=== PATIENT | male | born 1935 | race Caucasian/White ===

== ENCOUNTER 2017-06-10 11:00 | Observation (INO) | payer MEDICARE, OTHER ==
--- NOTE | 2017-06-10 11:12 | ER Document Report ---
ED General - General Stated Complaint: SYNCOPE Time Seen by Provider: 06/10/17 11:05 Notes: 82-year-old male with no reported medical problems presents with syncope without prodrome. Last thing he remembers he was sitting at the counter at " [employer]" when he vomited and lost consciousness. Paramedics found him pale diaphoretic with a pressure of 80 oh systolic. Given the small amount of fluid. Blood sugar was normal. His initial ECG was normal however he then went into an irregular rhythm for the paramedics. He currently has no complaints. He specifically denies chest pain abdominal pain shortness of breath dizziness unilateral weakness or numbness. TRAVEL OUTSIDE OF THE [place] IN LAST 30 DAYS: No - Related Data Allergies/Adverse Reactions: guaifenesin [From Entex] Allergy (Verified 06/10/17 11:20) phenylephrine HCl [From Entex] Allergy (Verified 06/10/17 11:20) phenylpropanolamine [From Entex] Allergy (Verified 06/10/17 11:20) pseudoephedrine tannate [From Entex] Allergy (Verified 06/10/17 11:20) Home Medications: Current Home Medications Ergocalciferol (Vitamin D2) [Vitamin D2] 50,000 unit PO ASDIR 06/10/17 [History] Past Medical History - General Information source: Patient - Social History Smoking Status: Current Every Day Smoker Family History: Reviewed & Not Pertinent - Past Medical History Cardiac Medical History: Reports: Hx Hypertension Denies: Hx Pulmonary Embolism Pulmonary Medical History: Reports: Hx Pneumonia Denies: Hx Asthma, Hx Bronchitis, Hx COPD, Hx Respiratory Failure, Hx Sleep Apnea, Hx Tuberculosis Neurological Medical History: Denies: Hx Cerebrovascular Accident, Hx Seizures Endocrine Medical History: Denies: Hx Graves' Disease, Hx Hyperthyroidism, Hx Hypothyroidism Renal/ Medical History: Denies: Hx Benign Prostatic Hyperplasia, Hx End Stage Renal Disease, Hx Kidney Stones, Hx Peritoneal Dialysis Malignancy Medical History: Denies Hx Leukemia, Denies Hx Lung Cancer, Reports Hx Lymphoma, Reports Hx Prostate Cancer GI Medical History: Reports: Hx Gastroesophageal Reflux Disease. Denies: Hx Crohn's Disease, Hx Hiatal Hernia, Hx Irritable Bowel, Hx Liver Failure, Hx Pancreatitis, Hx Ulcer Musculoskeltal Medical History: Denies Hx Arthritis, Denies Hx Fibromyalgia, Denies Hx Muscular Dystrophy Traumatic Medical History: Reports: Hx Fractures - right leg Infectious Medical History: Denies: Hx HIV Past Surgical History: Reports: Hx Tonsillectomy. Denies: Hx Appendectomy, Hx Bowel Surgery, Hx Cholecystectomy, Hx Colostomy, Hx Coronary Artery Bypass Graft , Hx Gastric Bypass Surgery, Hx Herniorrhaphy, Hx Pacemaker - Immunizations Hx Diphtheria, Pertussis, Tetanus Vaccination: Yes Hx Pneumococcal Vaccination: 07/07/00 Review of Systems - Review of Systems Notes: REVIEW OF SYSTEMS GEN: Denies fever, chills, weight loss ENT: Denies sore throat, nasal discharge, ear pain EYES: Denies blurry vision, eye pain, discharge CV: Denies chest pain, palpitations, edema RESP: Denies cough, shortness of breath, wheezing GI: D vomiting MSK: Denies joint pain/swelling, edema, SKIN: Denies rash, skin lesions LYMPH: Denies swollen glands/lymph nodes NEURO: Denies headache, focal weakness or numbness, dizziness PSYCH: Denies depression, suicidal or homicidal ideation PHYSICAL EXAMINATION General: No acute distress, well-nourished Head: Atraumatic, normocephalic ENT: Mouth normal, oropharynx moist, no exudates or tonsillar enlargement Eyes: Conjunctiva normal, pupils equal, lids normal Neck: No JVD, supple, no guarding CVS: Normal rate, regular rhythm, no murmurs Resp: No resp distress, equal and normal breath sounds bilaterally GI: Nondistended, soft, no tenderness to palpation, no rebound or guarding Ext: No deformities, no edema, normal range of motion in upper and lower ext Back: No CVA or midline TTP Skin: No rash, warm Lymphatic: No lymphadeopathy noted Neuro: Awake, alert. Face symmetric. GCS 15. Physical Exam - Vital signs Vitals: Temp Pulse Resp BP Pulse Ox 97.3 F 79 16 143/64 H 98 06/10/17 11:08 06/10/17 11:08 06/10/17 11:08 06/10/17 11:08 06/10/17 11:08 Course - Re-evaluation Re-evalutation: 06/10/17 11:11 Otherwise healthy 82-year-old male presents with worrisome sounding syncope with vomiting, sick be without prodrome in a regular rhythm prior to arrival in the ED. Was hypotensive. Now normotensive. No stigmata of valvular disease or other cause of syncope on exam. Differential includes cardiac arrhythmia electrolyte abnormality less likely stroke bleed or subarachnoid hemorrhage. Workup will include laboratory testing, EKG and cardiac monitoring. Given the abnormal EKG prior to arrival at the patient's age she will need to be admitted for observation. LAbs wnl. Trop negative. Spoke with Ravi, agrees with admitting to obs. 06/10/17 12:58 - Vital Signs Vital signs: Temp Pulse Resp BP Pulse Ox 97.3 F 79 16 143/64 H 98 06/10/17 11:08 06/10/17 11:08 06/10/17 11:15 06/10/17 11:08 06/10/17 11:08 - Laboratory Result Diagrams: 06/10/17 11:32 06/10/17 11:32 Laboratory results interpreted by me: 06/10/17 06/10/17 11:32 11:32 WBC 11.5 H RBC 3.94 L MCV 100 H MCH 34.1 H RDW 14.7 H Seg Neutrophils % 79.8 H Lymphocytes % 11.7 L Absolute Neutrophils 9.2 H BUN 22 H - EKG Interpretation by Me EKG shows normal: Sinus rhythm - left axis dev, [place] When compared to previous EKG there are: Changes noted - no FABIAN/STD Discharge - Discharge Clinical Impression: Syncope Qualifiers: Syncope type: unspecified Qualified Code(s): R55 - Syncope and collapse Condition: Good Disposition: ADMITTED OBSERVATION Admitting Provider: Kelly Referrals: HEMAL BHATIA MD [Primary Care Provider] - Follow up as needed
--- NOTE | 2017-06-10 11:53 | EKG REPORT ---
SEVERITY:- ABNORMAL ECG - SINUS RHYTHM NONSPECIFIC IVCD WITH LAD PROBABLE ANTEROSEPTAL INFARCT, OLD : Confirmed by: Kasie Ruiz 10-Jun-2017 11:52:56
[2017-06-10 12:04] LABS: ABSOLUTE EOSINOPHILS # (AUTO) 0.1 10^3/uL (0.0-0.6); ABSOLUTE LYMPHOCYTES (AUTO) 1.3 10^3/uL (0.5-4.7); ABSOLUTE MONOCYTES (AUTO) 0.9 10^3/uL (0.1-1.4); ABSOLUTE NEUT (AUTO) 9.2 10^3/uL (1.7-8.2); BASOPHILS % (AUTO) 0.4 % (0-2); EOSINOPHILS % (AUTO) 0.6 % (0-6); HEMATOCRIT 39.3 % (37.9-51.0); HEMOGLOBIN 13.5 g/dL (13.5-17.0); HGB HCT DIFFERENCE 1.2; LYMPHOCYTES % (AUTO) 11.7 % (13-45); MEAN CORPUSCULAR HEMOGLOBIN 34.1 pg (27.0-33.4); MEAN CORPUSCULAR HGB CONC 34.2 g/dL (32.0-36.0); MEAN CORPUSCULAR VOLUME 100 fl (80-97); MONOCYTES % (AUTO) 7.5 % (3-13); RED BLOOD COUNT 3.94 10^6/uL (4.35-5.55); RED CELL DISTRIBUTION WIDTH 14.7 % (11.5-14.0); SEGMENTED NEUTROPHILS % (AUTO) 79.8 % (42-78); WHITE BLOOD COUNT 11.5 10^3/uL (4.0-10.5)
[2017-06-10 12:22] LABS: ANION GAP 11 (5-19); BLOOD UREA NITROGEN 22 mg/dL (7-20); CARBON DIOXIDE 28 mmol/L (22-30); CHLORIDE 103 mmol/L (98-107); GLUCOSE 103 mg/dL (75-110); POTASSIUM 4.2 mmol/L (3.6-5.0); SODIUM 141.6 mmol/L (137-145)
[2017-06-10 15:04] LABS: APPEARANCE,URINE CLEAR; BILIRUBIN,URINE NEGATIVE (NEGATIVE); GLUCOSE, URINE NEGATIVE (NEGATIVE); KETONES,URINE NEGATIVE (NEGATIVE); LEUKOCYTE ESTERASE,URINE NEGATIVE (NEGATIVE); NITRITE,URINE NEGATIVE (NEGATIVE); PROTEIN,URINE NEGATIVE (NEGATIVE); UROBILINOGEN,URINE NEGATIVE mg/dL (<2.0)
[2017-06-10 15:13] LABS: BACTERIA,URINE TRACE /HPF
[2017-06-10] MEDS ORDERED: NORMAL SALINE 1000 ML 1,000 ML IV PRN (16:35)
--- NOTE | 2017-06-10 16:49 | PDOC H&P ---
History of Present Illness Admission Date/PCP: 06/10/17 13:43 HEMAL BHATIA, Patient complains of: Near syncope with hypotension vomiting and possible arrhythmia History of Present Illness: JOSIE TRUONG is a 82 year old male Past Medical History Cardiac Medical History: Reports: Hypertension Denies: Pulmonary Embolism Pulmonary Medical History: Reports: Pneumonia Denies: Asthma, Bronchitis, Chronic Obstructive Pulmonary Disease (COPD), Respiratory Failure, Sleep Apnea, Tuberculosis Neurological Medical History: Denies: Seizures Endocrine Medical History: Denies: Hyperthyroidism, Hypothyroidism Renal/ Medical History: Denies: End Stage Renal Disease Malignancy Medical History: Reports: Lymphoma Denies: Leukemia, Lung Cancer GI Medical History: Reports: Gastroesophageal Reflux Disease Denies: Crohn's Disease, Hiatal Hernia Musculoskeltal Medical History: Denies: Arthritis, Fibromyalgia Hematology: Reports: Anemia Denies: Hemophilia, Sickle Cell Disease Infectious Medical History: Denies: HIV Past Surgical History Past Surgical History: Reports: Tonsillectomy Denies: Appendectomy, Cholecystectomy, Colostomy, Coronary Artery Bypass Graft, Gastric Bypass Surgery, Herniorrhaphy, Pacemaker Social History Smoking Status: Current Every Day Smoker Hx Recreational Drug Use: No Hx Prescription Drug Abuse: No Family History Family History: Reviewed & Not Pertinent Parental Family History Reviewed: Yes Children Family History Reviewed: Yes Sibling(s) Family History Reviewed.: Yes Medication/Allergy Home Medications: Aspirin [Ecotrin 81 mg EC Tablet] 81 mg PO DAILY 06/10/17 Calcium Carbonate [Calcium] 600 mg PO DAILY 06/10/17 Ergocalciferol (Vitamin D2) [Vitamin D2] 50,000 units PO [id number] 06/10/17 Multivitamin [Daily Multiple Vitamin] 1 tab PO DAILY 06/10/17 Prednisone [Deltasone 10 mg Tablet] 10 mg PO DAILY 06/10/17 Allergies/Adverse Reactions: guaifenesin [From Entex] Allergy (Verified 06/10/17 11:20) phenylephrine HCl [From Entex] Allergy (Verified 06/10/17 11:20) phenylpropanolamine [From Entex] Allergy (Verified 06/10/17 11:20) pseudoephedrine tannate [From Entex] Allergy (Verified 06/10/17 11:20) Review of Systems All systems: as per PMH Physical Exam Vital Signs: Temp Pulse Resp BP Pulse Ox 97.3 F 79 17 134/64 H 97 06/10/17 11:08 06/10/17 11:08 06/10/17 14:01 06/10/17 14:00 06/10/17 14:01 General appearance: PRESENT: mild distress Head exam: PRESENT: atraumatic Eye exam: PRESENT: conjunctiva pink Mouth exam: PRESENT: dry mucosa Neck exam: ABSENT: carotid bruit, JVD Respiratory exam: PRESENT: clear to auscultation [place]iney Cardiovascular exam: PRESENT: RRR, +S1, +S2 Pulses: PRESENT: +1 pedal pulses bilateral Vascular exam: PRESENT: normal capillary refill GI/Abdominal exam: PRESENT: normal bowel sounds, soft Extremities exam: PRESENT: full ROM Musculoskeletal exam: PRESENT: ambulatory Neurological exam: PRESENT: alert, awake, oriented to time, reflexes normal, CN II-XII grossly intact, normal gait Results Laboratory Results: 06/10/17 14:05 Urine Color YELLOW Urine Appearance CLEAR Urine pH 6.0 Ur Specific [place] 1.010 Urine Protein NEGATIVE Urine Glucose (UA) NEGATIVE Urine Ketones NEGATIVE Urine Blood NEGATIVE Urine Nitrite NEGATIVE Ur Leukocyte Esterase NEGATIVE Assessment & Plan - Diagnosis (1) Hypotension Qualifiers: Hypotension type: unspecified hypotension type Qualified Code(s): I95.9 - Hypotension, unspecified Is this a current diagnosis for this admission?: Yes Plan: Possibly vasovagal. Will start IV fluids (2) Syncope Qualifiers: Syncope type: unspecified Qualified Code(s): R55 - Syncope and collapse Is this a current diagnosis for this admission?: Yes Plan: Vasovagal versus arrhythmia. Will start IV fluids and continue monitoring (3) Dehydration Is this a current diagnosis for this admission?: Yes Plan: Start IV fluids normal saline at 125 (4) Arrhythmia Is this a current diagnosis for this admission?: Yes Plan: Continue continuous monitoring to rule out causes of syncope
[2017-06-10] MEDS ORDERED: ERGOCALCIFEROL (VITAMIN D2) 50000 UNIT (1.25 MG) CAPSULE PO SCH (17:00)
[2017-06-10 17:51] LABS: CREATINE KINASE MB 0.83 ng/mL (<4.55)
[2017-06-10 17:52] LABS: TROPONIN I < 0.012 ng/mL
[2017-06-10] MEDS ORDERED: ENOXAPARIN SODIUM INJ 40 MG/0.4 ML DISP.SYRIN SUBCUT ONE (19:00)
[2017-06-10 23:38] LABS: CREATINE KINASE MB 0.64 ng/mL (<4.55); TROPONIN I 0.015 ng/mL
[2017-06-11 04:37] VITALS: BP 95/69
[2017-06-11 05:32] LABS: ANION GAP 8 (5-19); BLOOD UREA NITROGEN 19 mg/dL (7-20); CALCIUM 8.4 mg/dL (8.4-10.2); CARBON DIOXIDE 25 mmol/L (22-30); CHLORIDE 108 mmol/L (98-107); CREATINE KINASE 22 U/L (55-170); CREATININE RESULT 0.75 mg/dL (0.52-1.25); GLUCOSE 84 mg/dL (75-110); MAGNESIUM 1.6 mg/dL (1.6-2.3); POTASSIUM 4.3 mmol/L (3.6-5.0); SODIUM 141.3 mmol/L (137-145)
[2017-06-11 05:44] LABS: CREATINE KINASE MB 0.63 ng/mL (<4.55)
[2017-06-11 05:52] LABS: TROPONIN I < 0.012 ng/mL
--- NOTE | 2017-06-11 07:14 | EKG REPORT ---
SEVERITY:- ABNORMAL ECG - SINUS RHYTHM BORDERLINE IVCD WITH LAD : Confirmed by: Kasie Ruiz 11-Jun-2017 17:43:18
--- NOTE | 2017-06-11 08:43 | PDOC DISCHARGE SUMMARY ---
General - Admit/Disc Date/PCP Admission Date/Primary Care Provider: 06/10/17 13:43 HEMAL BHATIA, Discharge Date: 06/11/17 - Discharge Diagnosis (1) Hypotension Is this a current diagnosis for this admission?: Yes Summary: Improved with rehydration. (2) Syncope Is this a current diagnosis for this admission?: Yes Summary: Resolved continue current medications (3) Dehydration Is this a current diagnosis for this admission?: Yes Summary: Improved with IV fluids (4) Arrhythmia Is this a current diagnosis for this admission?: Yes Summary: No signs of arrhythmia. The monitor strip noticed by the EMS might have been just an artifact - Additional Information Discharge Diet: As Tolerated Discharge Activity: Activity As Tolerated Home Medications: Aspirin [Ecotrin 81 mg EC Tablet] 81 mg PO DAILY 06/10/17 Calcium Carbonate [Calcium] 600 mg PO DAILY 06/10/17 Ergocalciferol (Vitamin D2) [Vitamin D2] 50,000 units PO [id number] 06/10/17 Multivitamin [Daily Multiple Vitamin] 1 tab PO DAILY 06/10/17 Prednisone [Deltasone 10 mg Tablet] 10 mg PO DAILY 06/10/17 History of Present Illness History of Present Illness: JOSIE TRUONG is a 82 year old male Hospital Course Hospital Course: The patient did well after the admission for an observation. He has received IV fluids. He was monitored for 24 hours without any signs of arrhythmia or syncope Physical Exam Vital Signs: Temp Pulse Resp BP Pulse Ox 98.4 F 74 18 95/69 L 94 06/11/17 04:28 06/11/17 04:28 06/11/17 04:28 06/11/17 04:28 06/11/17 04:28 Intake & Output 06/10/17 06/11/17 06/12/17 06:59 06:59 06:59 Intake Total 1500 Output Total 900 Balance 600 General appearance: PRESENT: no acute distress Head exam: PRESENT: atraumatic Eye exam: PRESENT: conjunctiva pink Mouth exam: PRESENT: moist Neck exam: ABSENT: carotid bruit, JVD Respiratory exam: PRESENT: clear to auscultation destiney Cardiovascular exam: PRESENT: RRR, +S1, +S2 Pulses: PRESENT: +1 pedal pulses bilateral GI/Abdominal exam: PRESENT: normal bowel sounds, soft Extremities exam: PRESENT: full ROM Musculoskeletal exam: PRESENT: ambulatory Neurological exam: PRESENT: alert Results Laboratory Results: 06/11/17 05:06 06/10/17 06/11/17 14:05 05:06 Sodium 141.3 Potassium 4.3 Chloride 108 H Carbon Dioxide 25 Anion Gap 8 BUN 19 Creatinine 0.75 Est GFR ( Amer) > 60 Est GFR (Non-Af Amer) > 60 Glucose 84 Calcium 8.4 Magnesium 1.6 Urine Color YELLOW Urine Appearance CLEAR Urine pH 6.0 Ur Specific [place] 1.010 Urine Protein NEGATIVE Urine Glucose (UA) NEGATIVE Urine Ketones NEGATIVE Urine Blood NEGATIVE Urine Nitrite NEGATIVE Ur Leukocyte Esterase NEGATIVE 06/10/17 06/10/17 06/10/17 17:08 17:08 23:00 Creatine Kinase 24 L 23 L CK-MB (CK-2) 0.83 Troponin I < 0.012 06/10/17 06/11/17 06/11/17 23:00 05:06 05:06 Creatine Kinase 22 L CK-MB (CK-2) 0.64 0.63 Troponin I 0.015 < 0.012
[2017-06-11] MEDS ORDERED: (PENDING PHARMACY ID) (Calcium Carbonate [Calcium] 600 MG) PO SCH (10:00)
[2017-06-11] MEDS ORDERED: ENOXAPARIN SODIUM INJ 40 MG/0.4 ML DISP.SYRIN SUBCUT SCH (10:00)
[2017-06-11] MEDS ORDERED: MULTIVITAMIN TABLET PO SCH (10:00)
[2017-06-11] MEDS ORDERED: PREDNISONE 10 MG TABLET PO SCH (10:00)
[2017-06-11] MEDS ORDERED: ASPIRIN 81 MG TABLET, ENT COATED PO SCH (10:00)
[2017-06-11] MEDS ORDERED: CALCIUM CARBONATE 500 MG TABLET PO SCH (10:00)
== END 2017-06-11 10:27 | disposition home or self-care (01) ==
LOC: ER 11:00 → EH 13:43
PROVIDERS: ADMIT Internal Medicine; ATTEND Internal Medicine
DX: I95.9 Hypotension, unspecified (principal); R55 Syncope and collapse; E86.0 Dehydration; I49.9 Cardiac arrhythmia, unspecified; R11.10 Vomiting, unspecified; F17.200 Nicotine dependence, unspecified, uncomplicated; Z79.899 Other long term (current) drug therapy; Z79.82 Long term (current) use of aspirin; Z87.19 Personal history of other diseases of the digestive system
CPT/HCPCS: 93005 ×2; 99285; 36415 ×2; 82553 ×2; 82550 ×2; 83735; 85025; 80048 ×2; 81001; 84484 ×2; 93010 ×2; A9270 ×4; J1650; J7030; G0378; J7512

== ENCOUNTER 2017-11-01 21:55 | Inpatient (IN) | payer MEDICARE, OTHER ==
[2017-11-01 22:30] LABS: HEMATOCRIT 41.5 % (37.9-51.0); HEMOGLOBIN 14.1 g/dL (13.5-17.0); MEAN CORPUSCULAR HGB CONC 34.1 g/dL (32.0-36.0); MEAN CORPUSCULAR VOLUME 100 fl (80-97); RED BLOOD COUNT 4.16 10^6/uL (4.35-5.55); RED CELL DISTRIBUTION WIDTH 14.1 % (11.5-14.0)
[2017-11-01 22:34] LABS: INTERNATIONAL RATION (INR) 1.01; PROTHROMBIN TIME 13.8 SEC (11.4-15.4)
[2017-11-01 22:43] LABS: ALANINE AMINOTRANSFERASE 32 U/L (21-72); ALBUMIN 3.8 g/dL (3.5-5.0); ALKALINE PHOSPHATASE 100 U/L (38-126); ANION GAP 11 (5-19); ASPARTATE AMINO TRANSFERASE 24 U/L (17-59); BILIRUBIN,DIRECT 0.2 mg/dL (0.0-0.4); BILIRUBIN,TOTAL 1.7 mg/dL (0.2-1.3); BLOOD UREA NITROGEN 19 mg/dL (7-20); CALCIUM 9.4 mg/dL (8.4-10.2); CARBON DIOXIDE 27 mmol/L (22-30); CHLORIDE 101 mmol/L (98-107); GLUCOSE 108 mg/dL (75-110); POTASSIUM 4.2 mmol/L (3.6-5.0); TOTAL PROTEIN 6.2 g/dL (6.3-8.2)
[2017-11-01 22:47] LABS: ABSOLUTE LYMPHOCYTES# (MANUAL) 1.7 10^3/uL (0.5-4.7); ABSOLUTE NEUTROPHILS# (MANUAL) 21.4 10^3/uL (1.7-8.2); BAND NEUTROPHILS % (MANUAL) 2 % (3-5); BASOPHILS % (MANUAL) 0 % (0-2); EOSINOPHILS % (MANUAL) 0 % (0-6); LYMPHOCYTES % (MANUAL) 7 % (13-45); METAMYELOCYTES % (MANUAL) 1 % (0); MONOCYTES % (MANUAL) 4 % (3-13); SEGMENTED NEUTROPHILS % (MAN) 86 % (42-78); TOTAL CELLS COUNTED 100
[2017-11-01 22:49] LABS: ANISOCYTOSIS SLIGHT; PLATELET COMMENT ADEQUATE; PLATELET LARGE PRESENT; TOXIC VACUOLATION PRESENT
[2017-11-01 22:57] LABS: PLATELET COUNT 178 10^3/uL (150-450)
[2017-11-01 23:05] LABS: VENOUS BLOOD BASE EXCESS 1.9 mmol/L; VENOUS BLOOD HCO3 27.5 mmol/L (20-32); VENOUS BLOOD PCO2 46.3 mmHg (35-63); VENOUS BLOOD PH 7.39 (7.30-7.42)
--- NOTE | 2017-11-01 23:31 | ER Document Report ---
ED Fall - General Mode of Arrival: Ambulatory Information source: Patient TRAVEL OUTSIDE OF THE [place] IN LAST 30 DAYS: No <KRISTOPHER REDDING - Last Filed: 11/02/17 01:50> <IRIS CASTANEDA - Last Filed: 11/02/17 03:58> - General Chief Complaint: Fall Stated Complaint: FALLS Time Seen by Provider: 11/01/17 22:05 Notes: Patient is an 82 year old male that presents to the emergency department today with complaints of frequent falls at home. states the patient fell twice prior to arrival. states the patient states he felt dizzy prior to the fall. states that the patient complained of a sore throat recently. states the patient has not been drinking fluids much recently. Patient denies any abdominal pain or recent hospital admissions. (KRISTOPHER REDDING) - Related data Allergies/Adverse Reactions: guaifenesin [From Entex] Allergy (Verified 06/10/17 11:20) phenylephrine HCl [From Entex] Allergy (Verified 06/10/17 11:20) phenylpropanolamine [From Entex] Allergy (Verified 06/10/17 11:20) pseudoephedrine tannate [From Entex] Allergy (Verified 06/10/17 11:20) Past Medical History - General Information source: Patient - Social History Smoking Status: Unknown if Ever Smoked Cigarette use (# per day): No Frequency of alcohol use: None Drug Abuse: None Lives with: Family Family History: Reviewed & Not Pertinent Patient has suicidal ideation: No Patient has homicidal ideation: No - Past Medical History Cardiac Medical History: Reports: Hx Hypertension Pulmonary Medical History: Reports: Hx Pneumonia Malignancy Medical History: Reports Hx Lymphoma, Reports Hx Prostate Cancer GI Medical History: Reports: Hx Gastroesophageal Reflux Disease Traumatic Medical History: Reports: Hx Fractures - right leg Past Surgical History: Reports: Hx Tonsillectomy, Hx Urinary Tract Surgery - prostatectomy - Immunizations Hx Diphtheria, Pertussis, Tetanus Vaccination: Yes Hx Pneumococcal Vaccination: 07/07/00 <KRISTOPHER REDDING - Last Filed: 11/02/17 01:50> Review of Systems - Review of Systems Constitutional: No symptoms reported EENT: denies: Throat pain Cardiovascular: No symptoms reported Respiratory: See HPI, Cough Gastrointestinal: denies: Abdominal pain Genitourinary: No symptoms reported Male Genitourinary: No symptoms reported Musculoskeletal: No symptoms reported Skin: No symptoms reported Hematologic/Lymphatic: No symptoms reported Neurological/Psychological: No symptoms reported -: Yes All other systems reviewed and negative <KRISTOPHER REDDING - Last Filed: 11/02/17 01:50> Physical Exam - Vital signs Interpretation: Tachycardic, Hypoxic, Tachypneic - General General appearance: Alert In distress: Mild - HEENT Head: Normocephalic, Atraumatic Eyes: Normal Cornea: Normal Mucous membranes: Moist Pharynx: Normal Neck: Normal - Respiratory Respiratory status: No respiratory distress Breath sounds: Rales - bases b/l - Cardiovascular Rhythm: Regular - Abdominal Inspection: Normal Tenderness: Nontender - Back Back: Nontender - Extremities General upper extremity: Normal inspection, Normal ROM General lower extremity: Normal inspection, Normal ROM - Neurological Neuro grossly intact: Yes Cognition: Normal Orientation: AAOx4 Lotus Coma Scale Eye Opening: Spontaneous [place]us Coma Scale Verbal: Oriented [place] Coma Scale Motor: Obeys Commands [place] Coma Scale Total: 15 Motor strength normal: LUE, RUE, LLE, RLE - Skin Skin Temperature: Warm Skin Moisture: Dry Skin Color: Normal <IRIS CASTANEDA - Last Filed: 11/02/17 03:58> - Vital signs Vitals: Resp Pulse Ox 23 H 95 11/01/17 22:34 11/01/17 22:34 Course - Laboratory Result Diagrams: 11/01/17 21:29 11/01/17 21:29 <VAHIDKRISTOPHER - Last Filed: 11/02/17 01:50> - Laboratory Result Diagrams: 11/01/17 21:29 11/01/17 21:29 - Diagnostic Test Radiology reviewed: Image reviewed, Reports reviewed <IRIS CASTANEDA - Last Filed: 11/02/17 03:58> - Re-evaluation Re-evalutation: 11/02/17 Patient presents with cough, hypoxia, rales at bases bilaterally and chest x- ray concerning for pneumonia. Patient will be started on antibiotics and admitted to the hospitalist service. Patient has no history of asthma, COPD or smoking. Resting comfortably in the room on nasal cannula. Patient is agreeable to admission. Stable to telemetry admission. Of note, patient had fallen multiple times today and head CT was ordered as the patient complained of headache earlier. Patient and wish to decline head CT as they do not feel that he needs it at this time. I have explained why I have ordered that I think he should have it due to his multiple falls today but they stated that they would just like to pass on that for now. (IRIS CASTANEDA) - Vital Signs Vital signs: Temp Pulse Resp BP Pulse Ox 78 16 105/59 L 96 11/02/17 02:45 11/02/17 02:45 11/02/17 02:01 11/02/17 02:45 - Laboratory Laboratory results interpreted by me: 11/01/17 11/01/17 11/01/17 21:29 21:29 21:29 WBC 24.0 H RBC 4.16 L MCV 100 H MCH 34.0 H RDW 14.1 H Seg Neuts % (Manual) 86 H Band Neutrophils % 2 L Lymphocytes % (Manual) 7 L Metamyelocytes % 1 H Abs Neuts (Manual) 21.4 H Total Bilirubin 1.7 H NT-Pro-B Natriuret Pep 454 H Total Protein 6.2 L Discharge <KRISTOPHER REDDING - Last Filed: 11/02/17 01:50> - Discharge Admitting Provider: [facility] Unit Admitted: Telemetry <IRIS CASTANEDA - Last Filed: 11/02/17 03:58> - Discharge Clinical Impression: Hypoxemia Pneumonia Qualifiers: Pneumonia type: due to unspecified organism Laterality: right Lung location: lower lobe of lung Qualified Code(s): J18.1 - Lobar pneumonia, unspecified organism Condition: Stable Disposition: ADMITTED INPATIENT Scribe Attestation: 11/02/17 03:58 I personally performed the services described in the documentation, reviewed and edited the documentation which was dictated to the scribe in my presence, and it accurately records my words and actions. (IRIS CASTANEDA) Scribe Documentation - Scribe Written by New:: [place], 11/02/2017 [id number] acting as scribe for :: Karen <KRISTOPHER REDDING - Last Filed: 11/02/17 01:50>
[2017-11-02] MEDS ORDERED: AZITHROMYCIN INJ 500 MG VIAL IV ONE (00:14)
[2017-11-02] MEDS ORDERED: CEFTRIAXONE 1 GM/D5W RTU 1 GM/50 ML RTUPB IV ONE (00:14)
[2017-11-02] MEDS ORDERED: ACETAMINOPHEN 325 MG TABLET PO PRN (00:17)
[2017-11-02] MEDS ORDERED: IPRATROPIUM/ALBUTEROL 0.5-2.5 MG/3 ML AMPUL NEB PRN (00:17)
[2017-11-02] MEDS ORDERED: CHLORPHENIRAMINE MALEATE 4 MG TABLET PO ONE (00:17)
[2017-11-02 00:25] LABS: APPEARANCE,URINE CLEAR; BILIRUBIN,URINE NEGATIVE (NEGATIVE); COLOR,URINE YELLOW; GLUCOSE, URINE NEGATIVE (NEGATIVE); KETONES,URINE NEGATIVE (NEGATIVE); LEUKOCYTE ESTERASE,URINE NEGATIVE (NEGATIVE); NITRITE,URINE NEGATIVE (NEGATIVE); PROTEIN,URINE NEGATIVE (NEGATIVE); URINE SPECIFIC GRAVITY 1.015; UROBILINOGEN,URINE NEGATIVE mg/dL (<2.0)
[2017-11-02] MEDS ORDERED: LEVOFLOXACIN 750 MG/D5W RTU 750 MG/150 ML RTUPB IV ONE (01:00)
[2017-11-02] MEDS ORDERED: CEFTRIAXONE INJ 1000 MG VIAL ONE (01:32)
--- NOTE | 2017-11-02 01:51 | RADIOLOGY REPORT (SQ) ---
EXAM DESCRIPTION: CHEST SINGLE VIEW CLINICAL HISTORY: 82 years Male, AMS COMPARISON: 6.17.14 FINDINGS: Increased lung volume, clear parenchyma, normal cardiac silhouette, and intact bony thorax. IMPRESSION: No acute cardiopulmonary findings.
[2017-11-02] MEDS ORDERED: IPRATROPIUM/ALBUTEROL 0.5-2.5 MG/3 ML AMPUL NEB SCH (02:00)
[2017-11-02 04:56] LABS: HEMATOCRIT 39.7 % (37.9-51.0); HEMOGLOBIN 13.5 g/dL (13.5-17.0); MEAN CORPUSCULAR HEMOGLOBIN 33.6 pg (27.0-33.4); MEAN CORPUSCULAR VOLUME 99 fl (80-97); PLATELET COUNT 157 10^3/uL (150-450); RED BLOOD COUNT 4.01 10^6/uL (4.35-5.55); RED CELL DISTRIBUTION WIDTH 14.8 % (11.5-14.0); WHITE BLOOD COUNT 20.9 10^3/uL (4.0-10.5)
[2017-11-02 04:58] LABS: ANION GAP 11 (5-19); BLOOD UREA NITROGEN 21 mg/dL (7-20); CALCIUM 8.9 mg/dL (8.4-10.2); CARBON DIOXIDE 25 mmol/L (22-30); CHLORIDE 104 mmol/L (98-107); GLUCOSE 107 mg/dL (75-110); POTASSIUM 4.6 mmol/L (3.6-5.0); SODIUM 139.7 mmol/L (137-145)
[2017-11-02 05:16] LABS: ABSOLUTE LYMPHOCYTES# (MANUAL) 1.9 10^3/uL (0.5-4.7); ABSOLUTE MONOCYTES # (MANUAL) 0.4 10^3/uL (0.1-1.4); ABSOLUTE NEUTROPHILS# (MANUAL) 18.6 10^3/uL (1.7-8.2); BAND NEUTROPHILS % (MANUAL) 3 % (3-5); BASOPHILS % (MANUAL) 0 % (0-2); EOSINOPHILS % (MANUAL) 0 % (0-6); LYMPHOCYTES % (MANUAL) 5 % (13-45); MONOCYTES % (MANUAL) 2 % (3-13); SEGMENTED NEUTROPHILS % (MAN) 86 % (42-78); TOTAL CELLS COUNTED 100
[2017-11-02 05:17] LABS: ANISOCYTOSIS SLIGHT; OVALOCYTES SLIGHT; PLATELET COMMENT ADEQUATE; POIKILOCYTOSIS SLIGHT
[2017-11-02] MEDS: HEPARIN SOD (PORCINE) 5,000 UNIT/ML 1 ML SYRINGE SUBCUT SCH ×3 (05:31→21:19)
--- NOTE | 2017-11-02 06:22 | PDOC H&P ---
History of Present Illness Admission Date/PCP: 11/02/17 00:17 HEMAL BHATIA, Patient complains of: Falls and cough History of Present Illness: JOSIE TRUONG is a 82 year old male with an unclear past medical history who presents with generalized weakness followed by falls to the floor resulting in skin tears prompting evaluation emergency room. He is found to have fever, leukocytosis, respiratory Rales with nonproductive cough. Patient denies recent change in medications, no coughing or choking with eating, no rhinorrhea or GERD but has had several days of sore throat. He started on empiric antibiotics and referred to the hospitalist for admission. Past Medical History Cardiac Medical History: Reports: Hypertension Denies: Pulmonary Embolism Pulmonary Medical History: Reports: Pneumonia Denies: Asthma, Bronchitis, Chronic Obstructive Pulmonary Disease (COPD), Respiratory Failure, Sleep Apnea, Tuberculosis Neurological Medical History: Denies: Seizures Endocrine Medical History: Denies: Hyperthyroidism, Hypothyroidism Renal/ Medical History: Denies: End Stage Renal Disease Malignancy Medical History: Reports: Lymphoma Denies: Leukemia, Lung Cancer GI Medical History: Reports: Gastroesophageal Reflux Disease Denies: Crohn's Disease, Hiatal Hernia Musculoskeltal Medical History: Denies: Arthritis, Fibromyalgia Psychiatric Medical History: Denies: Depression Hematology: Reports: Anemia Denies: Hemophilia, Sickle Cell Disease Infectious Medical History: Denies: HIV Past Surgical History Past Surgical History: Reports: Tonsillectomy Denies: Appendectomy, Cholecystectomy, Colostomy, Coronary Artery Bypass Graft, Gastric Bypass Surgery, Herniorrhaphy, Pacemaker Social History Information Source: Patient, [facility] Records Lives with: Family Smoking Status: Never Smoker Frequency of Alcohol Use: Rare Hx Recreational Drug Use: No Drugs: None Hx Prescription Drug Abuse: No - Advance Directive Resuscitation Status: Full Code Family History Family History: Hypertension Parental Family History Reviewed: Yes Children Family History Reviewed: Yes Sibling(s) Family History Reviewed.: Yes Medication/Allergy Home Medications: Aspirin [Ecotrin 81 mg EC Tablet] 81 mg PO DAILY 06/10/17 Calcium Carbonate [Calcium] 600 mg PO DAILY 06/10/17 Ergocalciferol (Vitamin D2) [Vitamin D2] 50,000 units PO [id number] 06/10/17 Multivitamin [Daily Multiple Vitamin] 1 tab PO DAILY 06/10/17 Prednisone [Deltasone 10 mg Tablet] 10 mg PO DAILY 06/10/17 Allergies/Adverse Reactions: guaifenesin [From Entex] Allergy (Verified 06/10/17 11:20) phenylephrine HCl [From Entex] Allergy (Verified 06/10/17 11:20) phenylpropanolamine [From Entex] Allergy (Verified 06/10/17 11:20) pseudoephedrine tannate [From Entex] Allergy (Verified 06/10/17 11:20) Review of Systems Constitutional: ABSENT: chills, fever(s), headache(s), weight gain, weight loss Eyes: ABSENT: visual disturbances Ears: ABSENT: hearing changes Cardiovascular: ABSENT: chest pain, dyspnea on exertion, edema, orthropnea, palpitations Respiratory: ABSENT: cough, hemoptysis Gastrointestinal: ABSENT: abdominal pain, constipation, diarrhea, hematemesis, hematochezia, nausea, vomiting Genitourinary: ABSENT: dysuria, hematuria Musculoskeletal: ABSENT: joint swelling Integumentary: ABSENT: rash, wounds Neurological: ABSENT: abnormal gait, abnormal speech, confusion, dizziness, focal weakness, syncope Psychiatric: ABSENT: anxiety, depression, homidical ideation, suicidal ideation Endocrine: ABSENT: cold intolerance, heat intolerance, polydipsia, polyuria Hematologic/Lymphatic: ABSENT: easy bleeding, easy bruising Physical Exam Vital Signs: Temp Pulse Resp BP Pulse Ox 100.2 F 101 H 20 131/61 H 92 11/02/17 05:00 11/02/17 05:00 11/02/17 05:00 11/02/17 05:00 11/02/17 05:00 Pulse Oximeter Continuous Start: 11/02/17 00: 17 Freq: RTQ4 Status: Active Document 11/02/17 04:00 CBR (Rec: 11/02/17 04:51 CBR [email or web address]) Pulse Oximetry Assessment Oxygen Saturation (92-100) 96 Oxygen Flow Rate (L/min) 2 Oxygen Delivery Method Nasal Cannula Fraction of Inspired Oxygen (FIO2) 28 Equipment Usage Equipment in Use Continuous SpO2 Machine # ER Monitor Intake & Output 10/31/17 11/01/17 11/02/17 11:59 11:59 11:59 Intake Total 10 Balance 10 Weight 59.3 kg General appearance: PRESENT: cooperative, mild distress, thin, well-developed, well-nourished Head exam: PRESENT: atraumatic, normocephalic Eye exam: PRESENT: conjunctiva pink, EOMI, PERRLA. ABSENT: scleral icterus Ear exam: PRESENT: normal external ear exam Mouth exam: PRESENT: moist, tongue midline Neck exam: ABSENT: carotid bruit, JVD, lymphadenopathy, thyromegaly Respiratory exam: PRESENT: accessory muscle use, clear to auscultation destiney, prolonged expiratory phas, rales, retraction, rhonchi, symmetrical, tachypnea. ABSENT: wheezes Cardiovascular exam: PRESENT: RRR. ABSENT: diastolic murmur, rubs, systolic murmur Pulses: PRESENT: normal dorsalis pedis pul Vascular exam: PRESENT: normal capillary refill GI/Abdominal exam: PRESENT: normal bowel sounds, soft. ABSENT: distended, guarding, mass, organolmegaly, rebound, tenderness Rectal exam: PRESENT: deferred Extremities exam: PRESENT: full ROM. ABSENT: calf tenderness, clubbing, pedal edema Musculoskeletal exam: PRESENT: other - Generalized atrophy Neurological exam: PRESENT: alert, awake, oriented to person, oriented to place , oriented to time, oriented to situation, CN II-XII grossly intact. ABSENT: motor sensory deficit Psychiatric exam: PRESENT: appropriate affect, normal mood. ABSENT: homicidal ideation, suicidal ideation Skin exam: PRESENT: dry, intact, skin tears - Right lower leg, warm. ABSENT: cyanosis, rash Results Laboratory Results: 11/02/17 04:31 11/02/17 04:31 11/02/17 11/02/17 04:31 04:31 WBC 20.9 H RBC 4.01 L Hgb 13.5 Hct 39.7 MCV 99 H MCH 33.6 H MCHC 34.0 RDW 14.8 H Plt Count 157 Seg Neutrophils % Not Reportable Lymphocytes % Not Reportable Monocytes % Not Reportable Eosinophils % Not Reportable Basophils % Not Reportable Absolute Neutrophils Not Reportable Absolute Lymphocytes Not Reportable Absolute Monocytes Not Reportable Absolute Eosinophils Not Reportable Absolute Basophils Not Reportable Sodium 139.7 Potassium 4.6 Chloride 104 Carbon Dioxide 25 Anion Gap 11 BUN 21 H Creatinine 0.84 Est GFR ( Amer) > 60 Est GFR (Non-Af Amer) > 60 Glucose 107 Calcium 8.9 Impressions: Chest X-Ray 11/01/17 22:15 IMPRESSION: No acute cardiopulmonary findings. Assessment & Plan - Diagnosis (1) Pneumonia Qualifiers: Pneumonia type: due to unspecified organism Laterality: right Lung location: lower lobe of lung Qualified Code(s): J18.1 - Lobar pneumonia, unspecified organism Is this a current diagnosis for this admission?: Yes Plan: Pneumonia care set, empiric antibiotics follow-up blood and sputum culture (2) Falls Is this a current diagnosis for this admission?: Yes Plan: Likely secondary to orthostatic hypotension, evaluate orthostatic blood pressures, (3) Orthostatic hypotension Is this a current diagnosis for this admission?: Yes Plan: IV fluid challenge, NIKA stockings and education (4) Hypoxemia Is this a current diagnosis for this admission?: Yes Plan: Secondary to #1, supplemental oxygen. - Time Time Spent: 50 to 70 Minutes - Inpatient Certification Medical Necessity: Need Close Monitoring Due to Risk of Patient Decompensation
[2017-11-02] MEDS: NORMAL SALINE 1000 ML 1,000 ML IV PRN ×2 (06:37→10:13)
--- NOTE | 2017-11-02 08:13 | EKG REPORT ---
SEVERITY:- ABNORMAL ECG - SINUS RHYTHM LEFT ANTERIOR FASCICULAR BLOCK PROBABLE ANTEROSEPTAL INFARCT, OLD : Confirmed by: Shaggy Sewell MD 02-Nov-2017 08:12:48
[2017-11-02] MEDS ORDERED: ERGOCALCIFEROL (VITAMIN D2) 50000 UNIT (1.25 MG) CAPSULE PO SCH (09:00)
[2017-11-02] MEDS ORDERED: DIPHENHYDRAMINE HCL 25 MG CAPSULE PO PRN (09:01)
[2017-11-02] MEDS: ASPIRIN 81 MG TABLET, ENT COATED PO SCH (10:10)
[2017-11-02] MEDS: CALCIUM CARBONATE 500 MG TABLET PO SCH (10:10)
[2017-11-02] MEDS: MULTIVITAMIN TABLET PO SCH (10:10)
[2017-11-02] MEDS: PREDNISONE 10 MG TABLET PO SCH (10:10)
[2017-11-02] MEDS: SODIUM CHLORIDE NASAL SPRAY 44 ML NASL SCH ×3 (10:59→21:19)
[2017-11-02] MEDS: FLUTICASONE NASAL SPRAY 50 MCG/SPRY 120 SPRAY/16 GM NASL SCH ×2 (10:59→21:21)
--- NOTE | 2017-11-02 12:53 | PDOC PROGRESS REPORT ---
Subjective Progress Note for:: 11/02/17 Subjective:: patient is feeling a little better than he was last night. Coughing up some yellow phlegm. No fever today as far as he knows. Appetite poor, no chest pain or shortness of breath. No wheezing. Reason For Visit: FALLS,PNEUMONIA Weak, falling recently Physical Exam Vital Signs: Temp Pulse Resp BP Pulse Ox 98.5 F 84 16 117/52 L 97 11/02/17 11:39 11/02/17 11:39 11/02/17 11:39 11/02/17 11:39 11/02/17 11:39 Pulse Oximeter Continuous Start: 11/02/17 00: 17 Freq: RTQ4 Status: Active Document 11/02/17 08:00 J (Rec: 11/02/17 09:20 JDR [email or web address]) Pulse Oximetry Assessment Equipment Usage Equipment Standby Continuous SpO2 Machine # 0 Additional RT Notes Other no pulse ox monitors avaible. pt on nursing monitor Intake & Output 11/01/17 11/02/17 11/03/17 06:59 06:59 06:59 Intake Total 10 0 Output Total 200 Balance 10 -200 Weight 59.3 kg General appearance: PRESENT: no acute distress, cooperative, thin Eye exam: ABSENT: scleral icterus Ear exam: PRESENT: normal external ear exam Mouth exam: PRESENT: tongue midline Respiratory exam: PRESENT: decreased breath sounds, rhonchi, unlabored. ABSENT : rales, wheezes GI/Abdominal exam: PRESENT: normal bowel sounds, soft. ABSENT: distended, tenderness Rectal exam: PRESENT: deferred Extremities exam: ABSENT: calf tenderness, pedal edema Neurological exam: PRESENT: alert, awake, oriented to person, oriented to place , oriented to situation, CN II-XII grossly intact Psychiatric exam: PRESENT: appropriate affect. ABSENT: anxious Skin exam: PRESENT: dry, warm Results Laboratory Results: 11/02/17 04:31 11/02/17 04:31 11/02/17 11/02/17 04:31 04:31 WBC 20.9 H RBC 4.01 L Hgb 13.5 Hct 39.7 MCV 99 H MCH 33.6 H MCHC 34.0 RDW 14.8 H Plt Count 157 Seg Neutrophils % Not Reportable Lymphocytes % Not Reportable Monocytes % Not Reportable Eosinophils % Not Reportable Basophils % Not Reportable Absolute Neutrophils Not Reportable Absolute Lymphocytes Not Reportable Absolute Monocytes Not Reportable Absolute Eosinophils Not Reportable Absolute Basophils Not Reportable Sodium 139.7 Potassium 4.6 Chloride 104 Carbon Dioxide 25 Anion Gap 11 BUN 21 H Creatinine 0.84 Est GFR ( Amer) > 60 Est GFR (Non-Af Amer) > 60 Glucose 107 Calcium 8.9 Impressions: Chest X-Ray 11/01/17 22:15 IMPRESSION: No acute cardiopulmonary findings. Assessment & Plan - Diagnosis (1) Pneumonia Qualifiers: Pneumonia type: due to unspecified organism Laterality: right Lung location: lower lobe of lung Qualified Code(s): J18.1 - Lobar pneumonia, unspecified organism Is this a current diagnosis for this admission?: Yes Plan: Sputum culture and blood cultures pending. Patient feels better after a round of antibiotics. We will continue Levaquin 750 mg IV daily. Patient is not wheezing. Does not have chest tightness. I have discontinued his duo nebs. Patient has some sinus congestion, continue Flonase and nasal saline added. (2) Falls Is this a current diagnosis for this admission?: Yes Plan: Possibly second secondary to acute illness with hypoxemia and hypotension. Patient is on fall precautions. Physical therapy is ordered. (3) Hypoxemia Is this a current diagnosis for this admission?: Yes Plan: Improving with treatment for pneumonia and with nasal cannula oxygen. Continue current care and monitor oxygen status. (4) Orthostatic hypotension Is this a current diagnosis for this admission?: Yes Plan: Likely due to acute infection and dehydration. Blood pressure has improved with fluid hydration. Patient is not dizzy. We will continue to monitor blood pressure. - Time Time Spent with patient: 25-34 minutes Medications reviewed and adjusted accordingly: Yes - Inpatient Certification Based on my medical assessment, after consideration of the patient's comorbidities, presenting symptoms, or acuity I expect that the services needed warrant INPATIENT care.: Yes I certify that my determination is in accordance with my understanding of Medicare's requirements for reasonable and necessary INPATIENT services [42 CFR 412.3e].: Yes Medical Necessity: Significant Comorbidiites Make Outpatient Treatment Too Risky , Need Close Monitoring Due to Risk of Patient Decompensation, Need for IV Antibiotics, Risk of Complication if Not Cared For in Hospital
[2017-11-03 05:46] LABS: ABSOLUTE EOSINOPHILS # (AUTO) 0.1 10^3/uL (0.0-0.6); ABSOLUTE LYMPHOCYTES (AUTO) 0.6 10^3/uL (0.5-4.7); ABSOLUTE MONOCYTES (AUTO) 0.8 10^3/uL (0.1-1.4); ABSOLUTE NEUT (AUTO) 9.8 10^3/uL (1.7-8.2); BASOPHILS % (AUTO) 0.3 % (0-2); EOSINOPHILS % (AUTO) 0.7 % (0-6); HEMOGLOBIN 13.1 g/dL (13.5-17.0); LYMPHOCYTES % (AUTO) 5.5 % (13-45); MEAN CORPUSCULAR HEMOGLOBIN 35.1 pg (27.0-33.4); MEAN CORPUSCULAR HGB CONC 34.6 g/dL (32.0-36.0); MEAN CORPUSCULAR VOLUME 102 fl (80-97); MONOCYTES % (AUTO) 7.4 % (3-13); PLATELET COUNT 117 10^3/uL (150-450); RED BLOOD COUNT 3.74 10^6/uL (4.35-5.55); RED CELL DISTRIBUTION WIDTH 14.4 % (11.5-14.0); SEGMENTED NEUTROPHILS % (AUTO) 86.1 % (42-78); TOTAL CELLS COUNTED % (AUTO) 100 %; WHITE BLOOD COUNT 11.4 10^3/uL (4.0-10.5)
[2017-11-03 06:00] LABS: ANION GAP 9 (5-19); BLOOD UREA NITROGEN 18 mg/dL (7-20); CARBON DIOXIDE 26 mmol/L (22-30); CHLORIDE 109 mmol/L (98-107); GLUCOSE 79 mg/dL (75-110); POTASSIUM 4.1 mmol/L (3.6-5.0)
[2017-11-03] MEDS: HEPARIN SOD (PORCINE) 5,000 UNIT/ML 1 ML SYRINGE SUBCUT SCH ×3 (06:00→21:09)
[2017-11-03] MEDS: SODIUM CHLORIDE NASAL SPRAY 44 ML NASL SCH ×4 (08:01→21:07)
[2017-11-03] MEDS: LEVOFLOXACIN 750 MG/D5W RTU 750 MG/150 ML RTUPB IV SCH (08:01)
[2017-11-03] MEDS: PREDNISONE 10 MG TABLET PO SCH (10:02)
[2017-11-03] MEDS: CALCIUM CARBONATE 500 MG TABLET PO SCH (10:02)
[2017-11-03] MEDS: MULTIVITAMIN TABLET PO SCH (10:02)
[2017-11-03] MEDS: ASPIRIN 81 MG TABLET, ENT COATED PO SCH (10:02)
[2017-11-03] MEDS: FLUTICASONE NASAL SPRAY 50 MCG/SPRY 120 SPRAY/16 GM NASL SCH ×2 (10:07→21:09)
--- NOTE | 2017-11-03 15:07 | PDOC PROGRESS REPORT ---
Subjective Progress Note for:: 11/03/17 Subjective:: He is breathing better today. Coughing up some yellowish phlegm. No fevers or chills. He feeling weak and would like to try to work with physical therapy. Appetite is fair. No nausea vomiting constipation diarrhea or abdominal pain. No dysuria. Reason For Visit: FALLS,PNEUMONIA Physical Exam Vital Signs: Temp Pulse Resp BP Pulse Ox 98.9 F 88 16 129/62 H 92 11/03/17 11:55 11/03/17 11:55 11/03/17 11:55 11/03/17 11:55 11/03/17 11:55 Pulse Oximeter Continuous Start: 11/02/17 00: 17 Freq: RTQ4 Status: Hold Document 11/02/17 08:00 [facility] (Rec: 11/02/17 09:20 J [email or web address]) Pulse Oximetry Assessment Equipment Usage Equipment Standby Continuous SpO2 Machine # 0 Additional RT Notes Other no pulse ox monitors avaible. pt on nursing monitor Intake & Output 11/02/17 11/03/17 11/04/17 06:59 06:59 06:59 Intake Total 10 1923 Output Total 1225 Balance 10 698 Weight 59.3 kg 62.1 kg General appearance: PRESENT: no acute distress, cooperative, thin Head exam: PRESENT: atraumatic, normocephalic Eye exam: PRESENT: EOMI Mouth exam: PRESENT: neck supple, tongue midline Respiratory exam: PRESENT: rhonchi - Right mid lung, unlabored. ABSENT: wheezes Cardiovascular exam: PRESENT: RRR. ABSENT: systolic murmur GI/Abdominal exam: PRESENT: normal bowel sounds, soft. ABSENT: distended, firm , tenderness Extremities exam: ABSENT: calf tenderness, pedal edema Musculoskeletal exam: PRESENT: normal inspection Neurological exam: PRESENT: alert, awake, oriented to person, oriented to place , oriented to situation, CN II-XII grossly intact Psychiatric exam: PRESENT: appropriate affect. ABSENT: anxious Skin exam: PRESENT: dry, warm Results Laboratory Results: 11/03/17 04:59 11/03/17 04:59 11/03/17 11/03/17 04:59 04:59 WBC 11.4 H RBC 3.74 L Hgb 13.1 L Hct 38.0 MCV 102 H MCH 35.1 H MCHC 34.6 RDW 14.4 H Plt Count 117 L Seg Neutrophils % 86.1 H Lymphocytes % 5.5 L Monocytes % 7.4 Eosinophils % 0.7 Basophils % 0.3 Absolute Neutrophils 9.8 H Absolute Lymphocytes 0.6 Absolute Monocytes 0.8 Absolute Eosinophils 0.1 Absolute Basophils 0.0 Sodium 144.0 Potassium 4.1 Chloride 109 H Carbon Dioxide 26 Anion Gap 9 BUN 18 Creatinine 0.86 Est GFR ( Amer) > 60 Est GFR (Non-Af Amer) > 60 Glucose 79 Calcium 9.0 Impressions: Chest X-Ray 11/01/17 22:15 IMPRESSION: No acute cardiopulmonary findings. Assessment & Plan - Diagnosis (1) Pneumonia Qualifiers: Pneumonia type: due to unspecified organism Laterality: right Lung location: lower lobe of lung Qualified Code(s): J18.1 - Lobar pneumonia, unspecified organism Is this a current diagnosis for this admission?: Yes Plan: Leukocytosis improving on Levaquin. Patient is also improving. We will continue Levaquin and await blood culture and sputum culture results. (2) Falls Is this a current diagnosis for this admission?: Yes Plan: Recently could have been due to acute illness however he has been falling in the home prior to this. He has not been losing consciousness. Will order physical therapy to assess strength and capacity and to see if he needs an acute rehab stay. Fall precautions in place. (3) Hypoxemia Is this a current diagnosis for this admission?: Yes Plan: Improving with treatment for pneumonia. Will hope to titrate oxygen off prior to discharge. (4) Orthostatic hypotension Is this a current diagnosis for this admission?: Yes Plan: Blood pressure stabilizing with treatment for pneumonia. We will continue to monitor. - Time Time Spent with patient: 15-24 minutes Medications reviewed and adjusted accordingly: Yes - Inpatient Certification Based on my medical assessment, after consideration of the patient's comorbidities, presenting symptoms, or acuity I expect that the services needed warrant INPATIENT care.: Yes I certify that my determination is in accordance with my understanding of Medicare's requirements for reasonable and necessary INPATIENT services [42 CFR 412.3e].: Yes Medical Necessity: Significant Comorbidiites Make Outpatient Treatment Too Risky , Need for IV Antibiotics
[2017-11-04 05:12] LABS: HEMOGLOBIN 12.8 g/dL (13.5-17.0); MEAN CORPUSCULAR HEMOGLOBIN 34.5 pg (27.0-33.4); MEAN CORPUSCULAR HGB CONC 34.6 g/dL (32.0-36.0); MEAN CORPUSCULAR VOLUME 100 fl (80-97); PLATELET COUNT 149 10^3/uL (150-450); RED BLOOD COUNT 3.71 10^6/uL (4.35-5.55); RED CELL DISTRIBUTION WIDTH 14.3 % (11.5-14.0); WHITE BLOOD COUNT 10.4 10^3/uL (4.0-10.5)
[2017-11-04] MEDS: HEPARIN SOD (PORCINE) 5,000 UNIT/ML 1 ML SYRINGE SUBCUT SCH ×3 (05:15→21:33)
[2017-11-04] MEDS: LEVOFLOXACIN 750 MG/D5W RTU 750 MG/150 ML RTUPB IV SCH (07:19)
[2017-11-04] MEDS: SODIUM CHLORIDE NASAL SPRAY 44 ML NASL SCH ×4 (07:19→21:32)
[2017-11-04] MEDS: ASPIRIN 81 MG TABLET, ENT COATED PO SCH (10:39)
[2017-11-04] MEDS: PREDNISONE 10 MG TABLET PO SCH (10:39)
[2017-11-04] MEDS: CALCIUM CARBONATE 500 MG TABLET PO SCH (10:39)
[2017-11-04] MEDS: MULTIVITAMIN TABLET PO SCH (10:39)
[2017-11-04] MEDS: FLUTICASONE NASAL SPRAY 50 MCG/SPRY 120 SPRAY/16 GM NASL SCH ×2 (10:39→21:31)
--- NOTE | 2017-11-04 12:42 | PDOC PROGRESS REPORT ---
Subjective Progress Note for:: 11/04/17 Subjective:: Feels he is improving, but still feeling very weak. No recurrent falls while at the hospital. No fever or chills, no chest pain or palpitations. States she is getting out yellow phlegm. No headaches or dizziness or syncope. Reason For Visit: FALLS,PNEUMONIA Physical Exam Vital Signs: Temp Pulse Resp BP Pulse Ox 97.7 F 77 16 140/66 H 95 11/04/17 10:48 11/04/17 10:48 11/04/17 10:48 11/04/17 10:48 11/04/17 10:48 Pulse Oximeter Continuous Start: 11/02/17 00: 17 Freq: RTQ4 Status: Hold Document 11/02/17 08:00 GABRIEL (Rec: 11/02/17 09:20 J [email or web address]) Pulse Oximetry Assessment Equipment Usage Equipment Standby Continuous SpO2 Machine # 0 Additional RT Notes Other no pulse ox monitors avaible. pt on nursing monitor Intake & Output 11/03/17 11/04/17 11/05/17 06:59 06:59 06:59 Intake Total 1923 1316 Output Total 1225 1000 Balance 698 316 Weight 62.1 kg 61.8 kg GEN: NAD, well-developed, well-nourished CV: RRR, NL S1S2 LUNGS: Few rhonchi bilaterally ABDOMEN Soft, NT, +BS EXTERMITIES: No e/c/c NEURO: Alert, oriented Results Laboratory Results: 11/04/17 04:50 11/03/17 04:59 11/04/17 04:50 WBC 10.4 RBC 3.71 L Hgb 12.8 L Hct 37.0 L MCV 100 H MCH 34.5 H MCHC 34.6 RDW 14.3 H Plt Count 149 L Impressions: Chest X-Ray 11/01/17 22:15 IMPRESSION: No acute cardiopulmonary findings. Assessment & Plan - Plan Summary Plan Summary: (1) suspected community-acquired pneumonia Qualifiers: Pneumonia type: due to unspecified organism Laterality: right Lung location: lower lobe of lung Qualified Code(s): J18.1 - Lobar pneumonia, unspecified organism Is this a current diagnosis for this admission?: Yes Plan: Leukocytosis improving on Levaquin. Patient is also improving. We will continue Levaquin and await blood culture and sputum culture results. We will follow-up chest x-ray PA and lateral, as initial chest x-ray was apparently unrevealing. (2) Falls Is this a current diagnosis for this admission?: Yes Plan: Recently could have been due to acute illness; However he has been falling in the home prior to this. He has not been losing consciousness. physical therapy to assess strength and capacity and to see if he needs an acute rehab stay. Fall precautions in place. (3) Hypoxemia Is this a current diagnosis for this admission?: Yes Plan: Improving with treatment for pneumonia. Will hope to titrate oxygen off prior to discharge. (4) Orthostatic hypotension Is this a current diagnosis for this admission?: Yes Plan: Blood pressure stabilizing with treatment for pneumonia. We will continue to monitor. - Time Time Spent with patient: 15-24 minutes Medications reviewed and adjusted accordingly: Yes
[2017-11-05 05:28] LABS: ABSOLUTE EOSINOPHILS # (AUTO) 0.1 10^3/uL (0.0-0.6); ABSOLUTE MONOCYTES (AUTO) 1.3 10^3/uL (0.1-1.4); ABSOLUTE NEUT (AUTO) 7.8 10^3/uL (1.7-8.2); BASOPHILS % (AUTO) 0.4 % (0-2); EOSINOPHILS % (AUTO) 1.4 % (0-6); HEMATOCRIT 38.4 % (37.9-51.0); HEMOGLOBIN 13.3 g/dL (13.5-17.0); MEAN CORPUSCULAR HEMOGLOBIN 33.9 pg (27.0-33.4); MEAN CORPUSCULAR HGB CONC 34.5 g/dL (32.0-36.0); MEAN CORPUSCULAR VOLUME 98 fl (80-97); MONOCYTES % (AUTO) 12.2 % (3-13); PLATELET COUNT 161 10^3/uL (150-450); RED BLOOD COUNT 3.91 10^6/uL (4.35-5.55); RED CELL DISTRIBUTION WIDTH 14.5 % (11.5-14.0); TOTAL CELLS COUNTED % (AUTO) 100 %; WHITE BLOOD COUNT 10.2 10^3/uL (4.0-10.5)
[2017-11-05 05:43] LABS: ANION GAP 7 (5-19); BLOOD UREA NITROGEN 22 mg/dL (7-20); CALCIUM 9.2 mg/dL (8.4-10.2); CARBON DIOXIDE 29 mmol/L (22-30); CHLORIDE 106 mmol/L (98-107); GLUCOSE 89 mg/dL (75-110); POTASSIUM 4.1 mmol/L (3.6-5.0); SODIUM 142.4 mmol/L (137-145)
[2017-11-05] MEDS: HEPARIN SOD (PORCINE) 5,000 UNIT/ML 1 ML SYRINGE SUBCUT SCH ×3 (06:22→21:09)
--- NOTE | 2017-11-05 08:29 | PDOC PROGRESS REPORT ---
Subjective Progress Note for:: 11/05/17 Subjective:: The patient states to feel slightly better. He is resting comfortably in bed. I have help patient sit up and he started coughing with productive sputum. Cultures were sent. Reason For Visit: FALLS,PNEUMONIA Physical Exam Vital Signs: Temp Pulse Resp BP Pulse Ox 97.8 F 65 20 132/56 H 95 11/05/17 03:07 11/05/17 03:07 11/05/17 03:07 11/05/17 03:07 11/05/17 03:07 Pulse Oximeter Continuous Start: 11/02/17 00: 17 Freq: RTQ4 Status: Hold Document 11/02/17 08:00 JDR (Rec: 11/02/17 09:20 JDR [email or web address]) Pulse Oximetry Assessment Equipment Usage Equipment Standby Continuous SpO2 Machine # 0 Additional RT Notes Other no pulse ox monitors avaible. pt on nursing monitor Intake & Output 11/04/17 11/05/17 11/06/17 06:59 06:59 06:59 Intake Total 1316 475 Output Total 1000 730 Balance 316 -255 Weight 61.8 kg 62.6 kg General appearance: PRESENT: mild distress Head exam: PRESENT: atraumatic Eye exam: PRESENT: conjunctival injection Neck exam: PRESENT: carotid bruit Respiratory exam: PRESENT: rhonchi, wheezes Cardiovascular exam: PRESENT: RRR, +S1, +S2 Pulses: PRESENT: +1 pedal pulses bilateral GI/Abdominal exam: PRESENT: normal bowel sounds, soft Extremities exam: PRESENT: full ROM Musculoskeletal exam: PRESENT: other Neurological exam: PRESENT: alert, awake Results Laboratory Results: 11/05/17 05:19 11/05/17 05:19 11/05/17 11/05/17 05:19 05:19 WBC 10.2 RBC 3.91 L Hgb 13.3 L Hct 38.4 MCV 98 H MCH 33.9 H MCHC 34.5 RDW 14.5 H Plt Count 161 Seg Neutrophils % 76.0 Lymphocytes % 10.0 L Monocytes % 12.2 Eosinophils % 1.4 Basophils % 0.4 Absolute Neutrophils 7.8 Absolute Lymphocytes 1.0 Absolute Monocytes 1.3 Absolute Eosinophils 0.1 Absolute Basophils 0.0 Sodium 142.4 Potassium 4.1 Chloride 106 Carbon Dioxide 29 Anion Gap 7 BUN 22 H Creatinine 0.87 Est GFR ( Amer) > 60 Est GFR (Non-Af Amer) > 60 Glucose 89 Calcium 9.2 Impressions: Chest X-Ray 11/01/17 22:15 IMPRESSION: No acute cardiopulmonary findings. 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 Will start with nebulization treatments. (3) Dehydration Is this a current diagnosis for this admission?: Yes Plan: We will continue IV fluids and add and increase p.o. intake (4) Polyneuropathy Is this a current diagnosis for this admission?: Yes Plan: Continue with prednisone (5) Non Hodgkin's lymphoma Qualifiers: Non-Hodgkin lymphoma type: unspecified type Is this a current diagnosis for this admission?: Yes Plan: Continue current treatment
[2017-11-05] MEDS ORDERED: METHYLPREDNISOLONE INJ 40 MG/1 ML SDV IV SCH (08:30)
--- NOTE | 2017-11-05 08:53 | RADIOLOGY REPORT (SQ) ---
EXAM DESCRIPTION: CHEST 2 VIEWS COMPLETED DATE/TIME: 11/05/2017 8:31 am REASON FOR STUDY: Possible pneumonia COMPARISON: CT chest 03/22/2016 AP chest 11/01/2017, 12/21/2013 EXAM PARAMETERS: NUMBER OF VIEWS: two views TECHNIQUE: Digital Frontal and Lateral radiographic views of the chest acquired. RADIATION DOSE: NA LIMITATIONS: none FINDINGS: LUNGS AND PLEURA: Trace bilateral pleural effusions are present. Lungs are hyperinflated from obstructive disease with perihilar bronchiectasis. No focal consolidati on. No pneumothorax. MEDIASTINUM AND HILAR STRUCTURES: No masses or contour abnormalities. HEART AND VASCULAR STRUCTURES: Heart normal size. No evidence for failure. BONES: Osteoporotic HARDWARE: None in the chest. OTHER: No other significant finding. IMPRESSION: Obstructive lung disease with bronchiectasis in the perihilar regions. Trace bilateral pleural effusions TECHNICAL DOCUMENTATION: JOB ID: [id number] [employer]- All Rights Reserved Reading location - IP/workstation name: [email or web address]
[2017-11-05] MEDS: CEFTRIAXONE SODIUM 1,000 MG in DEXTROSE 5%-WATER 50 ML IV SCH (09:16)
[2017-11-05] MEDS: LEVOFLOXACIN 750 MG TABLET PO SCH (09:17)
[2017-11-05] MEDS: METHYLPREDNISOLONE INJ 125 MG/2 ML SDV IV SCH ×3 (09:17→21:09)
[2017-11-05] MEDS: ASPIRIN 81 MG TABLET, ENT COATED PO SCH (09:17)
[2017-11-05] MEDS: CALCIUM CARBONATE 500 MG TABLET PO SCH (09:18)
[2017-11-05] MEDS: MULTIVITAMIN TABLET PO SCH (09:18)
[2017-11-05] MEDS: SODIUM CHLORIDE NASAL SPRAY 44 ML NASL SCH ×4 (09:21→21:11)
[2017-11-05] MEDS: FLUTICASONE NASAL SPRAY 50 MCG/SPRY 120 SPRAY/16 GM NASL SCH ×2 (09:22→21:12)
[2017-11-05] MEDS ORDERED: CEFTRIAXONE 1 GM/D5W RTU 50 ML IV SCH (10:00)
[2017-11-05] MEDS: IPRATROPIUM/ALBUTEROL 0.5-2.5 MG/3 ML AMPUL NEB SCH ×3 (12:21→20:12)
[2017-11-06] MEDS: METHYLPREDNISOLONE INJ 125 MG/2 ML SDV IV SCH (03:30)
[2017-11-06] MEDS: HEPARIN SOD (PORCINE) 5,000 UNIT/ML 1 ML SYRINGE SUBCUT SCH ×3 (06:04→21:06)
[2017-11-06 07:20] LABS: HEMATOCRIT 35.7 % (37.9-51.0); HEMOGLOBIN 12.6 g/dL (13.5-17.0); MEAN CORPUSCULAR HEMOGLOBIN 35.5 pg (27.0-33.4); MEAN CORPUSCULAR HGB CONC 35.4 g/dL (32.0-36.0); MEAN CORPUSCULAR VOLUME 100 fl (80-97); PLATELET COUNT 172 10^3/uL (150-450); RED BLOOD COUNT 3.55 10^6/uL (4.35-5.55); RED CELL DISTRIBUTION WIDTH 14.1 % (11.5-14.0); WHITE BLOOD COUNT 10.6 10^3/uL (4.0-10.5)
[2017-11-06 07:44] LABS: ALANINE AMINOTRANSFERASE 36 U/L (21-72); ALBUMIN 3.3 g/dL (3.5-5.0); ALKALINE PHOSPHATASE 81 U/L (38-126); ANION GAP 12 (5-19); ASPARTATE AMINO TRANSFERASE 22 U/L (17-59); BILIRUBIN,DIRECT 0.2 mg/dL (0.0-0.4); BILIRUBIN,TOTAL 0.4 mg/dL (0.2-1.3); BLOOD UREA NITROGEN 27 mg/dL (7-20); CALCIUM 9.4 mg/dL (8.4-10.2); CARBON DIOXIDE 23 mmol/L (22-30); CHLORIDE 105 mmol/L (98-107); GLUCOSE 136 mg/dL (75-110); SODIUM 140.1 mmol/L (137-145); TOTAL PROTEIN 5.8 g/dL (6.3-8.2)
[2017-11-06 07:54] LABS: ABSOLUTE LYMPHOCYTES# (MANUAL) 0.5 10^3/uL (0.5-4.7); ABSOLUTE NEUTROPHILS# (MANUAL) 10.1 10^3/uL (1.7-8.2); BASOPHILS % (MANUAL) 0 % (0-2); EOSINOPHILS % (MANUAL) 0 % (0-6); LYMPHOCYTES % (MANUAL) 5 % (13-45); MONOCYTES % (MANUAL) 0 % (3-13); SEGMENTED NEUTROPHILS % (MAN) 95 % (42-78); TOTAL CELLS COUNTED 100
[2017-11-06 07:56] LABS: HYPOCHROMASIA SLIGHT; POLYCHROMASIA SLIGHT; TOXIC GRANULATION SLIGHT
[2017-11-06 07:57] LABS: PLATELET COMMENT ADEQUATE
--- NOTE | 2017-11-06 08:33 | PDOC PROGRESS REPORT ---
Subjective Progress Note for:: 11/06/17 Subjective:: The patient states to feel better. He has started complaining about his diet. He still has some mild cough. Sputum cultures were sent. Because the need to get out of bed to recliner and ambulate with walker Reason For Visit: FALLS,PNEUMONIA Physical Exam Vital Signs: Temp Pulse Resp BP Pulse Ox 97.7 F 76 16 135/71 H 98 11/06/17 07:50 11/06/17 07:50 11/06/17 07:50 11/06/17 07:50 11/06/17 07:50 Pulse Oximeter Continuous Start: 11/02/17 00: 17 Freq: RTQ4 Status: Hold Document 11/02/17 08:00 JDR (Rec: 11/02/17 09:20 JDR [email or web address]) Pulse Oximetry Assessment Equipment Usage Equipment Standby Continuous SpO2 Machine # 0 Additional RT Notes Other no pulse ox monitors avaible. pt on nursing monitor Intake & Output 11/05/17 11/06/17 11/07/17 06:59 06:59 06:59 Intake Total 475 1598 Output Total 730 175 Balance -255 1423 Weight 62.6 kg 63 kg General appearance: PRESENT: mild distress Head exam: PRESENT: atraumatic Eye exam: PRESENT: conjunctiva pink Neck exam: PRESENT: carotid bruit Respiratory exam: PRESENT: rhonchi. ABSENT: wheezes Cardiovascular exam: PRESENT: RRR, +S1, +S2 Pulses: PRESENT: +1 pedal pulses bilateral GI/Abdominal exam: PRESENT: normal bowel sounds, soft Extremities exam: PRESENT: tenderness Musculoskeletal exam: PRESENT: tenderness Neurological exam: PRESENT: alert, awake Results Laboratory Results: 11/06/17 06:08 11/06/17 06:08 11/06/17 11/06/17 06:08 06:08 WBC 10.6 H RBC 3.55 L Hgb 12.6 L Hct 35.7 L MCV 100 H MCH 35.5 H MCHC 35.4 RDW 14.1 H Plt Count 172 Seg Neutrophils % Not Reportable Lymphocytes % Not Reportable Monocytes % Not Reportable Eosinophils % Not Reportable Basophils % Not Reportable Absolute Neutrophils Not Reportable Absolute Lymphocytes Not Reportable Absolute Monocytes Not Reportable Absolute Eosinophils Not Reportable Absolute Basophils Not Reportable Sodium 140.1 Potassium 4.0 Chloride 105 Carbon Dioxide 23 Anion Gap 12 BUN 27 H Creatinine 0.90 Est GFR ( Amer) > 60 Est GFR (Non-Af Amer) > 60 Glucose 136 H Calcium 9.4 Total Bilirubin 0.4 AST 22 ALT 36 Alkaline Phosphatase 81 Total Protein 5.8 L Albumin 3.3 L Impressions: Chest X-Ray 11/05/17 00:00 IMPRESSION: Obstructive lung disease with bronchiectasis in the perihilar regions. Trace bilateral pleural effusions Assessment & Plan - Diagnosis (1) Falls Is this a current diagnosis for this admission?: Yes (2) Pneumonia Qualifiers: Pneumonia type: due to unspecified organism Laterality: right Lung location: lower lobe of lung Qualified Code(s): J18.1 - Lobar pneumonia, unspecified organism Is this a current diagnosis for this admission?: Yes Plan: We will continue with IV antibiotics and add Rocephin. Will start with nebulization treatments. (3) Dehydration Is this a current diagnosis for this admission?: Yes (4) Polyneuropathy Is this a current diagnosis for this admission?: Yes Plan: Continue with prednisone (5) Non Hodgkin's lymphoma Qualifiers: Non-Hodgkin lymphoma type: unspecified type Is this a current diagnosis for this admission?: Yes Plan: Continue current treatment
[2017-11-06] MEDS: IPRATROPIUM/ALBUTEROL 0.5-2.5 MG/3 ML AMPUL NEB SCH ×4 (08:35→20:21)
[2017-11-06] MEDS: SODIUM CHLORIDE NASAL SPRAY 44 ML NASL SCH ×4 (10:04→21:06)
[2017-11-06] MEDS: ASPIRIN 81 MG TABLET, ENT COATED PO SCH (10:05)
[2017-11-06] MEDS: MULTIVITAMIN TABLET PO SCH (10:05)
[2017-11-06] MEDS: FLUTICASONE NASAL SPRAY 50 MCG/SPRY 120 SPRAY/16 GM NASL SCH ×2 (10:05→21:06)
[2017-11-06] MEDS: CALCIUM CARBONATE 500 MG TABLET PO SCH (10:05)
[2017-11-06] MEDS: PREDNISONE 20 MG TABLET PO SCH ×2 (10:05→18:11)
[2017-11-06] MEDS: LEVOFLOXACIN 750 MG TABLET PO SCH (10:05)
[2017-11-06] MEDS: CEFTRIAXONE SODIUM 1,000 MG in DEXTROSE 5%-WATER 50 ML IV SCH (10:06)
[2017-11-06 11:13] LABS: APPEARANCE,URINE SLIGHTLY-CLOUDY; BILIRUBIN,URINE NEGATIVE (NEGATIVE); COLOR,URINE YELLOW; GLUCOSE, URINE NEGATIVE (NEGATIVE); KETONES,URINE NEGATIVE (NEGATIVE); LEUKOCYTE ESTERASE,URINE NEGATIVE (NEGATIVE); NITRITE,URINE NEGATIVE (NEGATIVE); PROTEIN,URINE NEGATIVE (NEGATIVE); URINE SPECIFIC GRAVITY 1.021; UROBILINOGEN,URINE NEGATIVE mg/dL (<2.0)
[2017-11-07] MEDS: HEPARIN SOD (PORCINE) 5,000 UNIT/ML 1 ML SYRINGE SUBCUT SCH (06:28)
[2017-11-07] MEDS ORDERED: NA PHOS,M-B/NA PHOS,DI-BA (ADULT) 133 ML ENEMA PR ONE (07:41)
[2017-11-07] MEDS ORDERED: MAGNESIUM CITRATE 296 ML BOTTLE PO ONE (07:42)
[2017-11-07] MEDS ORDERED: PREDNISONE 20 MG TABLET PO SCH (07:42)
--- NOTE | 2017-11-07 07:59 | PDOC DISCHARGE SUMMARY ---
General - Admit/Disc Date/PCP Admission Date/Primary Care Provider: 11/02/17 00:17 HEMAL BHATIA, Discharge Date: 11/07/17 - Discharge Diagnosis (1) Falls Is this a current diagnosis for this admission?: Yes (2) Pneumonia Is this a current diagnosis for this admission?: Yes Summary: We will continue with Levaquin 500 mg daily for another 5 days and will wean off the prednisone slowly (3) Dehydration Is this a current diagnosis for this admission?: Yes (4) Polyneuropathy Is this a current diagnosis for this admission?: Yes Summary: Continue current medications as an outpatient (5) Non Hodgkin's lymphoma Is this a current diagnosis for this admission?: Yes Summary: Continue the same treatment - Additional Information Resuscitation Status: Full Code Discharge Diet: Regular Discharge Activity: Activity As Tolerated Prescriptions: Levofloxacin [Levaquin 750 mg Tablet] 500 mg PO DAILY #5 tablet Prednisone [Deltasone 20 mg Tablet] 10 mg PO BID #60 tablet Home Medications: Aspirin [Ecotrin 81 mg EC Tablet] 81 mg PO DAILY 06/10/17 Prednisone [Deltasone 10 mg Tablet] 10 mg PO DAILY 06/10/17 Calcium Carbonate [Os-Eloy 500 mg Tablet (Oyster-Shell)] 500 mg PO DAILY Multivitamin [Tab-A-Marcelo (Multiple Vitamin) Tablet] 1 tab PO DAILY 11/02/17 Levofloxacin [Levaquin 750 mg Tablet] 500 mg PO DAILY #5 tablet 11/07/17 Prednisone [Deltasone 20 mg Tablet] 10 mg PO BID #60 tablet 11/07/17 History of Present Illness History of Present Illness: JOSIE TRUONG is a 82 year old male Hospital Course Hospital Course: The patient did well after the hospitalization he was started on IV antibiotics. He continued to have cough and shortness of breath. He appeared to be wheezing. Once he was started on prednisone his symptoms have improved. He continued to improve over the next several days and was discharged home on p.o. prednisone and Levaquin Physical Exam Vital Signs: Temp Pulse Resp BP Pulse Ox 97.2 F 76 17 126/65 H 96 11/07/17 07:48 11/07/17 07:48 11/07/17 07:48 11/07/17 07:48 11/07/17 07:48 Pulse Oximeter Continuous Start: 11/02/17 00: 17 Freq: RTQ4 Status: Hold Document 11/02/17 08:00 J (Rec: 11/02/17 09:20 JDR [email or web address]) Pulse Oximetry Assessment Equipment Usage Equipment Standby Continuous SpO2 Machine # 0 Additional RT Notes Other no pulse ox monitors avaible. pt on nursing monitor Intake & Output 11/06/17 11/07/17 11/08/17 06:59 06:59 06:59 Intake Total 1598 850 Output Total 175 650 Balance 1423 200 Weight 63 kg 62.6 kg General appearance: PRESENT: no acute distress Head exam: PRESENT: atraumatic Eye exam: PRESENT: conjunctiva pink Neck exam: ABSENT: carotid bruit Respiratory exam: PRESENT: rhonchi. ABSENT: wheezes Cardiovascular exam: PRESENT: RRR, +S1, +S2 Pulses: PRESENT: +1 pedal pulses bilateral GI/Abdominal exam: PRESENT: normal bowel sounds, soft Extremities exam: PRESENT: full ROM Musculoskeletal exam: PRESENT: ambulatory Neurological exam: PRESENT: alert, awake Psychiatric exam: PRESENT: anxious Results Laboratory Results: 11/06/17 06:08 11/06/17 06:08 11/06/17 10:39 Urine Color YELLOW Urine Appearance SLIGHTLY-CLOUDY Urine pH 5.0 Ur Specific [place] 1.021 Urine Protein NEGATIVE Urine Glucose (UA) NEGATIVE Urine Ketones NEGATIVE Urine Blood NEGATIVE Urine Nitrite NEGATIVE Ur Leukocyte Esterase NEGATIVE Urine WBC (Auto) 1 Urine RBC (Auto) 1 Impressions: Chest X-Ray 11/05/17 00:00 IMPRESSION: Obstructive lung disease with bronchiectasis in the perihilar regions. Trace bilateral pleural effusions Qualifiers - * PATIENT BEING DISCHARGED WITH ANY OF THE FOLLOWING DIAGNOSIS: No
[2017-11-07] MEDS: LEVOFLOXACIN 750 MG TABLET PO SCH (08:33)
[2017-11-07] MEDS: MULTIVITAMIN TABLET PO SCH (08:33)
[2017-11-07] MEDS: ASPIRIN 81 MG TABLET, ENT COATED PO SCH (08:34)
[2017-11-07] MEDS: CALCIUM CARBONATE 500 MG TABLET PO SCH (08:34)
[2017-11-07] MEDS: SODIUM CHLORIDE NASAL SPRAY 44 ML NASL SCH ×2 (08:35→10:24)
[2017-11-07] MEDS: FLUTICASONE NASAL SPRAY 50 MCG/SPRY 120 SPRAY/16 GM NASL SCH (08:35)
[2017-11-07] MEDS: IPRATROPIUM/ALBUTEROL 0.5-2.5 MG/3 ML AMPUL NEB SCH ×2 (08:37→11:54)
[2017-11-07] MEDS: CEFTRIAXONE SODIUM 1,000 MG in DEXTROSE 5%-WATER 50 ML IV SCH (08:41)
[2017-11-07 12:09] VITALS: BP 130/61
== END 2017-11-07 13:58 | disposition home health service (06) | DRG 194 ==
LOC: ER 21:55 → EH 11-02 00:17 → 3S 11-02 04:58
PROVIDERS: ADMIT Internal Medicine; ATTEND Internal Medicine
DX: J18.9 Pneumonia, unspecified organism (principal); C85.90 Non-Hodgkin lymphoma, unspecified, unspecified site; I95.1 Orthostatic hypotension; R09.02 Hypoxemia; E86.0 Dehydration; I10 Essential (primary) hypertension; K21.9 Gastro-esophageal reflux disease without esophagitis; G62.9 Polyneuropathy, unspecified; R42 Dizziness and giddiness; Z79.82 Long term (current) use of aspirin; Z79.52 Long term (current) use of systemic steroids; Z79.899 Other long term (current) drug therapy; Z91.81 History of falling
CPT/HCPCS: 36415; 71045; 71046; 80048; 80053; 81001; 82803; 83605; 83880; 84484; 85025; 85027; 85610; 87040; 87070; 87086; 87205; 93005; 93010; 94640; 94667; 94668; 99285; G8978-GP; G8979-GP; J0456; J0696; J1644; J1956; J2930; J3490; J7030; J7512; J7620

== ENCOUNTER → 2017-12-11 | Outpatient (CLI) | payer MEDICARE, OTHER ==
[2017-12-11 09:13] LABS: HEMATOCRIT 39.8 % (37.9-51.0); HEMOGLOBIN 13.7 g/dL (13.5-17.0); MEAN CORPUSCULAR HEMOGLOBIN 33.8 pg (27.0-33.4); MEAN CORPUSCULAR HGB CONC 34.4 g/dL (32.0-36.0); MEAN CORPUSCULAR VOLUME 98 fl (80-97); PLATELET COUNT 169 10^3/uL (150-450); RED BLOOD COUNT 4.05 10^6/uL (4.35-5.55); RED CELL DISTRIBUTION WIDTH 14.7 % (11.5-14.0); WHITE BLOOD COUNT 9.6 10^3/uL (4.0-10.5)
[2017-12-11 09:37] LABS: ABSOLUTE LYMPHOCYTES# (MANUAL) 2.2 10^3/uL (0.5-4.7); ABSOLUTE MONOCYTES # (MANUAL) 0.7 10^3/uL (0.1-1.4); ABSOLUTE NEUTROPHILS# (MANUAL) 6.7 10^3/uL (1.7-8.2); BASOPHILS % (MANUAL) 0 % (0-2); EOSINOPHILS % (MANUAL) 0 % (0-6); LYMPHOCYTES % (MANUAL) 23 % (13-45); MONOCYTES % (MANUAL) 7 % (3-13); SEGMENTED NEUTROPHILS % (MAN) 70 % (42-78); TOTAL CELLS COUNTED 100
[2017-12-11 09:39] LABS: HYPOCHROMASIA SLIGHT; PLATELET COMMENT ADEQUATE; POLYCHROMASIA SLIGHT; TOXIC GRANULATION SLIGHT
[2017-12-11 09:45] LABS: CHOLESTEROL 148.96 mg/dL (0-200); DIRECT LDL 58 mg/dL (<100); TRIGLYCERIDES 65 mg/dL (<150)
== END ==
LOC: OD 07:28
PROVIDERS: ATTEND Internal Medicine
DX: R35.1 Nocturia (principal); E78.5 Hyperlipidemia, unspecified; R53.83 Other fatigue; K21.9 Gastro-esophageal reflux disease without esophagitis; C85.90 Non-Hodgkin lymphoma, unspecified, unspecified site
CPT/HCPCS: 36415; 80061; 84443; 85025

== ENCOUNTER → 2017-12-23 | Outpatient (CLI) | payer MEDICARE, OTHER ==
[2017-12-23 09:57] LABS: ALANINE AMINOTRANSFERASE 24 U/L (21-72); ALBUMIN 4.1 g/dL (3.5-5.0); ALKALINE PHOSPHATASE 74 U/L (38-126); ANION GAP 12 (5-19); ASPARTATE AMINO TRANSFERASE 21 U/L (17-59); BILIRUBIN,DIRECT 0.3 mg/dL (0.0-0.4); BILIRUBIN,TOTAL 1.4 mg/dL (0.2-1.3); BLOOD UREA NITROGEN 28 mg/dL (7-20); CALCIUM 9.6 mg/dL (8.4-10.2); CARBON DIOXIDE 27 mmol/L (22-30); CHLORIDE 106 mmol/L (98-107); GLUCOSE 78 mg/dL (75-110); POTASSIUM 4.2 mmol/L (3.6-5.0); SODIUM 144.5 mmol/L (137-145); TOTAL PROTEIN 6.4 g/dL (6.3-8.2)
== END ==
LOC: OD 07:54
PROVIDERS: ATTEND Internal Medicine
DX: E78.5 Hyperlipidemia, unspecified (principal); R53.83 Other fatigue; K21.9 Gastro-esophageal reflux disease without esophagitis; R35.1 Nocturia
CPT/HCPCS: 36415; 80053; 84153

== ENCOUNTER 2018-04-24 13:27 | Emergency (ER) | payer MEDICARE, OTHER ==
--- NOTE | 2018-04-24 13:41 | ER Document Report ---
ED Medical Screen (RME) - General Chief Complaint: Fall Injury Stated Complaint: FALL Time Seen by Provider: 04/24/18 13:34 Notes: 83 years old pleasant male slipped and fell hit his head on the back on the floor and sustained a laceration and also sustained a large abrasion over the right below the knee posteriorly. Came with bleeding. TRAVEL OUTSIDE OF THE [place] IN LAST 30 DAYS: No - Related Data Allergies/Adverse Reactions: guaifenesin [From Entex] Allergy (Verified 04/24/18 13:30) phenylephrine HCl [From Entex] Allergy (Verified 04/24/18 13:30) phenylpropanolamine [From Entex] Allergy (Verified 04/24/18 13:30) pseudoephedrine tannate [From Entex] Allergy (Verified 04/24/18 13:30) Past Medical History - Past Medical History Cardiac Medical History: Reports: Hx Hypertension Denies: Hx Pulmonary Embolism Pulmonary Medical History: Reports: Hx Pneumonia Denies: Hx Asthma, Hx Bronchitis, Hx COPD, Hx Respiratory Failure, Hx Sleep Apnea, Hx Tuberculosis Neurological Medical History: Denies: Hx Cerebrovascular Accident, Hx Seizures Endocrine Medical History: Denies: Hx Graves' Disease, Hx Hyperthyroidism, Hx Hypothyroidism Renal/ Medical History: Denies: Hx Benign Prostatic Hyperplasia, Hx End Stage Renal Disease, Hx Kidney Stones, Hx Peritoneal Dialysis Malignancy Medical History: Denies Hx Leukemia, Denies Hx Lung Cancer, Reports Hx Lymphoma, Reports Hx Prostate Cancer GI Medical History: Reports: Hx Gastroesophageal Reflux Disease. Denies: Hx Crohn's Disease, Hx Hiatal Hernia, Hx Irritable Bowel, Hx Liver Failure, Hx Pancreatitis, Hx Ulcer Musculoskeltal Medical History: Denies Hx Arthritis, Denies Hx Fibromyalgia, Denies Hx Muscular Dystrophy Psychiatric Medical History: Denies: Hx Depression Traumatic Medical History: Reports: Hx Fractures - right leg Infectious Medical History: Denies: Hx HIV Past Surgical History: Reports: Hx Tonsillectomy, Hx Urinary Tract Surgery - prostatectomy. Denies: Hx Appendectomy, Hx Bowel Surgery, Hx Cholecystectomy, Hx Colostomy, Hx Coronary Artery Bypass Graft, Hx Gastric Bypass Surgery, Hx Herniorrhaphy, Hx Pacemaker - Immunizations Hx Diphtheria, Pertussis, Tetanus Vaccination: Yes History of Influenza Vaccine for 04/2017 - 09/2017 Season: Unknown Physical Exam - Vital signs Vitals: Temp Pulse Resp BP Pulse Ox 97.9 F 99 16 127/64 H 98 04/24/18 13:32 04/24/18 13:32 04/24/18 13:32 04/24/18 13:32 04/24/18 13:32 Course - Vital Signs Vital signs: Temp Pulse Resp BP Pulse Ox 97.9 F 99 16 127/64 H 98 04/24/18 13:32 04/24/18 13:32 04/24/18 13:32 04/24/18 13:32 04/24/18 13:32 Doctor's Discharge - Discharge Referrals: HEMAL BHATIA MD [Primary Care Provider] - Follow up as needed
--- NOTE | 2018-04-24 14:05 | ER Document Report ---
ED Fall - General Chief Complaint: Fall Injury Stated Complaint: FALL Time Seen by Provider: 04/24/18 13:34 Mode of Arrival: Ambulatory Information source: Patient Notes: 83-year-old male with mild Alzheimer's, hx non hodgekins lymphoma, CIDP ( polyneuropathy) patient of DONTA Tavarez in [place], left the house driving at 9 this morning driving His left the house at 10. He likes to drive around and picker tender things there left on the side of the road. He came home at 1215 his is home and she noticed the bleeding on his head and the back of his right leg. He states he had fallen backwards because he was unsteady when he was in [facility] picking something up because the man was moving. He states he is not or was not dizzy and did not have any chest pain or shortness of breath. He was going to sit down and eat lunch with his because he had gotten [place] food. He does have short term memory problems as he did not know where he was when this occurred, but was trying to find the office and couldn't. He is also distracted when I am talking to him asking for hail clippers, and also states he is not going to tell me all his secrets. No anticoagulants, but 81mg daily ASA. Takes prednisone 10mg daily. Nenita Tavarez found elevated wbc in past 2 months, then it returned to normal. TRAVEL OUTSIDE OF THE [place] IN LAST 30 DAYS: No - Related data Allergies/Adverse Reactions: guaifenesin [From Entex] Allergy (Verified 04/24/18 13:30) phenylephrine HCl [From Entex] Allergy (Verified 04/24/18 13:30) phenylpropanolamine [From Entex] Allergy (Verified 04/24/18 13:30) pseudoephedrine tannate [From Entex] Allergy (Verified 04/24/18 13:30) Past Medical History - General Information source: Patient, Relative - - Social History Smoking Status: Never Smoker Chew tobacco use (# tins/day): No Frequency of alcohol use: None Drug Abuse: None Lives with: Spouse/Significant other Family History: Hypertension Patient has suicidal ideation: No Patient has homicidal ideation: No - Past Medical History Cardiac Medical History: Reports: Hx Hypertension Pulmonary Medical History: Reports: Hx Pneumonia Malignancy Medical History: Reports Hx Lymphoma, Reports Hx Prostate Cancer GI Medical History: Reports: Hx Gastroesophageal Reflux Disease Traumatic Medical History: Reports: Hx Fractures - right leg Past Surgical History: Reports: Hx Tonsillectomy, Hx Urinary Tract Surgery - prostatectomy - Immunizations Hx Diphtheria, Pertussis, Tetanus Vaccination: Yes Hx Pneumococcal Vaccination: 07/07/00 Review of Systems - Review of Systems Constitutional: No symptoms reported EENT: No symptoms reported Cardiovascular: No symptoms reported Respiratory: No symptoms reported Gastrointestinal: No symptoms reported Genitourinary: No symptoms reported Male Genitourinary: No symptoms reported Musculoskeletal: No symptoms reported Skin: See HPI Hematologic/Lymphatic: No symptoms reported Neurological/Psychological: See HPI Physical Exam - Vital signs Vitals: Temp Pulse Resp BP Pulse Ox 97.9 F 99 16 127/64 H 98 04/24/18 13:32 04/24/18 13:32 04/24/18 13:32 04/24/18 13:32 04/24/18 13:32 Interpretation: Normal - General General appearance: Appears well, Alert - HEENT Head: Normocephalic, Ecchymosis, Open wounds - abrasions with the hematomas x 2 posterior occiput. No: Correa's sign, Rac[place]'s eyes Eyes: Normal Conjunctiva: Normal Extraocular movements intact: Yes Pupils: PERRL Tympanic membrane: No: Hemotympanum Neck: Supple - no tender. No: Lymphadenopathy - Respiratory Respiratory status: No respiratory distress Chest status: Nontender Breath sounds: Normal Chest palpation: Normal - Cardiovascular Rhythm: Regular Heart sounds: Normal auscultation Murmur: No - Abdominal Inspection: Normal Distension: No distension Bowel sounds: Normal Tenderness: Nontender Organomegaly: No organomegaly - Back Back: Normal, Nontender. No: Tender - Extremities General upper extremity: Normal inspection, Nontender, Normal color, Normal ROM , Normal temperature General lower extremity: Normal inspection, Nontender, Normal color, Normal ROM , Normal temperature, Normal weight bearing. No: Sayda's sign Calf: Tender - skin tear proximal right lower leg below the knee - Neurological Neuro grossly intact: Yes Cognition: Normal Orientation: AAOx4 [place] Coma Scale Eye Opening: Spontaneous [place] Coma Scale Verbal: Oriented [place] Coma Scale Motor: Obeys Commands [place] Coma Scale Total: 15 Speech: Normal Motor strength normal: LUE, RUE, LLE, RLE Sensory: Normal - Psychological Associated symptoms: Normal affect, Normal mood - Skin Skin Temperature: Warm Skin Moisture: Dry Skin Color: Normal Skin irregularity: other - skin tear 7 x 8 cm posterior proximal right lower leg Notes: see above Course - Re-evaluation Re-evalutation: 04/24/18 15:[address] sierra, call the radiologist and see is needs further testing since he can't exclude a small aneurysm at the origin of the right middle cerebral artery. White count elevated at 21,000 so septic workup and cardiac ( unwitness fall) has been ordered, along with EKG, cxr cpk, cpkmb, troponin, urinalysis, urine culture, states that his mentation is normal for him since the fall. 04/24/18 15:54 dr. raza (radiologist) does think the pt needs further imaging or MR for the above finding. Dr. raza also looked at the MR from 2014. 04/24/18 16:05 Chest x-ray shows some COPD but no infiltrate. Rocephin 1 g IV has been ordered pending the urine and blood cultures. 04/24/18 16:29 Lactic acid is 2.4. I have asked the nurse to The patient so we can get a urine specimen. Cultures are pending. 04/24/18 17:27 excised the paperthin skin from the right lower leg skin tear, surgiscrub cleansed, saline rinse, bacitracin, tegaderm, 4 x 4, coban. Urine is negative. 04/24/18 18:[address] sierra saw the pt. in the room and is aware of all the labwork, imaging. no more antibiotics needed. He says we can send him home with follow up with his primary care provider on friday. - Vital Signs Vital signs: Temp Pulse Resp BP Pulse Ox 97.9 F 99 21 H 133/76 H 95 04/24/18 13:32 04/24/18 13:32 04/24/18 18:01 04/24/18 18:00 04/24/18 18:01 - Laboratory Result Diagrams: 04/24/18 13:11 04/24/18 13:11 Laboratory results interpreted by me: 04/24/18 04/24/18 04/24/18 13:11 13:11 15:44 WBC 21.0 H RBC 3.85 L MCV 102 H MCH 35.3 H RDW 14.7 H Plt Count 147 L Seg Neuts % (Manual) 89 H Lymphocytes % (Manual) 2 L Abs Neuts (Manual) 18.7 H Abs Lymphs (Manual) 0.4 L Abs Monocytes (Manual) 1.9 H Carbon Dioxide 20 L Glucose 125 H Lactic Acid 2.4 H Total Protein 6.2 L - EKG Interpretation by Me EKG shows normal: Sinus rhythm Rate: Normal Rhythm: NSR Additional EKG results interpreted by me: 04/24/18 18:09 QT 432 QTC 486, dr sierra evaluated it also. Discharge - Discharge Clinical Impression: head injury, contusion and abrasion, skin tear right lower leg, left elbow abrasion, alzheimer history Fall Qualifiers: Encounter type: initial encounter Qualified Code(s): W19.XXXA - Unspecified fall, initial encounter Leukocytosis Qualifiers: Leukocytosis type: unspecified Qualified Code(s): D72.829 - Elevated white blood cell count, unspecified Instructions: Abrasions ([facility]), Contusion ([facility]), Head Injury Precautions ([facility]), Skin Tear ([facility]) Additional Instructions: Keep the dressing on until you see your provider on Friday at [facility] in [place] See your provider Friday Return to the emergency room for any worsening of the symptoms No driving this weekend Copy of lab work and imaging given to you and your Tylenol for pain Urine and blood cultures are pending
[2018-04-24 14:24] LABS: HEMOGLOBIN 13.6 g/dL (13.5-17.0); MEAN CORPUSCULAR HEMOGLOBIN 35.3 pg (27.0-33.4); MEAN CORPUSCULAR HGB CONC 34.8 g/dL (32.0-36.0); MEAN CORPUSCULAR VOLUME 102 fl (80-97); PLATELET COUNT 147 10^3/uL (150-450); RED BLOOD COUNT 3.85 10^6/uL (4.35-5.55); RED CELL DISTRIBUTION WIDTH 14.7 % (11.5-14.0)
[2018-04-24] MEDS ORDERED: NORMAL SALINE IV ONE (14:49)
[2018-04-24 14:52] LABS: ALANINE AMINOTRANSFERASE 30 U/L (21-72); ALBUMIN 3.7 g/dL (3.5-5.0); ALKALINE PHOSPHATASE 83 U/L (38-126); ANION GAP 12 (5-19); ASPARTATE AMINO TRANSFERASE 30 U/L (17-59); BILIRUBIN,DIRECT 0.4 mg/dL (0.0-0.4); BILIRUBIN,TOTAL 1.3 mg/dL (0.2-1.3); BLOOD UREA NITROGEN 19 mg/dL (7-20); CALCIUM 9.3 mg/dL (8.4-10.2); CARBON DIOXIDE 20 mmol/L (22-30); CHLORIDE 106 mmol/L (98-107); GLUCOSE 125 mg/dL (75-110); POTASSIUM 4.4 mmol/L (3.6-5.0); SODIUM 137.7 mmol/L (137-145); TOTAL PROTEIN 6.2 g/dL (6.3-8.2)
[2018-04-24 14:54] LABS: ABSOLUTE LYMPHOCYTES# (MANUAL) 0.4 10^3/uL (0.5-4.7); ABSOLUTE MONOCYTES # (MANUAL) 1.9 10^3/uL (0.1-1.4); ABSOLUTE NEUTROPHILS# (MANUAL) 18.7 10^3/uL (1.7-8.2); BASOPHILS % (MANUAL) 0 % (0-2); EOSINOPHILS % (MANUAL) 0 % (0-6); LYMPHOCYTES % (MANUAL) 2 % (13-45); MONOCYTES % (MANUAL) 9 % (3-13); SEGMENTED NEUTROPHILS % (MAN) 89 % (42-78); TOTAL CELLS COUNTED 100
--- NOTE | 2018-04-24 14:55 | RADIOLOGY REPORT (SQ) ---
EXAM DESCRIPTION: CT HEAD WITHOUT COMPLETED DATE/TIME: 04/24/2018 2:06 pm REASON FOR STUDY: Fall head injury neck injury COMPARISON: MR 07/21/2014 TECHNIQUE: Axial images acquired through the brain without intravenous contrast. Images reviewed wi th bone, brain and subdural windows. Additional sagittal and coronal reconstructions were generated. Images stored on PACS. All CT scanners at this facility use dose modulation, iterative reconstruction, and/or weight based d osing when appropriate to reduce radiation dose to as low as reasonably achievable (ALARA). [facility]: Dose Right [facility]: CareDose [facility]: Dose Right [facility]: Teradose 4D [facility]: Smart ShelfFlip RADIATION DOSE: CT Rad equipment meets quality standard of care and radiation dose reduction techniq ues were employed. CTDIvol: 53.2 mGy. DLP: 1044 mGy-cm. mGy. LIMITATIONS: None. FINDINGS: VENTRICLES: Normal size and contour. CEREBRUM: No masses. No hemorrhage. No midline shift. No evidence for acute infarction. Cannot ex clude a small aneurysm at the origin of the right middle cerebral artery. See image 17 series 2. Few areas of low density in the white matter most likely chronic small vessel ischemic changes. CEREBELLUM: No masses. No hemorrhage. No alteration of density. No evidence for acute infarction. EXTRAAXIAL SPACES: No fluid collections. No masses. ORBITS AND GLOBE: No intra- or extraconal masses. Normal contour of globe without masses. CALVARIUM: No fracture. PARANASAL SINUSES: No fluid or mucosal thickening. SOFT TISSUES: No mass or hematoma. OTHER: No other significant finding. IMPRESSION: Chronic microvascular ischemic changes. Cannot exclude a small aneurysm at the origin o f the right middle cerebral artery as described. No acute intracranial imaging findings. EVIDENCE OF ACUTE STROKE: NO. COMMENT: Quality ID # [id number]: Final reports with documentation of one or more dose reduction techniques (e.g., Automated exposure control, adjustment of the mA and/or kV according to patient size, use of iterative reconstruction technique) TECHNICAL DOCUMENTATION: JOB ID: [id number] [employer]- All Rights Reserved Reading location - IP/workstation name: [email or web address]
[2018-04-24 14:56] LABS: ANISOCYTOSIS SLIGHT; OVALOCYTES 1+; PLATELET COMMENT DECREASED; POIKILOCYTOSIS 1+
--- NOTE | 2018-04-24 14:57 | RADIOLOGY REPORT (SQ) ---
EXAM DESCRIPTION: CT CERVICAL SPINE WITHOUT COMPLETED DATE/TIME: 04/24/2018 2:06 pm REASON FOR STUDY: Fall head injury neck injury COMPARISON: None. TECHNIQUE: Axial images acquired through the cervical spine without intravenous contrast. Images re viewed with lung, soft tissue and bone windows. Reconstructed coronal and sagittal MPR images review ed. Images stored on PACS. All CT scanners at this facility use dose modulation, iterative reconstruction, and/or weight based d osing when appropriate to reduce radiation dose to as low as reasonably achievable (ALARA). [facility]: Dose Right [facility]: CareDose [facility]: Dose Right [facility]: Teradose 4D [facility]: Smart Technologies RADIATION DOSE: CT Rad equipment meets quality standard of care and radiation dose reduction techniq ues were employed. CTDIvol: 11.6 mGy. DLP: 307 mGy-cm. mGy. LIMITATIONS: None. FINDINGS: ALIGNMENT: Anatomic. MINERALIZATION: Osteopenia. VERTEBRAL BODIES: No fractures or dislocation. DISCS: Disc spaces are narrowed at C4-5 and C5-6. Small marginal osteophytes are present. FACETS, LATERAL MASSES, POSTERIOR ELEMENTS: Hypertrophic facet changes in the upper to mid cervical s pine on the right more than left. HARDWARE: None in the spine. VISUALIZED RIBS: No fractures. LUNG APICES AND SOFT TISSUES: No significant or acute findings. OTHER: No other significant finding. IMPRESSION: Degenerative disc disease. Facet arthropathy. Mild spondylosis. No acute findings. TECHNICAL DOCUMENTATION: JOB ID: [id number] Quality ID # [id number]: Final reports with documentation of one or more dose reduction techniques (e.g., Au tomated exposure control, adjustment of the mA and/or kV according to patient size, use of iterative reconstruction technique) 2010 [employer]- All Rights Reserved Reading location - IP/workstation name: [email or web address]
--- NOTE | 2018-04-24 15:41 | RADIOLOGY REPORT (SQ) ---
EXAM DESCRIPTION: CHEST SINGLE VIEW COMPLETED DATE/TIME: 04/24/2018 3:12 pm REASON FOR STUDY: fall COMPARISON: 11/05/2017 NUMBER OF VIEWS: One view. TECHNIQUE: Single frontal radiographic view of the chest acquired. LIMITATIONS: None. FINDINGS: LUNGS AND PLEURA: No opacities, masses or pneumothorax. No pleural effusion. Attenuated bl ood vessels and flattened ritu-diaphragms. MEDIASTINUM AND HILAR STRUCTURES: No masses. Contour normal. HEART AND VASCULAR STRUCTURES: Heart normal in size. Normal vasculature. BONES: No acute findings. HARDWARE: None in the chest. OTHER: No other significant finding. IMPRESSION: COPD. NO ACUTE RADIOGRAPHIC FINDING IN THE CHEST. TECHNICAL DOCUMENTATION: JOB ID: [id number] 1920 [employer]- All Rights Reserved Reading location - IP/workstation name: [email or web address]
[2018-04-24] MEDS ORDERED: RINGERS SOLUTION,LACTATED 1,000 ML IV ONE (15:49)
[2018-04-24] MEDS ORDERED: CEFTRIAXONE 1 GM/D5W RTU 50 ML IV ONE (16:01)
[2018-04-24] MEDS ORDERED: CEFTRIAXONE INJ 1000 MG VIAL IV ONE (16:45)
[2018-04-24 16:57] LABS: APPEARANCE,URINE CLEAR; BILIRUBIN,URINE NEGATIVE (NEGATIVE); COLOR,URINE YELLOW; GLUCOSE, URINE NEGATIVE (NEGATIVE); KETONES,URINE NEGATIVE (NEGATIVE); LEUKOCYTE ESTERASE,URINE NEGATIVE (NEGATIVE); NITRITE,URINE NEGATIVE (NEGATIVE); PROTEIN,URINE NEGATIVE (NEGATIVE); URINE SPECIFIC GRAVITY 1.011; UROBILINOGEN,URINE NEGATIVE mg/dL (<2.0)
[2018-04-24] MEDS ORDERED: CEFTRIAXONE 1 GM/D5W RTU 1 GM/50 ML RTUPB IV ONE (17:00)
[2018-04-24 18:14] VITALS: BP 133/76
--- NOTE | 2018-04-24 19:26 | EKG REPORT ---
SEVERITY:- ABNORMAL ECG - SINUS RHYTHM ATRIAL PREMATURE COMPLEX LEFT AXIS DEVIATION ANTERIOR INFARCT, OLD BORDERLINE PROLONGED QT INTERVAL : Confirmed by: Shaggy Sewell MD 24-Apr-2018 19:25:09
== END 2018-04-24 18:50 | disposition home or self-care (01) ==
LOC: ER 13:27
DX: S81.811A Laceration without foreign body, right lower leg, initial encounter (principal); S00.03XA Contusion of scalp, initial encounter; S50.312A Abrasion of left elbow, initial encounter; W19.XXXA Unspecified fall, initial encounter; G30.9 Alzheimer's disease, unspecified; F02.80 Dementia in other diseases classified elsewhere, unspecified severity, without behavioral disturbance, psychotic disturbance, mood disturbance, and anxiety; D72.829 Elevated white blood cell count, unspecified; I10 Essential (primary) hypertension; J44.9 Chronic obstructive pulmonary disease, unspecified; G61.81 Chronic inflammatory demyelinating polyneuritis; Z79.52 Long term (current) use of systemic steroids; Z79.82 Long term (current) use of aspirin; Z85.72 Personal history of non-Hodgkin lymphomas; Z88.8 Allergy status to other drugs, medicaments and biological substances
CPT/HCPCS: 93005; 99284; 96361; 96365; 36415; 87040; 87086; 82553; 82550; 85025; 80053; 81001; 84484; 83605; 71045; 70450; 72125; 93010; J7120; J0696

== ENCOUNTER → 2018-05-13 | Outpatient (CLI) | payer MEDICARE, OTHER ==
--- NOTE | 2018-05-14 08:13 | XCELERA REPORT ---
[address] [address] Lower Extremity Venous Evaluation Procedure: A bilateral duplex scan of the lower extremity veins was performed. The evaluation included responses to compression and other maneuvers with patient in the supine and standing positions to assess venous insufficiency. Right Sided Venous Evaluation Deep venous system evaluatiion shows patent veins with no obstruction or significant reflux identified. Sapheno Femoral junction: no reflux. Femoral vein reflux: no reflux. Greater Saphenous vein, Proximal thigh: reflux: no reflux. Greater Saphenous vein, Distal thigh: reflux: no reflux. Greater Saphenous vein, Proximal below knee: reflux: no reflux. No significant Perforators identified. Left Sided Venous Evaluation Deep venous system evaluatiion shows patent veins with no obstruction, very limited area of significant reflux identified. In the Femoral vein Sapheno Femoral junction: no reflux. Femoral vein reflux: 1.5 second reflux. Greater Saphenous vein, Proximal thigh: reflux: no reflux. Greater Saphenous vein, Distal thigh: reflux: no reflux. Greater Saphenous vein, Proximal below knee: reflux: no reflux. No significant Perforators identified. Interpretation Summary No duplex evidence of DVT or obstruction in the bilateral lower extremities. Very limited area of deep reflux noted in the left Femoral vein. Name: JOSIE TRUONG Age: 83 yrs Gender: Male : 1935 Patient Status: Outpatient Patient Location: Study Date: 05/13/2018 09:58 AM Reason For Study: ULCER Ordering Physician: BERTHA MENDIOLA Performed By: Desmond Eldridge : BERTHA MENDIOLA > Sidney Light
--- NOTE | 2018-05-14 08:16 | XCELERA REPORT ---
[address] [address] Lower Extremity Arterial Evaluation Name: JOSIE TRUONG Age: 83 yrs Gender: Male : 1935 Patient Status: Outpatient Patient Location: Study Date: 05/13/2018 09:32 AM Procedure: A color flow and duplex scan of the lower extremity arteries was performed bilaterally with velocity and waveform anaylsis. Reason For Study: ULCER Ordering Physician: BERTHA MENDIOLA Performed By: Desmond Eldridge Measurements and Calculations Right Left PLASTICS PROCESS HAND PSV 69.0 97.4 cm/sec Prox PFA PSV -74.2 -63.9 cm/sec Prox Pop A PSV 44.6 40.4 cm/sec Dist COMPA PSV -48.1 56.6 cm/sec Dist SCREW MACHINE OPERATOR SWISS TYPE PSV 58.1 209.9 cm/sec Geraldo Pedis PSV 21.4 -16.7 cm/sec Right Side Arterial Evaluation Normal velocity and triphasic waveforms noted from the Common Femoral artery to the infrageniculate vessels. Retrograde flow in the Dorsalis Pedis. 0-19% stenosis at the Dorsalis Pedis. Ankle Brachial index not obtained due to inability to tolerate .. Left Side Arterial Evaluation Normal velocity and triphasic waveforms noted from the Common Femoral artery to the infrageniculate vessels. Biphasic , diminished velocity flow in the Dorsalis Pedis. 20-49 % stenosis at the Dorsalis Pedis. Ankle Brachial index not obtained due to inability to tolerate .. Interpretation Summary Mild hemodynamically significant lesions in the bilateral lower extremities, on duplex imaging, at rest. : BERTHA MENDIOLA > Sidney Light
== END ==
LOC: SP 09:12
PROVIDERS: ATTEND Nurse Practitioner
DX: L97.212 Non-pressure chronic ulcer of right calf with fat layer exposed (principal)
CPT/HCPCS: 93925; 93970

== ENCOUNTER 2018-08-25 17:22 | Emergency (ER) | payer MEDICARE, OTHER ==
--- NOTE | 2018-08-25 18:17 | ER Document Report ---
ED Fall - General Stated Complaint: FALL/BACK PAIN Time Seen by Provider: 08/25/18 18:17 Primary Care Provider: BERTHA MENDIOLA [employer] [ALLIED HEALTH PROFESSIONAL] - Follow up as needed Mode of Arrival: Medic Information source: Patient, Relative Notes: HISTORY OF PRESENT ILLNESS: Patient is an 83-year-old male with a past medical history of dementia, hypertension, lymphoma, and recurrent infections who presents with fall of unknown etiology earlier today. Patient is unable to give information, therefore his at bedside is the primary source. She reports the patient was in the bathroom urinating, she turned around the corner and heard him fall, is unsure why he fell and the patient cannot verbalize a reason. Currently he denies any symptoms, denies pain. Family reports the patient has had several frequent falls over the last 6 months and has been seen by several physicians including neurology and an appointment with oncology tomorrow. They deny recent fevers or chills, no cough congestion or other recent illness. Location: Global Onset: Sudden Provocation: Unknown Quality: Weakness, fall Radiation: None Severity: Mild to moderate Timing: Intermittent and frequent REVIEW OF SYSTEMS: CONSTITUTIONAL : Denies fever or chills, no sweats. Denies recent illness. EENT: Denies eye, ear, throat, or mouth pain or symptoms. Denies nasal or sinus congestion. CARDIOVASCULAR: Denies chest pain. RESPIRATORY: Denies cough, cold, or chest congestion. Denies shortness of breath, difficulty breathing, or wheezing. GASTROINTESTINAL: Denies abdominal pain. Denies nausea, vomiting, or diarrhea. Denies constipation. GENITOURINARY: Denies difficulty urinating, painful urination, burning, frequency, or blood in urine. MUSCULOSKELETAL: Denies neck or back pain or joint pain or swelling. SKIN: Denies rash or skin lesions. HEMATOLOGIC : Denies easy bruising or bleeding. LYMPHATIC: Denies swollen, enlarged glands. NEUROLOGICAL: Denies altered mental status or loss of consciousness. Denies headache. Denies weakness or paralysis or loss of use of either side. Denies problems with gait or speech. Denies sensory or motor loss. PSYCHIATRIC: Denies anxiety or stress or depression. All other systems reviewed and negative. PHYSICAL EXAMINATION: GENERAL: Frail-appearing and in no acute distress. HEAD: Atraumatic, normocephalic. No scalp deformity, depression, or crepitance. EYES: Pupils are 2mm and equal/round/reactive to light, extraocular movements intact, sclera anicteric, conjunctiva are normal. ENT: Nares patent bilaterally, oropharynx clear without exudates or palatal petechia. Moist mucous membranes. No tonsil hypertrophy. NECK: Normal range of motion, supple without lymphadenopathy. LUNGS: Breath sounds present, equal, and clear to auscultation bilaterally. No wheezes, rales, or rhonchi. HEART: Regular rate and rhythm without murmurs, rubs, or gallops. 2+ peripheral pulses. Normal capillary refill. ABDOMEN: Soft, nontender, nondistended. Normoactive bowel sounds. No guarding, no rebound. No masses appreciated. BACK: Normal contour, no midline tenderness. Rectal exam deferred. GENITAL: Deferred. EXTREMITIES: Normal range of motion, no pitting or edema. No cyanosis. NEUROLOGICAL: No focal neurological deficits. Moves all extremities spontaneously and on command. PSYCH: Normal mood, normal affect. No suicidal thoughts/ideations. No homocidal thoughts/ideations. No hallucinations. SKIN: Warm, dry, normal turgor, no rashes or lesions noted. ASSESSMENT AND PLAN: This patient is a 83-year-old male who presents with recurrent fall. Most likely represents UTI versus malnutrition versus muscle wasting versus comp occasions from dementia; much less likely etiology includes cardiac versus stroke versus normal pressure hydrocephalus. 1. Will obtain labs, urine, CT head, and reassess. 2. Will consider admission for likely placement into an assisted living facility if patient meets admission criteria. TRAVEL OUTSIDE OF THE [place] IN LAST 30 DAYS: No - Related data Allergies/Adverse Reactions: guaifenesin [From Entex] Allergy (Verified 04/24/18 13:30) phenylephrine HCl [From Entex] Allergy (Verified 04/24/18 13:30) phenylpropanolamine [From Entex] Allergy (Verified 04/24/18 13:30) pseudoephedrine tannate [From Entex] Allergy (Verified 04/24/18 13:30) Past Medical History - General Information source: Relative Cannot obtain history due to: Dementia - Social History Smoking Status: Former Smoker Chew tobacco use (# tins/day): No Frequency of alcohol use: None Drug Abuse: None Lives with: Family Family History: Reviewed & Not Pertinent, Hypertension Patient has suicidal ideation: No Patient has homicidal ideation: No - Past Medical History Cardiac Medical History: Reports: Hx Hypertension Denies: Hx Pulmonary Embolism Pulmonary Medical History: Reports: Hx Pneumonia Denies: Hx Asthma, Hx Bronchitis, Hx COPD, Hx Respiratory Failure, Hx Sleep Apnea, Hx Tuberculosis EENT Medical History: Reports: None Neurological Medical History: Reports: None. Denies: Hx Cerebrovascular Accident, Hx Seizures Endocrine Medical History: Reports: None. Denies: Hx Graves' Disease, Hx Hyp erthyroidism, Hx Hypothyroidism Renal/ Medical History: Reports: None. Denies: Hx Benign Prostatic Hyperplasia, Hx End Stage Renal Disease, Hx Kidney Stones, Hx Peritoneal Dialysis Malignancy Medical History: Denies Hx Leukemia, Denies Hx Lung Cancer, Reports Hx Lymphoma, Reports Hx Prostate Cancer GI Medical History: Reports: Hx Gastroesophageal Reflux Disease. Denies: Hx Crohn's Disease, Hx Hiatal Hernia, Hx Irritable Bowel, Hx Liver Failure, Hx Pancreatitis, Hx Ulcer Musculoskeletal Medical History: Reports None, Denies Hx Arthritis, Denies Hx Fibromyalgia, Denies Hx Muscular Dystrophy Skin Medical History: Reports None Psychiatric Medical History: Reports: None Denies: Hx Depression Traumatic Medical History: Reports: Hx Fractures - right leg Infectious Medical History: Reports: None. Denies: Hx HIV Past Surgical History: Reports: Hx Tonsillectomy, Hx Urinary Tract Surgery - prostatectomy. Denies: Hx Appendectomy, Hx Bowel Surgery, Hx Cholecystectomy, Hx Colostomy, Hx Coronary Artery Bypass Graft, Hx Gastric Bypass Surgery, Hx Herniorrhaphy, Hx Pacemaker - Immunizations Immunizations up to date: Yes Hx Diphtheria, Pertussis, Tetanus Vaccination: Yes History of Influenza Vaccine for 04/2017 - 09/2017 Season: Unknown Hx Pneumococcal Vaccination: 07/07/00 Physical Exam - Vital signs Vitals: Resp Pulse Ox 16 96 08/25/18 17:34 08/25/18 17:34 Course - Re-evaluation Re-evalutation: 08/25/18 22:34 Labs are normal, including negative cardiac enzymes and urinalysis. CT scan of the head and neck are normal. Unclear etiology of the patient's symptoms, however most likely etiology is chronic malnutrition and muscle wasting. Patient will be discharged home with return precautions and instructions to follow-up with his primary physician to obtain home health with physical therapy . The patient and his both voiced understanding and agreeing with the plan. - Vital Signs Vital signs: Temp Pulse Resp BP Pulse Ox 20 158/100 H 97 08/25/18 20:15 08/25/18 20:15 08/25/18 20:15 - Laboratory Result Diagrams: 08/25/18 19:34 08/25/18 20:15 Laboratory results interpreted by me: 08/25/18 08/25/18 08/25/18 19:34 20:15 20:15 WBC 10.8 H RBC 3.98 L MCV 99 H MCH 34.7 H RDW 14.6 H Plt Count 141 L Seg Neutrophils % 81.5 H Lymphocytes % 10.2 L Absolute Neutrophils 8.8 H Potassium 3.5 L Carbon Dioxide 35 H Anion Gap 4 L Creatine Kinase 22 L NT-Pro-B Natriuret Pep 1690 H Total Protein 5.6 L - Diagnostic Test Radiology reviewed: Image reviewed, Reports reviewed - EKG Interpretation by Me EKG shows normal: Sinus rhythm Rate: Normal Rhythm: NSR [place]/QRS: No: Right axis deviation, Left axis deviation, RBBB, LBBB, IVCD, LAHB/LAFB, LPHB/LPFB, Bifasicular block Voltage: No: Increased voltage, Consistant with LVH, Decreased voltage, Throughout, Limb leads P Waves: No: PRASHANT, LAE, Absent, AV Dissociation, Other Heart block present: No: 1st Degree, Mobitz 1, Mobitz 2, CHB (3rd degree block) When compared to previous EKG there are: No significant change Discharge - Discharge Clinical Impression: Weakness, Muscular deconditioning Condition: Good Disposition: HOME, SELF-CARE Instructions: Weakness ([facility]) Additional Instructions: You have been evaluated in the Emergency Department for frequent falls and weakness. All of your blood work was normal, and CAT scans of your head and neck were also normal. Please follow-up with your primary physician in the next few days to discuss home health with physical therapy as well as dietitian consult. Return to the Emergency Department if you experience chest pain, shortness of breath, confusion/disorientation, or any other concerning symptoms. Referrals: BERTHA MENDIOLA NP [ALLIED HEALTH PROFESSIONAL] - Follow up as needed Print Language: Estonian
--- NOTE | 2018-08-25 18:22 | RADIOLOGY REPORT (SQ) ---
EXAM DESCRIPTION: CT HEAD WITHOUT COMPLETED DATE/TIME: 08/25/2018 6:10 pm REASON FOR STUDY: bed 7 s/p fall per dr sierra COMPARISON: 04/24/2018 TECHNIQUE: Axial images acquired through the brain without intravenous contrast. Images reviewed wi th bone, brain and subdural windows. Additional sagittal and coronal reconstructions were generated. Images stored on PACS. All CT scanners at this facility use dose modulation, iterative reconstruction, and/or weight based d osing when appropriate to reduce radiation dose to as low as reasonably achievable (ALARA). [facility]: Dose Right [facility]: CareDose [facility]: Dose Right [facility]: Teradose 4D [facility]: Smart [employer] RADIATION DOSE: CT Rad equipment meets quality standard of care and radiation dose reduction techniq ues were employed. CTDIvol: 53.2 mGy. DLP: 991 mGy-cm. mGy. LIMITATIONS: None. FINDINGS: VENTRICLES: Prominent. CEREBRUM: No masses. No hemorrhage. No midline shift. Areas of low density in the white matter mos t likely due to chronic micro-vascular ischemic change. No evidence for acute infarction. CEREBELLUM: No masses. No hemorrhage. No alteration of density. No evidence for acute infarction. EXTRAAXIAL SPACES: Mild age-related involutional change. No fluid collections. No masses. ORBITS AND GLOBE: No intra- or extraconal masses. Normal contour of globe without masses. CALVARIUM: No fracture. PARANASAL SINUSES: No fluid or mucosal thickening. SOFT TISSUES: No mass or hematoma. OTHER: No other significant finding. IMPRESSION: MILD CHRONIC CHANGES OF ATROPHY AND MICROVASCULAR ISCHEMIA. NO ACUTE PROCESS. EVIDENCE OF ACUTE STROKE: NO. TECHNICAL DOCUMENTATION: JOB ID: [id number] Quality ID # [id number]: Final reports with documentation of one or more dose reduction techniques (e.g., Au tomated exposure control, adjustment of the mA and/or kV according to patient size, use of iterative reconstruction technique) 2010 [employer]- All Rights Reserved Reading location - IP/workstation name: [email or web address]
--- NOTE | 2018-08-25 18:24 | RADIOLOGY REPORT (SQ) ---
EXAM DESCRIPTION: CT CERVICAL SPINE WITHOUT COMPLETED DATE/TIME: 08/25/2018 6:10 pm REASON FOR STUDY: bed 7 s/p fall per dr sierra COMPARISON: 04/24/2018 TECHNIQUE: Axial images acquired through the cervical spine without intravenous contrast. Images re viewed with lung, soft tissue and bone windows. Reconstructed coronal and sagittal MPR images review ed. Images stored on PACS. All CT scanners at this facility use dose modulation, iterative reconstruction, and/or weight based d osing when appropriate to reduce radiation dose to as low as reasonably achievable (ALARA). [facility]: Dose Right [facility]: CareDose [facility]: Dose Right [facility]: Teradose 4D [facility]: Smart [employer] RADIATION DOSE: CT Rad equipment meets quality standard of care and radiation dose reduction techniq ues were employed. CTDIvol: 11.0 mGy. DLP: 264 mGy-cm. mGy. LIMITATIONS: None. FINDINGS: ALIGNMENT: Anatomic. MINERALIZATION: Choose 2 VERTEBRAL BODIES: No fractures or dislocation. DISCS: Multilevel degenerative disc disease. FACETS, LATERAL MASSES, POSTERIOR ELEMENTS: No fractures. No dislocation. No acute findings. HARDWARE: None in the spine. VISUALIZED RIBS: No fractures. LUNG APICES AND SOFT TISSUES: No significant or acute findings. OTHER: No other significant finding. IMPRESSION: NO ACUTE OR SIGNIFICANT FINDINGS IN THE CERVICAL SPINE. TECHNICAL DOCUMENTATION: JOB ID: [id number] Quality ID # [id number]: Final reports with documentation of one or more dose reduction techniques (e.g., Au tomated exposure control, adjustment of the mA and/or kV according to patient size, use of iterative reconstruction technique) 2010 [employer]- All Rights Reserved Reading location - IP/workstation name: [email or web address]
[2018-08-25 19:46] LABS: ABSOLUTE LYMPHOCYTES (AUTO) 1.1 10^3/uL (0.5-4.7); ABSOLUTE MONOCYTES (AUTO) 0.8 10^3/uL (0.1-1.4); ABSOLUTE NEUT (AUTO) 8.8 10^3/uL (1.7-8.2); BASOPHILS % (AUTO) 0.4 % (0-2); EOSINOPHILS % (AUTO) 0.4 % (0-6); HEMATOCRIT 39.4 % (37.9-51.0); HEMOGLOBIN 13.8 g/dL (13.5-17.0); LYMPHOCYTES % (AUTO) 10.2 % (13-45); MEAN CORPUSCULAR HEMOGLOBIN 34.7 pg (27.0-33.4); MEAN CORPUSCULAR HGB CONC 35.1 g/dL (32.0-36.0); MEAN CORPUSCULAR VOLUME 99 fl (80-97); MONOCYTES % (AUTO) 7.5 % (3-13); PLATELET COUNT 141 10^3/uL (150-450); RED BLOOD COUNT 3.98 10^6/uL (4.35-5.55); RED CELL DISTRIBUTION WIDTH 14.6 % (11.5-14.0); SEGMENTED NEUTROPHILS % (AUTO) 81.5 % (42-78); TOTAL CELLS COUNTED % (AUTO) 100 %; WHITE BLOOD COUNT 10.8 10^3/uL (4.0-10.5)
--- NOTE | 2018-08-25 20:09 | RADIOLOGY REPORT (SQ) ---
EXAM DESCRIPTION: XR CHEST 1 VIEW COMPLETED DATE/TME: 08/25/2018 19:13 CLINICAL HISTORY: 83 years, Male, Weakness Findings: Heart is mildly enlarged. Aorta is within normal limits. No consolidation or pleural effusions. No pulmonary edema or pneumothorax. IMPRESSION: No acute disease.
[2018-08-25 20:59] LABS: APPEARANCE,URINE CLEAR; BILIRUBIN,URINE NEGATIVE (NEGATIVE); COLOR,URINE YELLOW; GLUCOSE, URINE NEGATIVE (NEGATIVE); KETONES,URINE NEGATIVE (NEGATIVE); LEUKOCYTE ESTERASE,URINE NEGATIVE (NEGATIVE); NITRITE,URINE NEGATIVE (NEGATIVE); PROTEIN,URINE NEGATIVE (NEGATIVE); URINE SPECIFIC GRAVITY 1.015; UROBILINOGEN,URINE NEGATIVE mg/dL (<2.0)
[2018-08-25 21:02] LABS: ALANINE AMINOTRANSFERASE 25 U/L (21-72); ALBUMIN 3.6 g/dL (3.5-5.0); ALKALINE PHOSPHATASE 84 U/L (38-126); ASPARTATE AMINO TRANSFERASE 24 U/L (17-59); BILIRUBIN,DIRECT 0.1 mg/dL (0.0-0.4); BILIRUBIN,TOTAL 1.3 mg/dL (0.2-1.3); BLOOD UREA NITROGEN 14 mg/dL (7-20); CALCIUM 8.9 mg/dL (8.4-10.2); CARBON DIOXIDE 35 mmol/L (22-30); CHLORIDE 103 mmol/L (98-107); CREATINE KINASE 22 U/L (55-170); GLUCOSE 93 mg/dL (75-110); POTASSIUM 3.5 mmol/L (3.6-5.0); SODIUM 142.2 mmol/L (137-145); TOTAL PROTEIN 5.6 g/dL (6.3-8.2)
[2018-08-25 21:10] LABS: URINE AMPHETAMINES SCREEN NEGATIVE; URINE BARBITURATES SCREEN NEGATIVE; URINE BENZODIAZEPINES SCREEN NEGATIVE; URINE COCAINE SCREEN NEGATIVE; URINE MARIJUANA (THC) SCREEN NEGATIVE; URINE METHADONE SCREEN NEGATIVE; URINE PHENCYCLIDINE SCREEN NEGATIVE
[2018-08-25 21:29] LABS: CREATINE KINASE MB 0.46 ng/mL (<4.55); TROPONIN I 0.022 ng/mL
[2018-08-25 21:47] LABS: ALCOHOL < 10 mg/dL (NONE DETECTED)
[2018-08-25 21:48] LABS: ANION GAP 4 (5-19)
[2018-08-25 22:55] VITALS: BP 167/89
--- NOTE | 2018-08-26 07:48 | EKG REPORT ---
SEVERITY:- ABNORMAL ECG - SINUS RHYTHM LAD, CONSIDER LEFT ANTERIOR FASCICULAR BLOCK PROBABLE ANTEROSEPTAL INFARCT, AGE INDETERM : Confirmed by: Shaggy Sewell MD 26-Aug-2018 07:47:15
== END 2018-08-25 22:55 | disposition home or self-care (01) ==
LOC: ER 17:22
DX: M54.9 Dorsalgia, unspecified (principal); I10 Essential (primary) hypertension; R53.1 Weakness; Z91.81 History of falling
CPT/HCPCS: 36415; 70450; 71045; 72125; 80053; 80307; 81001; 82550; 82553; 83880; 84484; 85025; 93005; 93010; 99284

== ENCOUNTER 2018-08-30 14:21 | Inpatient (IN) | payer MEDICARE, OTHER ==
--- NOTE | 2018-08-30 14:31 | ER Document Report ---
ED General - General Stated Complaint: FALL Time Seen by Provider: 08/30/18 14:25 Primary Care Provider: HEMAL NAVARRETE MD [Primary Care Provider] - Follow up as needed Notes: 83-year-old male to emergency department chief complaint of fall/syncope and laceration and pain to the right elbow. he reports that he has had several episodes of pain over the last several weeks. Thinks that he may be passing out. Denies any blood in his stool but states that he has had some bloody urine. Has some mild pain in the right elbow with a laceration to the right elbow. Was seen here on Friday after a fall and hit his head. TRAVEL OUTSIDE OF THE [place] IN LAST 30 DAYS: No - HPI Onset: Just prior to arrival Onset/Duration: Sudden Severity: Mild Pain Level: 1 Associated symptoms: None Exacerbated by: Standing, Walking Relieved by: Denies - Related Data Allergies/Adverse Reactions: guaifenesin [From Entex] Allergy (Verified 04/24/18 13:30) phenylephrine HCl [From Entex] Allergy (Verified 04/24/18 13:30) phenylpropanolamine [From Entex] Allergy (Verified 04/24/18 13:30) pseudoephedrine tannate [From Entex] Allergy (Verified 04/24/18 13:30) Past Medical History - General Information source: Patient, Relative - - Social History Smoking Status: Unknown if Ever Smoked Frequency of alcohol use: None Drug Abuse: None Lives with: Spouse/Significant other Family History: Reviewed & Not Pertinent, Hypertension - Past Medical History Cardiac Medical History: Reports: Hx Hypertension Denies: Hx Pulmonary Embolism Pulmonary Medical History: Reports: Hx Pneumonia Denies: Hx Asthma, Hx Bronchitis, Hx COPD, Hx Respiratory Failure, Hx Sleep Apnea, Hx Tuberculosis Neurological Medical History: Denies: Hx Cerebrovascular Accident, Hx Seizures Endocrine Medical History: Denies: Hx Graves' Disease, Hx Hyperthyroidism, Hx Hypothyroidism Renal/ Medical History: Denies: Hx Benign Prostatic Hyperplasia, Hx End Stage Renal Disease, Hx Kidney Stones, Hx Peritoneal Dialysis Malignancy Medical History: Denies Hx Leukemia, Denies Hx Lung Cancer, Reports Hx Lymphoma, Reports Hx Prostate Cancer GI Medical History: Reports: Hx Gastroesophageal Reflux Disease. Denies: Hx Crohn's Disease, Hx Hiatal Hernia, Hx Irritable Bowel, Hx Liver Failure, Hx Pancreatitis, Hx Ulcer Musculoskeletal Medical History: Denies Hx Arthritis, Denies Hx Fibromyalgia, Denies Hx Muscular Dystrophy Psychiatric Medical History: Denies: Hx Depression Traumatic Medical History: Reports: Hx Fractures - right leg Infectious Medical History: Denies: Hx HIV Past Surgical History: Reports: Hx Tonsillectomy, Hx Urinary Tract Surgery - prostatectomy. Denies: Hx Appendectomy, Hx Bowel Surgery, Hx Cholecystectomy, Hx Colostomy, Hx Coronary Artery Bypass Graft, Hx Gastric Bypass Surgery, Hx Herniorrhaphy, Hx Pacemaker - Immunizations Immunizations up to date: Yes Hx Diphtheria, Pertussis, Tetanus Vaccination: Yes Hx Pneumococcal Vaccination: 07/07/00 Review of Systems - Review of Systems Notes: Constitutional: denies: Chills, Diaphoresis, Fever, Malaise, +Weakness EENT: denies: Eye discharge, Blurred vision, Tearing, Double vision, Nose congestion, Nose discharge, Throat swelling, Mouth pain Cardiovascular: denies: Palpitations, Heart racing, Orthopnea, Dyspnea, Chest pain, + syncope Respiratory: denies: Cough, Hurts to breathe, Wheezing, Shortness of breath Gastrointestinal: denies: Abdominal pain, Diarrhea, Nausea, Vomiting, Black stools, bright red blood in stool Genitourinary: denies: Burning, Dysuria, Discharge, Frequency, Flank pain, Hematuria Musculoskeletal: denies: Joint pain, Joint swelling, Muscle pain, Muscle stiffness, back pain. Positive for elbow pain Hematologic/Lymphatic: denies: Anemia, Easy bleeding, Easy bruising, Blood clots Neurological/Psychological: denies: Confusion, +Dementia, Depression, Loss of consciousness Skin: No lesions, no masses, no skin breakdown, no abscesses. Laceration right elbow/skin tear right elbow Physical Exam - Vital signs Vitals: Resp 21 H 08/30/18 14:26 Interpretation: Normal - General General appearance: Appears well, Alert - HEENT Head: Normocephalic, Atraumatic Eyes: Normal Pupils: PERRL - Respiratory Respiratory status: No respiratory distress Chest status: Nontender Breath sounds: Normal Chest palpation: Normal - Cardiovascular Rhythm: Regular Heart sounds: Normal auscultation Murmur: No - Abdominal Inspection: Normal Distension: No distension Bowel sounds: Normal Tenderness: Nontender Organomegaly: No organomegaly - Back Back: Normal, Nontender - Extremities General upper extremity: Normal inspection, Normal color, Normal ROM, Normal temperature, Other - Mild tenderness to palpation to the right elbow. There is a large skin tear noted on the radial aspect of the right elbow area. Contaminated. Skin is still present. General lower extremity: Normal inspection, Nontender, Normal color, Normal ROM, Normal temperature, Other - There are a few contusions on the bilateral knees. Unsteady on feet.. No: Sayda's sign - Neurological Neuro grossly intact: Yes Cognition: Short term memory loss Orientation: AAOx4 [place] Coma Scale Eye Opening: Spontaneous [place] Coma Scale Verbal: Oriented [place] Coma Scale Motor: Obeys Commands [place] Coma Scale Total: 15 Speech: Normal Motor strength normal: LUE, RUE, LLE, RLE Sensory: Normal - Psychological Associated symptoms: Normal affect, Normal mood - Skin Skin Temperature: Warm Skin Moisture: Dry Skin Color: Normal Course - Re-evaluation Re-evalutation: 08/30/18 16:58 Laboratory 08/30/18 08/30/18 08/30/18 14:47 14:47 14:47 WBC 9.0 RBC 3.82 L Hgb 13.0 L Hct 37.3 L MCV 98 H MCH 34.0 H MCHC 34.9 RDW 14.3 H Plt Count 164 Seg Neutrophils % 70.8 Lymphocytes % 15.9 Monocytes % 11.8 Eosinophils % 1.0 Basophils % 0.5 Absolute Neutrophils 6.4 Absolute Lymphocytes 1.4 Absolute Monocytes 1.1 Absolute Eosinophils 0.1 Absolute Basophils 0.0 Sodium 141.5 Potassium 3.3 L Chloride 101 Carbon Dioxide 33 H Anion Gap 8 BUN 14 Creatinine 0.70 Est GFR ( Amer) > 60 Est GFR (Non-Af Amer) > 60 Glucose 93 Calcium 9.2 Total Bilirubin 1.5 H Direct Bilirubin 0.1 Neonat Total Bilirubin Not Reportable Neonat Direct Bilirubin Not Reportable Neonat Indirect Bili Not Reportable AST 26 ALT 26 Alkaline Phosphatase 103 Creatine Kinase 24 L CK-MB (CK-2) 0.46 Troponin I 0.015 Total Protein 5.7 L Albumin 3.6 Urine Color Urine Appearance Urine pH Ur Specific [place] Urine Protein Urine Glucose (UA) Urine Ketones Urine Blood Urine Nitrite Urine Bilirubin Urine Urobilinogen Ur Leukocyte Esterase Urine WBC (Auto) Urine RBC (Auto) U Hyaline Cast (Auto) Urine Bacteria (Auto) Squamous Epi Cells Auto Urine Mucus (Auto) Urine Ascorbic Acid 08/30/18 15:35 WBC RBC Hgb Hct MCV MCH MCHC RDW Plt Count Seg Neutrophils % Lymphocytes % Monocytes % Eosinophils % Basophils % Absolute Neutrophils Absolute Lymphocytes Absolute Monocytes Absolute Eosinophils Absolute Basophils Sodium Potassium Chloride Carbon Dioxide Anion Gap BUN Creatinine Est GFR ( Amer) Est GFR (Non-Af Amer) Glucose Calcium Total Bilirubin Direct Bilirubin Neonat Total Bilirubin Neonat Direct Bilirubin Neonat Indirect Bili AST ALT Alkaline Phosphatase Creatine Kinase CK-MB (CK-2) Troponin I Total Protein Albumin Urine Color YELLOW Urine Appearance SLIGHTLY-CLOUDY Urine pH 6.0 Ur Specific [place] 1.011 Urine Protein 30 H Urine Glucose (UA) NEGATIVE Urine Ketones NEGATIVE Urine Blood LARGE H Urine Nitrite NEGATIVE Urine Bilirubin NEGATIVE Urine Urobilinogen NEGATIVE Ur Leukocyte Esterase NEGATIVE Urine WBC (Auto) 5 Urine RBC (Auto) 153 U Hyaline Cast (Auto) 1 Urine Bacteria (Auto) 1+ Squamous Epi Cells Auto <1 Urine Mucus (Auto) RARE Urine Ascorbic Acid NEGATIVE Chest X-Ray 08/30/18 14:39 IMPRESSION: NO ACUTE FINDINGS. Elbow X-Ray 08/30/18 14:39 IMPRESSION: NO FRACTURE. Head CT 08/30/18 14:39 IMPRESSION: No acute intracranial findings. EVIDENCE OF ACUTE STROKE: NO. Labs unremarkable/Will admit to the [facility] at this time for syncope. - Vital Signs Vital signs: Temp Pulse Resp BP Pulse Ox 98.1 F 16 189/62 H 98 08/30/18 14:32 08/30/18 14:29 08/30/18 14:29 08/30/18 14:29 - Laboratory Result Diagrams: 08/30/18 14:47 08/30/18 14:47 Laboratory results interpreted by me: 08/30/18 08/30/18 08/30/18 14:47 14:47 15:35 RBC 3.82 L Hgb 13.0 L Hct 37.3 L MCV 98 H MCH 34.0 H RDW 14.3 H Potassium 3.3 L Carbon Dioxide 33 H Total Bilirubin 1.5 H Creatine Kinase 24 L Total Protein 5.7 L Urine Protein 30 H Urine Blood LARGE H - EKG Interpretation by Me EKG shows normal: Sinus rhythm, QRS Complexes, ST-T Waves [place]/QRS: RBBB Procedures - Laceration/Wound Repair Right Elbow Time completed: 15:22 Wound length (cm): 5 Wound's Depth, Shape: Superficial, Flap Wound explored: Clean, No foreign body removed Wound Repaired With: Dermabond Discharge - Discharge Clinical Impression: Syncope and collapse Elbow laceration Qualifiers: Encounter type: initial encounter Laterality: right Qualified Code(s): S51.011A - Laceration without foreign body of right elbow, initial encounter Condition: Good Disposition: ADMITTED INPATIENT Admitting Provider: Hospitalist - [facility] Unit Admitted: Telemetry Referrals: HEMAL NAVARRETE MD [Primary Care Provider] - Follow up as needed
[2018-08-30 15:03] LABS: ABSOLUTE EOSINOPHILS # (AUTO) 0.1 10^3/uL (0.0-0.6); ABSOLUTE LYMPHOCYTES (AUTO) 1.4 10^3/uL (0.5-4.7); ABSOLUTE MONOCYTES (AUTO) 1.1 10^3/uL (0.1-1.4); ABSOLUTE NEUT (AUTO) 6.4 10^3/uL (1.7-8.2); BASOPHILS % (AUTO) 0.5 % (0-2); HEMATOCRIT 37.3 % (37.9-51.0); LYMPHOCYTES % (AUTO) 15.9 % (13-45); MEAN CORPUSCULAR HGB CONC 34.9 g/dL (32.0-36.0); MEAN CORPUSCULAR VOLUME 98 fl (80-97); MONOCYTES % (AUTO) 11.8 % (3-13); PLATELET COUNT 164 10^3/uL (150-450); RED BLOOD COUNT 3.82 10^6/uL (4.35-5.55); RED CELL DISTRIBUTION WIDTH 14.3 % (11.5-14.0); SEGMENTED NEUTROPHILS % (AUTO) 70.8 % (42-78); TOTAL CELLS COUNTED % (AUTO) 100 %
[2018-08-30 15:22] LABS: ALANINE AMINOTRANSFERASE 26 U/L (21-72); ALBUMIN 3.6 g/dL (3.5-5.0); ALKALINE PHOSPHATASE 103 U/L (38-126); ANION GAP 8 (5-19); ASPARTATE AMINO TRANSFERASE 26 U/L (17-59); BILIRUBIN,DIRECT 0.1 mg/dL (0.0-0.4); BILIRUBIN,TOTAL 1.5 mg/dL (0.2-1.3); BLOOD UREA NITROGEN 14 mg/dL (7-20); CALCIUM 9.2 mg/dL (8.4-10.2); CARBON DIOXIDE 33 mmol/L (22-30); CHLORIDE 101 mmol/L (98-107); CREATINE KINASE 24 U/L (55-170); GLUCOSE 93 mg/dL (75-110); POTASSIUM 3.3 mmol/L (3.6-5.0); SODIUM 141.5 mmol/L (137-145); TOTAL PROTEIN 5.7 g/dL (6.3-8.2)
[2018-08-30 15:33] LABS: CREATINE KINASE MB 0.46 ng/mL (<4.55); TROPONIN I 0.015 ng/mL
--- NOTE | 2018-08-30 15:37 | RADIOLOGY REPORT (SQ) ---
EXAM DESCRIPTION: CT HEAD WITHOUT COMPLETED DATE/TIME: 08/30/2018 3:24 pm REASON FOR STUDY: fall, syncope, pain COMPARISON: 08/25/2018 TECHNIQUE: Axial images acquired through the brain without intravenous contrast. Images reviewed wi th bone, brain and subdural windows. Images stored on PACS. All CT scanners at this facility use dose modulation, iterative reconstruction, and/or weight based d osing when appropriate to reduce radiation dose to as low as reasonably achievable (ALARA). [facility]: Dose Right [facility]: CareDose [facility]: Dose Right [facility]: Teradose 4D [facility]: Smart Vet [employer] RADIATION DOSE: CT Rad equipment meets quality standard of care and radiation dose reduction techniq ues were employed. CTDIvol: 53.2 mGy. DLP: 1017 mGy-cm. mGy. LIMITATIONS: None. FINDINGS: VENTRICLES: Age-appropriate CEREBRUM: No masses. No hemorrhage. No midline shift. Areas of low density in the white matter mos t likely due to chronic micro-vascular ischemic change. No evidence for acute infarction. CEREBELLUM: No masses. No hemorrhage. No alteration of density. No evidence for acute infarction. EXTRAAXIAL SPACES: Mild age-related involutional change. No fluid collections. No masses. ORBITS AND GLOBE: No intra- or extraconal masses. Normal contour of globe without masses. CALVARIUM: No fracture. PARANASAL SINUSES: No fluid or mucosal thickening. SOFT TISSUES: No mass or hematoma. OTHER: No other significant finding. IMPRESSION: No acute intracranial findings. EVIDENCE OF ACUTE STROKE: NO. TECHNICAL DOCUMENTATION: JOB ID: [id number] [place]-72 Quality ID # [id number]: Final reports with documentation of one or more dose reduction techniques (e.g., Au tomated exposure control, adjustment of the mA and/or kV according to patient size, use of iterative reconstruction technique) 2010 [employer]- All Rights Reserved Reading location - IP/workstation name: [email or web address]
--- NOTE | 2018-08-30 15:39 | RADIOLOGY REPORT (SQ) ---
EXAM DESCRIPTION: ELBOW RIGHT AP/LAT COMPLETED DATE/TIME: 08/30/2018 3:28 pm REASON FOR STUDY: fall, pain COMPARISON: 04/27/2016 EXAM PARAMETERS: NUMBER OF VIEWS: Two view. TECHNIQUE: AP and lateral radiographic images acquired of the right elbow. LIMITATIONS: None. FINDINGS: MINERALIZATION: Normal. BONES: No acute fracture or dislocation. No worrisome bone lesions. JOINTS: No effusion. SOFT TISSUES: No significant soft tissue swelling. No radiopaque foreign body. OTHER: No other significant finding. IMPRESSION: NO FRACTURE. TECHNICAL DOCUMENTATION: JOB ID: [id number] [place]-72 2010 [employer]- All Rights Reserved Reading location - IP/workstation name: [email or web address]
--- NOTE | 2018-08-30 15:46 | RADIOLOGY REPORT (SQ) ---
EXAM DESCRIPTION: CHEST SINGLE VIEW COMPLETED DATE/TIME: 08/30/2018 3:28 pm REASON FOR STUDY: syncope COMPARISON: 08/25/2018 TECHNIQUE: Single frontal radiographic view of the chest acquired. NUMBER OF VIEWS: One view. LIMITATIONS: None. FINDINGS: LUNGS AND PLEURA: No pneumothorax. No consolidation or pleural effusion. MEDIASTINUM AND HILAR STRUCTURES: Stable. HEART AND VASCULAR STRUCTURES: Stable. BONES: No acute findings. HARDWARE: None in the chest. OTHER: No other significant finding. IMPRESSION: NO ACUTE FINDINGS. TECHNICAL DOCUMENTATION: JOB ID: [id number] [place]-72 2010 [employer] All Rights Reserved Reading location - IP/workstation name: [email or web address]
--- NOTE | 2018-08-30 15:54 | EKG REPORT ---
SEVERITY:- ABNORMAL ECG - SINUS RHYTHM INCOMPLETE RBBB AND LAFB ANTERIOR INFARCT, OLD : Confirmed by: Shaggy Sewell MD 30-Aug-2018 15:53:21
[2018-08-30] MEDS ORDERED: NORMAL SALINE 1000 ML 1,000 ML IV ONE (15:57)
[2018-08-30 16:15] LABS: APPEARANCE,URINE SLIGHTLY-CLOUDY; BILIRUBIN,URINE NEGATIVE (NEGATIVE); COLOR,URINE YELLOW; GLUCOSE, URINE NEGATIVE (NEGATIVE); KETONES,URINE NEGATIVE (NEGATIVE); LEUKOCYTE ESTERASE,URINE NEGATIVE (NEGATIVE); NITRITE,URINE NEGATIVE (NEGATIVE); PROTEIN,URINE 30 mg/dL (NEGATIVE); URINE SPECIFIC GRAVITY 1.011; UROBILINOGEN,URINE NEGATIVE mg/dL (<2.0)
[2018-08-30] MEDS ORDERED: ONDANSETRON 4 MG TAB.RAPDIS PO PRN (17:48)
[2018-08-30] MEDS ORDERED: ACETAMINOPHEN 325 MG TABLET PO PRN (17:48)
[2018-08-30] MEDS ORDERED: OXYCODONE-ACETAMINOPHEN 5-325 MG TABLET PO PRN (17:48)
[2018-08-30] MEDS ORDERED: IPRATROPIUM/ALBUTEROL 0.5-2.5 MG/3 ML AMPUL NEB PRN (17:48)
--- NOTE | 2018-08-30 17:48 | PDOC H&P ---
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 Patient's who is accompanying him stating that he does not have any energy, low appetite, denies weakness, his falls are due to feeling weak in his legs. States that before falling he feels like his legs are giving out, denies any palpitation, lightheadedness, chest pain, vertigo seeding falls, he denies loss of consciousness post fall. denies witnessing any convulsions, confusion post fall. And has been on prednisone since 2011 recently was switched to hydrocortisone and fludrocortisone with no apparent changes in his weakness. He denies any fever, chills, chest pain, shortness of breath, nausea, vomiting, diarrhea, constipation or any urinary symptoms. 3 months ago he had MRI of brain which did not show any acute abnormality except for changes consistent with aging. He used to be independent but recently has been dependent on his 's help due to recurrent falls and worsening weakness. 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 CT head negative for any acute abnormalities. Chest x-ray negative for any acute abnormalities. CBC within normal limits, CMP within normal limits except for low potassium, UA positive for hematuria. 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 He presented to ED on 08/25/[address] head without contrast was negative for any acute abnormalities. CT cervical spine negative for any acute changes. Past Medical History Cardiac Medical History: Reports: Hypertension Denies: Pulmonary Embolism Pulmonary Medical History: Reports: Pneumonia Denies: Asthma, Bronchitis, Chronic Obstructive Pulmonary Disease (COPD), Respiratory Failure, Sleep Apnea, Tuberculosis Neurological Medical History: Denies: Seizures Endocrine Medical History: Denies: Hyperthyroidism, Hypothyroidism Renal/ Medical History: Denies: End Stage Renal Disease Malignancy Medical History: Reports: Lymphoma Denies: Leukemia, Lung Cancer GI Medical History: Reports: Gastroesophageal Reflux Disease Denies: Crohn's Disease, Hiatal Hernia Musculoskeltal Medical History: Denies: Arthritis, Fibromyalgia Psychiatric Medical History: Denies: Depression Hematology: Reports: Anemia Denies: Hemophilia, Sickle Cell Disease Infectious Medical History: Denies: HIV Past Surgical History Past Surgical History: Reports: Tonsillectomy Denies: Appendectomy, Cholecystectomy, Colostomy, Coronary Artery Bypass Graft, Gastric Bypass Surgery, Herniorrhaphy, Pacemaker Social History Lives with: Spouse/Significant other Smoking Status: Unknown if Ever Smoked Frequency of Alcohol Use: Rare Hx Recreational Drug Use: No Drugs: None Hx Prescription Drug Abuse: No Family History Family History: Reviewed & Not Pertinent, Hypertension Parental Family History Reviewed: Yes Children Family History Reviewed: Yes Sibling(s) Family History Reviewed.: Yes Medication/Allergy Home Medications: Aspirin [Ecotrin 81 mg EC Tablet] 81 mg PO DAILY 06/10/17 Prednisone [Deltasone 10 mg Tablet] 10 mg PO DAILY 06/10/17 Calcium Carbonate [Os-Eloy 500 mg Tablet (Oyster-Shell)] 500 mg PO DAILY 11/02/17 Multivitamin [Tab-A-Marcelo (Multiple Vitamin) Tablet] 1 tab PO DAILY 11/02/17 Levofloxacin [Levaquin 750 mg Tablet] 500 mg PO DAILY #5 tablet 11/07/17 Prednisone [Deltasone 20 mg Tablet] 10 mg PO BID #60 tablet 11/07/17 Allergies/Adverse Reactions: guaifenesin [From Entex] Allergy (Verified 04/24/18 13:30) phenylephrine HCl [From Entex] Allergy (Verified 04/24/18 13:30) phenylpropanolamine [From Entex] Allergy (Verified 04/24/18 13:30) pseudoephedrine tannate [From Entex] Allergy (Verified 04/24/18 13:30) Review of Systems Review of Systems: Per HPI. Physical Exam Vital Signs: Temp Pulse Resp BP Pulse Ox 98.1 F 16 189/62 H 98 08/30/18 14:32 08/30/18 14:29 08/30/18 14:29 08/30/18 14:29 Intake & Output 08/29/18 08/30/18 08/31/18 06:59 06:59 06:59 Weight 50.5 kg General appearance: PRESENT: no acute distress, cooperative, thin Head exam: PRESENT: atraumatic, normocephalic Eye exam: PRESENT: conjunctiva pink, EOMI, PERRLA. ABSENT: scleral icterus Respiratory exam: PRESENT: clear to auscultation destiney. ABSENT: rales, rhonchi, wheezes Cardiovascular exam: PRESENT: RRR. ABSENT: diastolic murmur, rubs, systolic murmur Pulses: PRESENT: normal dorsalis pedis pul GI/Abdominal exam: PRESENT: normal bowel sounds, soft. ABSENT: distended, guarding, mass, organolmegaly, rebound, tenderness Extremities exam: PRESENT: full ROM. ABSENT: calf tenderness, clubbing, pedal edema Neurological exam: PRESENT: alert, awake, oriented to person, oriented to place, oriented to time, oriented to situation, CN II-XII grossly intact. ABSENT: motor sensory deficit Skin exam: PRESENT: other - Multiple ecchymosis throughout lower extremity. Results Laboratory Results: 08/30/18 14:47 08/30/18 14:47 08/30/18 08/30/18 08/30/18 14:47 14:47 15:35 WBC 9.0 RBC 3.82 L Hgb 13.0 L Hct 37.3 L MCV 98 H MCH 34.0 H MCHC 34.9 RDW 14.3 H Plt Count 164 Seg Neutrophils % 70.8 Lymphocytes % 15.9 Monocytes % 11.8 Eosinophils % 1.0 Basophils % 0.5 Absolute Neutrophils 6.4 Absolute Lymphocytes 1.4 Absolute Monocytes 1.1 Absolute Eosinophils 0.1 Absolute Basophils 0.0 Sodium 141.5 Potassium 3.3 L Chloride 101 Carbon Dioxide 33 H Anion Gap 8 BUN 14 Creatinine 0.70 Est GFR ( Amer) > 60 Est GFR (Non-Af Amer) > 60 Glucose 93 Calcium 9.2 Total Bilirubin 1.5 H AST 26 ALT 26 Alkaline Phosphatase 103 Total Protein 5.7 L Albumin 3.6 Urine Color YELLOW Urine Appearance SLIGHTLY-CLOUDY Urine pH 6.0 Ur Specific [place] 1.011 Urine Protein 30 H Urine Glucose (UA) NEGATIVE Urine Ketones NEGATIVE Urine Blood LARGE H Urine Nitrite NEGATIVE Ur Leukocyte Esterase NEGATIVE Urine WBC (Auto) 5 Urine RBC (Auto) 153 08/30/18 08/30/18 14:47 14:47 Creatine Kinase 24 L CK-MB (CK-2) 0.46 Troponin I 0.015 Impressions: Chest X-Ray 08/30/18 14:39 IMPRESSION: NO ACUTE FINDINGS. Elbow X-Ray 08/30/18 14:39 IMPRESSION: NO FRACTURE. Head CT 08/30/18 14:39 IMPRESSION: No acute intracranial findings. EVIDENCE OF ACUTE STROKE: NO. Assessment & Plan - Diagnosis (1) Recurrent falls Is this a current diagnosis for this admission?: Yes Plan: Most likely due to muscular deconditioning and failure to thrive. Has been on chronic steroids for his CIDP. Admit to telemetry, 2D echo, carotid Doppler. PT/OT. Would likely benefit from inpatient rehab. CT head, troponins, ECG negative for any acute abnormalities. (2) Hypokalemia Is this a current diagnosis for this admission?: Yes Plan: Replaced. BMP tomorrow. (3) Malnutrition Qualifiers: Protein-calorie malnutrition severity: moderate Is this a current diagnosis for this admission?: Yes Plan: History of prostate cancer/non-Hodgkin's lymphoma. Consult oncology to workup for any recurrence of underlying malignancies. Meanwhile we will consult site supervising technical operator and will start on appetite stimulants. (4) Anorexia Is this a current diagnosis for this admission?: Yes Plan: Continue Magace, Nuclear Equipment Test Engineer Consult. (5) CIDP (chronic inflammatory demyelinating polyneuropathy) Is this a current diagnosis for this admission?: Yes Plan: Continue hydrocortisone. (8) Non Hodgkin's lymphoma Qualifiers: Non-Hodgkin lymphoma type: unspecified type (9) Hematuria Is this a current diagnosis for this admission?: Yes Plan: Renal ultrasound. UA positive for RBC. Note: Has history of prostate cancer status post prostatectomy.
[2018-08-30] MEDS ORDERED: HYDRALAZINE HCL INJ/PF 20 MG/1 ML SDV IV PRN (17:59)
[2018-08-30] MEDS: DEXTROSE 5%-NORMAL SALINE 1,000 ML IV PRN (18:34)
[2018-08-30 18:41] LABS: PREALBUMIN 13.7 mg/dL (17.6-36.0)
[2018-08-30] MEDS ORDERED: HYDROCORTISONE 10 MG TABLET ONE (21:34)
[2018-08-30] MEDS: CARVEDILOL 6.25 MG TABLET PO SCH (21:59)
[2018-08-30] MEDS: HYDROCORTISONE 10 MG TABLET PO SCH (22:17)
[2018-08-31] MEDS: DEXTROSE 5%-NORMAL SALINE 1,000 ML IV PRN ×2 (05:27→23:44)
[2018-08-31] MEDS: LANSOPRAZOLE 30 MG TAB.RAP.DR PO SCH (05:27)
[2018-08-31 07:20] LABS: ABSOLUTE BASOPHILS # (AUTO) 0.1 10^3/uL (0.0-0.2); ABSOLUTE MONOCYTES (AUTO) 0.9 10^3/uL (0.1-1.4); ABSOLUTE NEUT (AUTO) 10.2 10^3/uL (1.7-8.2); BASOPHILS % (AUTO) 0.5 % (0-2); EOSINOPHILS % (AUTO) 0.1 % (0-6); HEMATOCRIT 32.9 % (37.9-51.0); HEMOGLOBIN 11.7 g/dL (13.5-17.0); LYMPHOCYTES % (AUTO) 8.2 % (13-45); MEAN CORPUSCULAR HEMOGLOBIN 34.6 pg (27.0-33.4); MEAN CORPUSCULAR HGB CONC 35.6 g/dL (32.0-36.0); MEAN CORPUSCULAR VOLUME 97 fl (80-97); MONOCYTES % (AUTO) 7.2 % (3-13); PLATELET COUNT 143 10^3/uL (150-450); RED BLOOD COUNT 3.39 10^6/uL (4.35-5.55); RED CELL DISTRIBUTION WIDTH 14.5 % (11.5-14.0); TOTAL CELLS COUNTED % (AUTO) 100 %; WHITE BLOOD COUNT 12.1 10^3/uL (4.0-10.5)
[2018-08-31 07:52] LABS: ALANINE AMINOTRANSFERASE 15 U/L (21-72); ALKALINE PHOSPHATASE 82 U/L (38-126); ANION GAP 6 (5-19); ASPARTATE AMINO TRANSFERASE 24 U/L (17-59); BILIRUBIN,DIRECT 0.3 mg/dL (0.0-0.4); BILIRUBIN,TOTAL 1.7 mg/dL (0.2-1.3); BLOOD UREA NITROGEN 10 mg/dL (7-20); CALCIUM 8.3 mg/dL (8.4-10.2); CARBON DIOXIDE 28 mmol/L (22-30); CHLORIDE 109 mmol/L (98-107); GLUCOSE 98 mg/dL (75-110); POTASSIUM 3.2 mmol/L (3.6-5.0); SODIUM 142.8 mmol/L (137-145); TOTAL PROTEIN 5.1 g/dL (6.3-8.2)
[2018-08-31 08:01] LABS: FREE T3 3.26 pg/mL (2.77-5.27); FREE T4 (FREE THYROXINE) 1.43 ng/dL (0.78-2.19)
--- NOTE | 2018-08-31 08:32 | RADIOLOGY REPORT (SQ) ---
EXAM DESCRIPTION: U/S ABDOMEN COMPLETE W/O DOP COMPLETED DATE/TIME: 08/31/2018 6:27 am REASON FOR STUDY: Hematuria. COMPARISON: None. TECHNIQUE: Dynamic and static grayscale images acquired of the abdomen and recorded on PACS. Additio nal selected color Doppler and spectral images recorded. Note: Study does not meet criteria for complete doppler/duplex scan LIMITATIONS: Limited examination due to patient positioning. FINDINGS: PANCREAS: Limited evaluation. No masses. Visualized pancreatic duct normal caliber. LIVER: The liver measures 12.6 cm in length, normal size. No masses. Echotexture normal. LIVER VASCULATURE: Normal directional flow of the main portal vein and hepatic veins. GALLBLADDER: No stones. The gallbladder wall measures 2.2 mm, normal wall thickness. No pericholecys tic fluid. ULTRASOUND-DETECTED CHIRINOS'S SIGN: Negative. INTRAHEPATIC DUCTS AND COMMON DUCT: CBD measures 2.2 mm in diameter, normal. The intrahepatic ducts normal caliber. No filling defects. INFERIOR VENA CAVA: Normal flow. AORTA: No aneurysm. RIGHT KIDNEY: The right kidney measures 9.9 cm x 4.4 cm x 5.0 cm, normal size. Normal echogenicity . No solid or suspicious masses. No hydronephrosis. No calcifications. LEFT KIDNEY: The left kidney measures 9.1 cm x 4.2 cm x 3.3 cm, normal size. Normal echogenicity. No solid or suspicious masses. No hydronephrosis. No calcifications. SPLEEN: The spleen measures 7.1 cm in length, normal size. No solid masses. PERITONEAL AND PLEURAL SPACES: Moderate amount of free fluid. Bilateral pleural effusions. OTHER: No other significant finding. IMPRESSION: 1. Bilateral pleural effusions. Moderate amount of ascites. 2. No evidence of hydronephrosis. 3. The examination is limited due to patient positioning. TECHNICAL DOCUMENTATION: JOB ID: [id number] [employer]- All Rights Reserved Reading location - IP/workstation name: [email or web address]
--- NOTE | 2018-08-31 08:49 | PDOC CONSULTATION ---
Consultation Consult Date: 08/31/18 Attending physician:: HALEY HERZOG Consult reason:: Weakness, weight loss, failure to thrive History of Present Illness Admission Date/PCP: 08/30/18 17:14 HEMAL NAVARRETE MD Patient complains of: Weakness, weight loss History of Present Illness: JOSIE TRUONG is a 83 year old male with weakness, weight loss, failure to thrive, he has been getting weaker and weaker and lost considerable weight. He does have other multiple medical conditions. We saw him last in 2017, at that time we noted that he had history of diffuse large B-cell lymphoma that was diagnosed in 1997 and he underwent aggressive chemotherapy and then transplant thereafter. He has been cancer free since 1998. In 1993 he had early stage prostate cancer status post prostatectomy and he has been cancer free from that realm as well. Past Medical History Cardiac Medical History: Reports: Hypertension Denies: Pulmonary Embolism Pulmonary Medical History: Reports: Pneumonia Denies: Asthma, Bronchitis, Chronic Obstructive Pulmonary Disease (COPD), Respiratory Failure, Sleep Apnea, Tuberculosis Neurological Medical History: Denies: Seizures Endocrine Medical History: Denies: Hyperthyroidism, Hypothyroidism Renal/ Medical History: Denies: End Stage Renal Disease Malignancy Medical History: Reports: Lymphoma, Other - Prostate cancer Denies: Leukemia, Lung Cancer GI Medical History: Reports: Gastroesophageal Reflux Disease Denies: Crohn's Disease, Hiatal Hernia Musculoskeltal Medical History: Denies: Arthritis, Fibromyalgia Psychiatric Medical History: Denies: Depression Hematology: Reports: Anemia Denies: Hemophilia, Sickle Cell Disease Infectious Medical History: Denies: HIV Past Surgical History Past Surgical History: Reports: Tonsillectomy, Other - Prostatectomy Denies: Appendectomy, Cholecystectomy, Colostomy, Coronary Artery Bypass Graft, Gastric Bypass Surgery, Herniorrhaphy, Pacemaker Social History Information Source: Patient Lives with: Spouse/Significant other Smoking Status: Unknown if Ever Smoked Frequency of Alcohol Use: Rare Hx Recreational Drug Use: No Drugs: None Hx Prescription Drug Abuse: No Family History Family History: Reviewed & Not Pertinent, Hypertension Parental Family History Reviewed: Yes Children Family History Reviewed: Yes Sibling(s) Family History Reviewed.: Yes Medication/Allergy Allergies/Adverse Reactions: guaifenesin [From Entex] Allergy (Verified 04/24/18 13:30) phenylephrine HCl [From Entex] Allergy (Verified 04/24/18 13:30) phenylpropanolamine [From Entex] Allergy (Verified 04/24/18 13:30) pseudoephedrine tannate [From Entex] Allergy (Verified 04/24/18 13:30) Review of Systems Constitutional: ABSENT: chills, fever(s), headache(s), weight gain, weight loss Eyes: ABSENT: visual disturbances Ears: ABSENT: hearing changes Cardiovascular: ABSENT: chest pain, dyspnea on exertion, edema, orthropnea, palpitations Respiratory: ABSENT: cough, hemoptysis Gastrointestinal: ABSENT: abdominal pain, constipation, diarrhea, hematemesis, hematochezia, nausea, vomiting Genitourinary: ABSENT: dysuria, hematuria Musculoskeletal: ABSENT: joint swelling Integumentary: ABSENT: rash, wounds Neurological: ABSENT: abnormal gait, abnormal speech, confusion, dizziness, focal weakness, syncope Psychiatric: ABSENT: anxiety, depression, homidical ideation, suicidal ideation Endocrine: ABSENT: cold intolerance, heat intolerance, polydipsia, polyuria Hematologic/Lymphatic: ABSENT: easy bleeding, easy bruising Physical Exam Vital Signs: Temp Pulse Resp BP Pulse Ox 98.3 F 77 16 134/61 H 96 08/31/18 07:22 08/31/18 07:22 08/31/18 07:22 08/31/18 07:22 08/31/18 07:22 Intake & Output 08/30/18 08/31/18 09/01/18 06:59 06:59 06:59 Intake Total 2101 Output Total 880 Balance 1221 Weight 53 kg General appearance: PRESENT: no acute distress, well-developed, well-nourished Head exam: PRESENT: atraumatic, normocephalic Eye exam: PRESENT: conjunctiva pink, EOMI, PERRLA. ABSENT: scleral icterus Ear exam: PRESENT: normal external ear exam Mouth exam: PRESENT: moist, tongue midline Neck exam: ABSENT: carotid bruit, JVD, lymphadenopathy, thyromegaly Respiratory exam: PRESENT: clear to auscultation destiney. ABSENT: rales, rhonchi, wheezes Cardiovascular exam: PRESENT: RRR. ABSENT: diastolic murmur, rubs, systolic murmur Pulses: PRESENT: normal dorsalis pedis pul Vascular exam: PRESENT: normal capillary refill GI/Abdominal exam: PRESENT: normal bowel sounds, soft. ABSENT: distended, guarding, mass, organolmegaly, rebound, tenderness Rectal exam: PRESENT: deferred Extremities exam: PRESENT: full ROM. ABSENT: calf tenderness, clubbing, pedal edema Neurological exam: PRESENT: alert, awake, oriented to person, oriented to place, oriented to time, oriented to situation, CN II-XII grossly intact. ABSENT: motor sensory deficit Psychiatric exam: PRESENT: appropriate affect, normal mood. ABSENT: homicidal ideation, suicidal ideation Skin exam: PRESENT: dry, intact, warm. ABSENT: cyanosis, rash Results Laboratory Results: 08/31/18 06:54 08/31/18 06:54 08/30/18 08/30/18 08/30/18 14:47 14:47 14:47 WBC 9.0 RBC 3.82 L Hgb 13.0 L Hct 37.3 L MCV 98 H MCH 34.0 H MCHC 34.9 RDW 14.3 H Plt Count 164 Seg Neutrophils % 70.8 Lymphocytes % 15.9 Monocytes % 11.8 Eosinophils % 1.0 Basophils % 0.5 Absolute Neutrophils 6.4 Absolute Lymphocytes 1.4 Absolute Monocytes 1.1 Absolute Eosinophils 0.1 Absolute Basophils 0.0 Sodium 141.5 Potassium 3.3 L Chloride 101 Carbon Dioxide 33 H Anion Gap 8 BUN 14 Creatinine 0.70 Est GFR ( Amer) > 60 Est GFR (Non-Af Amer) > 60 Glucose 93 Calcium 9.2 Magnesium Total Bilirubin 1.5 H AST 26 ALT 26 Alkaline Phosphatase 103 Total Protein 5.7 L Albumin 3.6 Prealbumin TSH 2.90 Free T4 Free T3 pg/mL Urine Color Urine Appearance Urine pH Ur Specific [place] Urine Protein Urine Glucose (UA) Urine Ketones Urine Blood Urine Nitrite Ur Leukocyte Esterase Urine WBC (Auto) Urine RBC (Auto) 08/30/18 08/30/18 08/31/18 14:47 15:35 06:54 WBC 12.1 H RBC 3.39 L Hgb 11.7 L Hct 32.9 L MCV 97 MCH 34.6 H MCHC 35.6 RDW 14.5 H Plt Count 143 L Seg Neutrophils % 84.0 H Lymphocytes % 8.2 L Monocytes % 7.2 Eosinophils % 0.1 Basophils % 0.5 Absolute Neutrophils 10.2 H Absolute Lymphocytes 1.0 Absolute Monocytes 0.9 Absolute Eosinophils 0.0 Absolute Basophils 0.1 Sodium Potassium Chloride Carbon Dioxide Anion Gap BUN Creatinine Est GFR ( Amer) Est GFR (Non-Af Amer) Glucose Calcium Magnesium 1.8 Total Bilirubin AST ALT Alkaline Phosphatase Total Protein Albumin Prealbumin 13.7 L TSH Free T4 Free T3 pg/mL Urine Color YELLOW Urine Appearance SLIGHTLY-CLOUDY Urine pH 6.0 Ur Specific [place] 1.011 Urine Protein 30 H Urine Glucose (UA) NEGATIVE Urine Ketones NEGATIVE Urine Blood LARGE H Urine Nitrite NEGATIVE Ur Leukocyte Esterase NEGATIVE Urine WBC (Auto) 5 Urine RBC (Auto) 153 08/31/18 08/31/18 06:54 06:54 WBC RBC Hgb Hct MCV MCH MCHC RDW Plt Count Seg Neutrophils % Lymphocytes % Monocytes % Eosinophils % Basophils % Absolute Neutrophils Absolute Lymphocytes Absolute Monocytes Absolute Eosinophils Absolute Basophils Sodium 142.8 Potassium 3.2 L Chloride 109 H Carbon Dioxide 28 Anion Gap 6 BUN 10 Creatinine 0.63 Est GFR ( Amer) > 60 Est GFR (Non-Af Amer) > 60 Glucose 98 Calcium 8.3 L Magnesium 1.8 Total Bilirubin 1.7 H AST 24 ALT 15 L Alkaline Phosphatase 82 Total Protein 5.1 L Albumin 3.0 L Prealbumin TSH Free T4 1.43 Free T3 pg/mL 3.26 Urine Color Urine Appearance Urine pH Ur Specific [place] Urine Protein Urine Glucose (UA) Urine Ketones Urine Blood Urine Nitrite Ur Leukocyte Esterase Urine WBC (Auto) Urine RBC (Auto) 08/30/18 08/30/18 14:47 14:47 Creatine Kinase 24 L CK-MB (CK-2) 0.46 Troponin I 0.015 Impressions: Chest X-Ray 08/30/18 14:39 IMPRESSION: NO ACUTE FINDINGS. Elbow X-Ray 08/30/18 14:39 IMPRESSION: NO FRACTURE. Head CT 08/30/18 14:39 IMPRESSION: No acute intracranial findings. EVIDENCE OF ACUTE STROKE: NO. Abdomen Ultrasound 08/31/18 00:00 IMPRESSION: 1. Bilateral pleural effusions. Moderate amount of ascites. 2. No evidence of hydronephrosis. 3. The examination is limited due to patient positioning. Assessment & Plan - Diagnosis (1) History of prostate cancer Is this a current diagnosis for this admission?: Yes Plan: History of prostate cancer, I do not believe cancer is what is causing his failure to thrive. He seems to have a strong component of dementia and some component of CIDP. That may be the progressive issues that he is having. Agree with rehab placement. Currently there is no active cancer that I could see that is going on. (2) Lymphomas NEC extranodal/NOS Is this a current diagnosis for this admission?: Yes Plan: History of lymphoma, unlikely that this would return at this point. He had diffuse large B-cell lymphoma that should have recurred within the first 5 years. - Time Time Spent: Greater than 70 Minutes
[2018-08-31] MEDS ORDERED: MEGESTROL ACETATE 20 MG TABLET PO SCH (10:00)
[2018-08-31] MEDS: ENOXAPARIN SODIUM INJ 40 MG/0.4 ML DISP.SYRIN SUBCUT SCH (10:44)
[2018-08-31] MEDS: MULTIVITAMIN TABLET PO SCH (10:46)
[2018-08-31] MEDS: DOCUSATE SODIUM 100 MG CAPSULE PO SCH (10:46)
[2018-08-31] MEDS: MEGESTROL ACETATE 20 MG TABLET PO SCH (10:46)
[2018-08-31] MEDS: ASPIRIN 81 MG TABLET, ENT COATED PO SCH (10:46)
[2018-08-31] MEDS: CALCIUM CARBONATE 500 MG TABLET PO SCH (10:46)
[2018-08-31] MEDS: CARVEDILOL 6.25 MG TABLET PO SCH ×2 (10:46→21:18)
[2018-08-31] MEDS: FLUDROCORTISONE ACETATE 0.1 MG TABLET PO SCH (10:47)
[2018-08-31] MEDS: HYDROCORTISONE 10 MG TABLET PO SCH ×2 (10:47→21:18)
--- NOTE | 2018-08-31 11:26 | RADIOLOGY REPORT (SQ) ---
EXAM DESCRIPTION: CAROTID DOPPLER COMPLETED DATE/TIME: 08/31/2018 10:14 am REASON FOR STUDY: recurent falls COMPARISON: None. TECHNIQUE: Grayscale ultrasound, Doppler velocity and spectra, and color Doppler images acquired of the extra-cranial carotid and vertebral arteries. Images stored on PACS. LIMITATIONS: None. FINDINGS: RIGHT CAROTID CCA Velocities: Within normal limits. ICA Velocities Peak systolic 0.46 m/s. End diastolic 0.14 m/s. Proximal ICA/CCA peak systolic ratio 1.0. Mild heterogeneous plaque in the bulb and proximal ICA. LEFT CAROTID CCA Velocities: Within normal limits. ICA Velocities Peak systolic 0.68 m/s. End diastolic 0.19 m/s. Proximal ICA/CCA peak systolic ratio 1.2. Mild heterogeneous plaque in the bulb and proximal ICA. VERTEBRAL ARTERIES: Antegrade flow. Normal waveforms. SUBCLAVIAN ARTERIES: Not imaged. OTHER: No other significant finding. IMPRESSION: NO HEMODYNAMICALLY SIGNIFICANT STENOSIS. COMMENT: Quality ID #[id number]: Velocity criteria are extrapolated from the diameter data as defined by t he Society of Radiologists in Ultrasound Consensus Conference. Radiology 2003: 229; 340-346. TECHNICAL DOCUMENTATION: JOB ID: [id number] [employer]- All Rights Reserved Reading location - IP/workstation name: [email or web address]
--- NOTE | 2018-08-31 14:03 | PDOC PROGRESS REPORT ---
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 Patient's who is accompanying him stating that he does not have any energy, low appetite, denies weakness, his falls are due to feeling weak in his legs. States that before falling he feels like his legs are giving out, denies any palpitation, lightheadedness, chest pain, vertigo seeding falls, he denies loss of consciousness post fall. denies witnessing any convulsions, confusion post fall. And has been on prednisone since 2011 recently was switched to hydrocortisone and fludrocortisone with no apparent changes in his weakness. He denies any fever, chills, chest pain, shortness of breath, nausea, vomiting, diarrhea, constipation or any urinary symptoms. 3 months ago he had MRI of brain which did not show any acute abnormality except for changes consistent with aging. He used to be independent but recently has been dependent on his 's help due to recurrent falls and worsening weakness. 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 CT head negative for any acute abnormalities. Chest x-ray negative for any acute abnormalities. CBC within normal limits, CMP within normal limits except for low potassium, UA positive for hematuria. 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 He presented to ED on 08/25/[address] head without contrast was negative for any acute abnormalities. CT cervical spine negative for any acute changes. 08/31/2018. No acute events overnight. Patient is stating that his appetite has improved mildly since being started on Megace. Physical therapy today and recommendation is inpatient rehab. Oncology was consulted and they think that he has recurrence of his cancer and his failure to thrive could be down to his CIDP and worsening dementia. Recommending rehab. He denies any fever, chills, nausea, vomiting, diarrhea, constipation or any urinary symptoms. Reason For Visit: RECURRENT FALLS Physical Exam Vital Signs: Temp Pulse Resp BP Pulse Ox 98.0 F 84 15 133/69 H 94 02/25/19 11:22 08/31/18 13:03 08/31/18 13:03 08/31/18 11:22 08/31/18 13:03 Intake & Output 08/30/18 08/31/18 09/01/18 06:59 06:59 06:59 Intake Total 2101 Output Total 880 Balance 1221 Weight 53 kg General appearance: PRESENT: no acute distress, thin, well-nourished Respiratory exam: PRESENT: clear to auscultation destiney. ABSENT: rales, rhonchi, wheezes Cardiovascular exam: PRESENT: RRR. ABSENT: diastolic murmur, rubs, systolic mu rmur GI/Abdominal exam: PRESENT: normal bowel sounds, soft. ABSENT: distended, guarding, mass, organolmegaly, rebound, tenderness Extremities exam: PRESENT: full ROM, other - Extensive ecchymosis of his bilateral lower extremity.. ABSENT: calf tenderness, clubbing, pedal edema Results Laboratory Results: 08/31/18 06:54 08/31/18 06:54 08/30/18 08/30/18 08/30/18 14:47 14:47 14:47 WBC 9.0 RBC 3.82 L Hgb 13.0 L Hct 37.3 L MCV 98 H MCH 34.0 H MCHC 34.9 RDW 14.3 H Plt Count 164 Seg Neutrophils % 70.8 Lymphocytes % 15.9 Monocytes % 11.8 Eosinophils % 1.0 Basophils % 0.5 Absolute Neutrophils 6.4 Absolute Lymphocytes 1.4 Absolute Monocytes 1.1 Absolute Eosinophils 0.1 Absolute Basophils 0.0 Sodium 141.5 Potassium 3.3 L Chloride 101 Carbon Dioxide 33 H Anion Gap 8 BUN 14 Creatinine 0.70 Est GFR ( Amer) > 60 Est GFR (Non-Af Amer) > 60 Glucose 93 Calcium 9.2 Magnesium Total Bilirubin 1.5 H AST 26 ALT 26 Alkaline Phosphatase 103 Total Protein 5.7 L Albumin 3.6 Prealbumin TSH 2.90 Free T4 Free T3 pg/mL Urine Color Urine Appearance Urine pH Ur Specific Aurora Urine Protein Urine Glucose (UA) Urine Ketones Urine Blood Urine Nitrite Ur Leukocyte Esterase Urine WBC (Auto) Urine RBC (Auto) 08/30/18 08/30/18 08/31/18 14:47 15:35 06:54 WBC 12.1 H RBC 3.39 L Hgb 11.7 L Hct 32.9 L MCV 97 MCH 34.6 H MCHC 35.6 RDW 14.5 H Plt Count 143 L Seg Neutrophils % 84.0 H Lymphocytes % 8.2 L Monocytes % 7.2 Eosinophils % 0.1 Basophils % 0.5 Absolute Neutrophils 10.2 H Absolute Lymphocytes 1.0 Absolute Monocytes 0.9 Absolute Eosinophils 0.0 Absolute Basophils 0.1 Sodium Potassium Chloride Carbon Dioxide Anion Gap BUN Creatinine Est GFR ( Amer) Est GFR (Non-Af Amer) Glucose Calcium Magnesium 1.8 Total Bilirubin AST ALT Alkaline Phosphatase Total Protein Albumin Prealbumin 13.7 L TSH Free T4 Free T3 pg/mL Urine Color YELLOW Urine Appearance SLIGHTLY-CLOUDY Urine pH 6.0 Ur Specific Aurora 1.011 Urine Protein 30 H Urine Glucose (UA) NEGATIVE Urine Ketones NEGATIVE Urine Blood LARGE H Urine Nitrite NEGATIVE Ur Leukocyte Esterase NEGATIVE Urine WBC (Auto) 5 Urine RBC (Auto) 153 08/31/18 08/31/18 06:54 06:54 WBC RBC Hgb Hct MCV MCH MCHC RDW Plt Count Seg Neutrophils % Lymphocytes % Monocytes % Eosinophils % Basophils % Absolute Neutrophils Absolute Lymphocytes Absolute Monocytes Absolute Eosinophils Absolute Basophils Sodium 142.8 Potassium 3.2 L Chloride 109 H Carbon Dioxide 28 Anion Gap 6 BUN 10 Creatinine 0.63 Est GFR ( Amer) > 60 Est GFR (Non-Af Amer) > 60 Glucose 98 Calcium 8.3 L Magnesium 1.8 Total Bilirubin 1.7 H AST 24 ALT 15 L Alkaline Phosphatase 82 Total Protein 5.1 L Albumin 3.0 L Prealbumin TSH Free T4 1.43 Free T3 pg/mL 3.26 Urine Color Urine Appearance Urine pH Ur Specific Aurora Urine Protein Urine Glucose (UA) Urine Ketones Urine Blood Urine Nitrite Ur Leukocyte Esterase Urine WBC (Auto) Urine RBC (Auto) 08/30/18 15:35 Clean Catch Midstream Urine Culture - Final Mixed Urogenital Enma 08/30/18 08/30/18 14:47 14:47 Creatine Kinase 24 L CK-MB (CK-2) 0.46 Troponin I 0.015 Impressions: Chest X-Ray 08/30/18 14:39 IMPRESSION: NO ACUTE FINDINGS. Elbow X-Ray 08/30/18 14:39 IMPRESSION: NO FRACTURE. Head CT 08/30/18 14:39 IMPRESSION: No acute intracranial findings. EVIDENCE OF ACUTE STROKE: NO. Abdomen Ultrasound 08/31/18 00:00 IMPRESSION: 1. Bilateral pleural effusions. Moderate amount of ascites. 2. No evidence of hydronephrosis. 3. The examination is limited due to patient positioning. Carotid Doppler Study 08/31/18 00:00 IMPRESSION: NO HEMODYNAMICALLY SIGNIFICANT STENOSIS. Assessment & Plan - Diagnosis (1) Recurrent falls Is this a current diagnosis for this admission?: Yes Plan: Most likely due to muscular deconditioning/worsening dementia and failure to thrive. Has been on chronic steroids for his CIDP. Admit to telemetry, 2D echo, carotid Doppler. PT/OT. Would likely benefit from inpatient rehab. CT head, troponins, ECG negative for any acute abnormalities. (2) Hypokalemia Is this a current diagnosis for this admission?: Yes Plan: Replaced. BMP tomorrow. (3) Malnutrition Qualifiers: Protein-calorie malnutrition severity: moderate Is this a current diagnosis for this admission?: Yes Plan: History of prostate cancer/non-Hodgkin's lymphoma. Consult oncology to workup for any recurrence of underlying malignancies. Meanwhile we will consult hotel maintenance technician and will start on appetite stimulants. (4) Anorexia Is this a current diagnosis for this admission?: Yes Plan: Continue Magace, Multicultural Manager Consult. (5) CIDP (chronic inflammatory demyelinating polyneuropathy) Is this a current diagnosis for this admission?: Yes Plan: Continue hydrocortisone. (6) History of prostate cancer Is this a current diagnosis for this admission?: Yes Plan: Status post prostatectomy. Neurology consulted. They do not think he has any recurrence. (7) Hypertension Is this a current diagnosis for this admission?: Yes Plan: Normotensive. Continue beta-blockers. (8) Non Hodgkin's lymphoma Qualifiers: Non-Hodgkin lymphoma type: unspecified type Is this a current diagnosis for this admission?: No (9) Hematuria Is this a current diagnosis for this admission?: Yes Plan: Renal ultrasound. UA positive for RBC. Note: Has history of prostate cancer status post prostatectomy.
[2018-09-01] MEDS: LANSOPRAZOLE 30 MG TAB.RAP.DR PO SCH (05:06)
[2018-09-01 09:32] LABS: ABSOLUTE BASOPHILS # (AUTO) 0.1 10^3/uL (0.0-0.2); ABSOLUTE EOSINOPHILS # (AUTO) 0.1 10^3/uL (0.0-0.6); ABSOLUTE LYMPHOCYTES (AUTO) 1.1 10^3/uL (0.5-4.7); ABSOLUTE MONOCYTES (AUTO) 0.9 10^3/uL (0.1-1.4); ABSOLUTE NEUT (AUTO) 8.5 10^3/uL (1.7-8.2); BASOPHILS % (AUTO) 0.7 % (0-2); EOSINOPHILS % (AUTO) 1.2 % (0-6); HEMATOCRIT 29.7 % (37.9-51.0); HEMOGLOBIN 10.8 g/dL (13.5-17.0); LYMPHOCYTES % (AUTO) 9.9 % (13-45); MEAN CORPUSCULAR HEMOGLOBIN 36.6 pg (27.0-33.4); MEAN CORPUSCULAR HGB CONC 36.5 g/dL (32.0-36.0); MEAN CORPUSCULAR VOLUME 100 fl (80-97); MONOCYTES % (AUTO) 8.9 % (3-13); PLATELET COUNT 132 10^3/uL (150-450); RED BLOOD COUNT 2.96 10^6/uL (4.35-5.55); RED CELL DISTRIBUTION WIDTH 14.6 % (11.5-14.0); SEGMENTED NEUTROPHILS % (AUTO) 79.3 % (42-78); TOTAL CELLS COUNTED % (AUTO) 100 %; WHITE BLOOD COUNT 10.7 10^3/uL (4.0-10.5)
[2018-09-01 09:47] LABS: BLOOD UREA NITROGEN 10 mg/dL (7-20); CALCIUM 8.6 mg/dL (8.4-10.2); CARBON DIOXIDE 27 mmol/L (22-30); CHLORIDE 111 mmol/L (98-107); GLUCOSE 94 mg/dL (75-110); SODIUM 143.9 mmol/L (137-145)
[2018-09-01 09:48] LABS: ALANINE AMINOTRANSFERASE 24 U/L (21-72); ALBUMIN 2.9 g/dL (3.5-5.0); ALKALINE PHOSPHATASE 81 U/L (38-126); ANION GAP 6 (5-19); ASPARTATE AMINO TRANSFERASE 17 U/L (17-59); BILIRUBIN,DIRECT 0.1 mg/dL (0.0-0.4); BILIRUBIN,TOTAL 1.2 mg/dL (0.2-1.3); TOTAL PROTEIN 4.9 g/dL (6.3-8.2)
[2018-09-01 10:14] LABS: POTASSIUM 2.8 mmol/L (3.6-5.0)
[2018-09-01] MEDS ORDERED: POTASSIUM CHLORIDE 10 MEQ CAPSULE.ER PO ONE (11:00)
[2018-09-01] MEDS: POTASSIUM CHLORIDE 20 MEQ/50 ML RTU IV SCH ×2 (11:18→13:50)
[2018-09-01] MEDS: DOCUSATE SODIUM 100 MG CAPSULE PO SCH (11:18)
[2018-09-01] MEDS: CARVEDILOL 6.25 MG TABLET PO SCH ×2 (11:19→21:11)
[2018-09-01] MEDS: MULTIVITAMIN TABLET PO SCH (11:19)
[2018-09-01] MEDS: CALCIUM CARBONATE 500 MG TABLET PO SCH (11:19)
[2018-09-01] MEDS: ASPIRIN 81 MG TABLET, ENT COATED PO SCH (11:22)
[2018-09-01] MEDS: ENOXAPARIN SODIUM INJ 40 MG/0.4 ML DISP.SYRIN SUBCUT SCH (11:22)
[2018-09-01] MEDS: MEGESTROL ACETATE 20 MG TABLET PO SCH (11:25)
[2018-09-01] MEDS: FLUDROCORTISONE ACETATE 0.1 MG TABLET PO SCH (11:26)
[2018-09-01] MEDS: HYDROCORTISONE 10 MG TABLET PO SCH ×2 (11:27→21:11)
[2018-09-01] MEDS: DEXTROSE 5%-NORMAL SALINE 1,000 ML IV PRN ×2 (11:43→23:15)
[2018-09-01 16:01] LABS: ANION GAP 6 (5-19); BLOOD UREA NITROGEN 11 mg/dL (7-20); CALCIUM 8.8 mg/dL (8.4-10.2); CARBON DIOXIDE 25 mmol/L (22-30); CHLORIDE 114 mmol/L (98-107); GLUCOSE 96 mg/dL (75-110); POTASSIUM 3.6 mmol/L (3.6-5.0); SODIUM 144.9 mmol/L (137-145)
--- NOTE | 2018-09-01 18:09 | PDOC PROGRESS REPORT ---
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 The patient was seen on morning rounds. He was found resting in bed comfortably on room air. He appears to be alert and oriented to self, place, and situation at this time. Patient is slightly agitated as he is needing assistance to bedpan for bowel movement. Otherwise, he reports that he is feeling well today. He denies fever, headache, chest pain, palpitations, dyspnea, orthopnea, abdominal pain, nausea, vomiting, and diarrhea. He has no questions or concerns at this time. No concerns per nursing. Reason For Visit: HYPOKALEMIA,RECENT FALLS Physical Exam Vital Signs: Temp Pulse Resp BP Pulse Ox 97.9 F 76 17 131/66 H 98 09/01/18 16:03 09/01/18 16:03 09/01/18 16:03 09/01/18 16:03 09/01/18 16:03 Intake & Output 08/31/18 09/01/18 09/02/18 06:59 06:59 06:59 Intake Total 2101 1506 1953 Output Total 880 666 100 Balance 3515 485 5934 Weight 53 kg 53 kg General appearance: PRESENT: no acute distress, thin, well-developed Head exam: PRESENT: atraumatic, normocephalic Eye exam: PRESENT: conjunctiva pink, EOMI, PERRLA. ABSENT: scleral icterus Mouth exam: PRESENT: moist, tongue midline Respiratory exam: PRESENT: clear to auscultation destiney, symmetrical, unlabored. ABSENT: rales, rhonchi, wheezes Cardiovascular exam: PRESENT: RRR, +S1, +S2. ABSENT: diastolic murmur, rubs, systolic murmur Pulses: PRESENT: normal dorsalis pedis pul Vascular exam: PRESENT: normal capillary refill GI/Abdominal exam: PRESENT: normal bowel sounds, soft. ABSENT: distended, guarding, mass, organolmegaly, rebound, tenderness Rectal exam: PRESENT: deferred Extremities exam: PRESENT: full ROM - Moves all extremities spontaneously; almond blancher strong and equal. ABSENT: calf tenderness, clubbing, pedal edema Neurological exam: PRESENT: alert, awake, oriented to person, oriented to place, oriented to situation, CN II-XII grossly intact. ABSENT: motor sensory deficit Psychiatric exam: PRESENT: appropriate affect, normal mood. ABSENT: homicidal ideation, suicidal ideation Skin exam: PRESENT: dry, intact, warm, other - Scattered ecchymosis all extremities. ABSENT: cyanosis, rash Results Laboratory Results: 09/01/18 09:16 09/01/18 14:50 09/01/18 09/01/18 09/01/18 07:19 07:19 09:16 WBC Cancelled RBC Cancelled Hgb Cancelled Hct Cancelled MCV Cancelled MCH Cancelled MCHC Cancelled RDW Cancelled Plt Count Cancelled Seg Neutrophils % Cancelled Lymphocytes % Cancelled Monocytes % Cancelled Eosinophils % Cancelled Basophils % Cancelled Absolute Neutrophils Cancelled Absolute Lymphocytes Cancelled Absolute Monocytes Cancelled Absolute Eosinophils Cancelled Absolute Basophils Cancelled Sodium Cancelled 143.9 Potassium Cancelled 2.8 L* Chloride Cancelled 111 H Carbon Dioxide Cancelled 27 Anion Gap Cancelled 6 BUN Cancelled 10 Creatinine Cancelled 0.64 Est GFR ( Amer) Cancelled > 60 Est GFR (Non-Af Amer) Cancelled > 60 Glucose Cancelled 94 Calcium Cancelled 8.6 Magnesium Cancelled 1.6 Total Bilirubin Cancelled 1.2 AST Cancelled 17 ALT Cancelled 24 Alkaline Phosphatase Cancelled 81 Total Protein Cancelled 4.9 L Albumin Cancelled 2.9 L 09/01/18 09/01/18 09:16 14:50 WBC 10.7 H RBC 2.96 L Hgb 10.8 L Hct 29.7 L MCV 100 H MCH 36.6 H MCHC 36.5 H RDW 14.6 H Plt Count 132 L Seg Neutrophils % 79.3 H Lymphocytes % 9.9 L Monocytes % 8.9 Eosinophils % 1.2 Basophils % 0.7 Absolute Neutrophils 8.5 H Absolute Lymphocytes 1.1 Absolute Monocytes 0.9 Absolute Eosinophils 0.1 Absolute Basophils 0.1 Sodium 144.9 Potassium 3.6 Chloride 114 H Carbon Dioxide 25 Anion Gap 6 BUN 11 Creatinine 0.67 Est GFR ( Amer) > 60 Est GFR (Non-Af Amer) > 60 Glucose 96 Calcium 8.8 Magnesium Total Bilirubin AST ALT Alkaline Phosphatase Total Protein Albumin 02/24/19 02/24/19 14:47 14:47 Creatine Kinase 24 L CK-MB (CK-2) 0.46 Troponin I 0.015 Impressions: Chest X-Ray 08/30/18 14:39 IMPRESSION: NO ACUTE FINDINGS. Elbow X-Ray 08/30/18 14:39 IMPRESSION: NO FRACTURE. Head CT 08/30/18 14:39 IMPRESSION: No acute intracranial findings. EVIDENCE OF ACUTE STROKE: NO. Abdomen Ultrasound 08/31/18 00:00 IMPRESSION: 1. Bilateral pleural effusions. Moderate amount of ascites. 2. No evidence of hydronephrosis. 3. The examination is limited due to patient positioning. Carotid Doppler Study 08/31/18 00:00 IMPRESSION: NO HEMODYNAMICALLY SIGNIFICANT STENOSIS. Assessment & Plan - Diagnosis (1) Hypokalemia Is this a current diagnosis for this admission?: Yes Plan: Recurrent hypokalemia; likely secondary to poor p.o. intake Was admitted with potassium of 3.3; has trended downward despite replacement (3.3--> 3.2-> 2.8) Magnesium is nml Will replace with 40 M EQ's p.o. potassium and 40 M EQ's K riders. Encourage p.o. intake. We will continue to monitor closely. (2) Recurrent falls Is this a current diagnosis for this admission?: Yes Plan: Multifactorial secondary to muscular deconditioning, COPD, worsening dementia, hypokalemia, and failure to thrive. CT head, carotid doppler, troponins, and ECG negative for any acute abnormalities. Echocardiogram is pending. Patient is admitted to the medical floor and continuous cardiac telemetry. We will monitor electrolytes and replace as necessary. PT/OT is consulted. Discharge planning is consulted. Anticipate SNF at discharge (Short term -> [facility]). (3) Anorexia Is this a current diagnosis for this admission?: Yes Plan: Likely secondary to age/chronic illnesses; BMI is low at 17.8 Continue Megace. Registered dietitian is consulted. (4) CIDP (chronic inflammatory demyelinating polyneuropathy) Is this a current diagnosis for this admission?: Yes Plan: Continue home dose of hydrocortisone. (5) Hypertension Is this a current diagnosis for this admission?: Yes Plan: Normotensive at present. Continue carvedilol. (6) Malnutrition Qualifiers: Protein-calorie malnutrition severity: moderate Is this a current diagnosis for this admission?: Yes Plan: Patient is noted to have a BMI of 17.8, loss of subcutaneous fat and muscle mass. History of prostate cancer/non-Hodgkin's lymphoma. Likely related to his advancing dementia and CIDP. Consult oncology to workup for any recurrence of underlying malignancies; Dr. Hilario does not find evidence of current malignancy as a source of his malnutrition. Continue Megace. Registered dietitian is consulted. (7) Hematuria Is this a current diagnosis for this admission?: Yes Plan: Likely secondary to Desai catheter placement. Renal ultrasound with negative for hydronephrosis or other suspicious renal findings. Bladder was not, now. Incidentally found bilateral pleural effusions and moderate ascites. UA positive for RBCs; no evidence of infection. Urine culture shows mixed urogenital dee. We will remove Desai. Continue to monitor urine output. No indications for antibiotics at this time. (8) History of prostate cancer Is this a current diagnosis for this admission?: Yes Plan: Status post prostatectomy. Oncology consulted by previous provider; they do not think he has any recurrence. (9) Non Hodgkin's lymphoma Qualifiers: Non-Hodgkin lymphoma type: unspecified type Is this a current diagnosis for this admission?: No Plan: Hx of lymphoma; Oncology has been consulted, no indications of reoccurrence at this time. (10) CHF (congestive heart failure) Qualifiers: Heart failure type: unspecified Heart failure chronicity: unspecified Qualified Code(s): I50.9 - Heart failure, unspecified Is this a current diagnosis for this admission?: Yes Plan: Pt was found to have elevated proBNP of 1690. No known hx of CHF. No echo on file. Will obtain echocardiogram to assess for CHF severity. Continue carvedilol and daily Aspirin therapy. Daily weights. Diet is liberalized secondary to protein calorie malnutrition; consider sodium and/or fluid restriction. - Time Time Spent with patient: 15-24 minutes Medications reviewed and adjusted accordingly: Yes Anticipated discharge: SNF Within: within 48 hours - Inpatient Certification Based on my medical assessment, after consideration of the patient's comorb idities, presenting symptoms, or acuity I expect that the services needed warrant INPATIENT care.: Yes I certify that my determination is in accordance with my understanding of Medicare's requirements for reasonable and necessary INPATIENT services [42 CFR 412.3e].: Yes Medical Necessity: Need For IV Fluids, Need For Continuous Telemetry Monitoring, Risk of Diagnosis Which Will Require Inpatient Eval/Care/Monitoring
[2018-09-02] MEDS: LANSOPRAZOLE 30 MG TAB.RAP.DR PO SCH (05:16)
[2018-09-02] MEDS: DOCUSATE SODIUM 100 MG CAPSULE PO SCH (10:59)
[2018-09-02] MEDS: CARVEDILOL 6.25 MG TABLET PO SCH ×2 (10:59→21:30)
[2018-09-02] MEDS: MEGESTROL ACETATE 20 MG TABLET PO SCH (10:59)
[2018-09-02] MEDS: MULTIVITAMIN TABLET PO SCH (11:00)
[2018-09-02] MEDS: CALCIUM CARBONATE 500 MG TABLET PO SCH (11:00)
[2018-09-02] MEDS: FLUDROCORTISONE ACETATE 0.1 MG TABLET PO SCH (11:00)
[2018-09-02] MEDS: ASPIRIN 81 MG TABLET, ENT COATED PO SCH (11:00)
[2018-09-02] MEDS: HYDROCORTISONE 10 MG TABLET PO SCH ×2 (11:00→21:31)
[2018-09-02] MEDS: ENOXAPARIN SODIUM INJ 40 MG/0.4 ML DISP.SYRIN SUBCUT SCH (11:01)
[2018-09-02 11:21] LABS: HEMATOCRIT 28.3 % (37.9-51.0); HEMOGLOBIN 10.2 g/dL (13.5-17.0); MEAN CORPUSCULAR HEMOGLOBIN 36.8 pg (27.0-33.4); MEAN CORPUSCULAR HGB CONC 36.1 g/dL (32.0-36.0); MEAN CORPUSCULAR VOLUME 102 fl (80-97); PLATELET COUNT 136 10^3/uL (150-450); RED BLOOD COUNT 2.78 10^6/uL (4.35-5.55); RED CELL DISTRIBUTION WIDTH 14.6 % (11.5-14.0); WHITE BLOOD COUNT 10.6 10^3/uL (4.0-10.5)
[2018-09-02 11:48] LABS: ANION GAP 6 (5-19); BLOOD UREA NITROGEN 11 mg/dL (7-20); CALCIUM 8.5 mg/dL (8.4-10.2); CARBON DIOXIDE 24 mmol/L (22-30); CHLORIDE 113 mmol/L (98-107); GLUCOSE 85 mg/dL (75-110); PHOSPHORUS 2.8 mg/dL (2.5-4.5); POTASSIUM 3.2 mmol/L (3.6-5.0); SODIUM 143.4 mmol/L (137-145)
--- NOTE | 2018-09-02 16:18 | PDOC PROGRESS REPORT ---
Subjective Progress Note for:: 09/02/18 Subjective:: This is a 83 years old male patient with past medical history of non- Hodgkin's lymphoma status post chemotherapy and bone marrow transplant now in remission, history of prostate cancer status post prostatectomy, dementia, history of chronic inflammatory demyelinating neuropathy and steroid dependent, brought from home with chief complaint of debility weakness and recurrent falls. Dentition patient also found to have hypokalemia which is now corrected. Patient is scheduled for discharge to rehab on Friday. Reason For Visit: HYPOKALEMIA,RECENT FALLS Physical Exam Vital Signs: Temp Pulse Resp BP Pulse Ox 97.8 F 77 19 142/63 H 95 09/02/18 12:00 09/02/18 12:00 09/02/18 12:00 09/02/18 12:00 09/02/18 12:00 Intake & Output 09/01/18 09/02/18 09/03/18 06:59 06:59 06:59 Intake Total 1506 3436 Output Total 666 1200 Balance 840 2236 Weight 53 kg 55.8 kg General appearance: PRESENT: no acute distress Head exam: PRESENT: atraumatic Eye exam: PRESENT: conjunctiva pink Neck exam: ABSENT: carotid bruit, JVD, lymphadenopathy, thyromegaly Respiratory exam: PRESENT: clear to auscultation destiney. ABSENT: rales, rhonchi, wheezes Cardiovascular exam: PRESENT: RRR. ABSENT: diastolic murmur, rubs, systolic murmur Neurological exam: PRESENT: alert, awake Results Laboratory Results: 09/02/18 10:44 09/02/18 10:44 09/02/18 09/02/18 09/02/18 01:10 10:44 10:44 WBC 10.6 H RBC 2.78 L Hgb 10.2 L Hct 28.3 L MCV 102 H MCH 36.8 H MCHC 36.1 H RDW 14.6 H Plt Count 136 L Sodium 143.4 Potassium 3.2 L Chloride 113 H Carbon Dioxide 24 Anion Gap 6 BUN 11 Creatinine 0.59 Est GFR ( Amer) > 60 Est GFR (Non-Af Amer) > 60 Glucose 85 Calcium 8.5 Phosphorus 2.8 Magnesium 1.5 L Stool Occult Blood NEGATIVE 08/30/18 08/30/18 14:47 14:47 Creatine Kinase 24 L CK-MB (CK-2) 0.46 Troponin I 0.015 Impressions: Chest X-Ray 08/30/18 14:39 IMPRESSION: NO ACUTE FINDINGS. Elbow X-Ray 08/30/18 14:39 IMPRESSION: NO FRACTURE. Head CT 08/30/18 14:39 IMPRESSION: No acute intracranial findings. EVIDENCE OF ACUTE STROKE: NO. Abdomen Ultrasound 08/31/18 00:00 IMPRESSION: 1. Bilateral pleural effusions. Moderate amount of ascites. 2. No evidence of hydronephrosis. 3. The examination is limited due to patient positioning. Carotid Doppler Study 08/31/18 00:00 IMPRESSION: NO HEMODYNAMICALLY SIGNIFICANT STENOSIS. Assessment & Plan - Diagnosis (1) Adult failure to thrive Is this a current diagnosis for this admission?: Yes Plan: Nutritional supplement and also patient started on Megace. (2) Recurrent falls Is this a current diagnosis for this admission?: Yes Plan: Due to debility and deconditioning. Patient would benefit from short-term inpatient rehab. (3) Hypokalemia Is this a current diagnosis for this admission?: Yes Plan: Resolved (4) Hematuria Is this a current diagnosis for this admission?: Yes Plan: Stable. (5) Chronic inflammatory demyelinating neuropathy Is this a current diagnosis for this admission?: Yes Plan: Patient has been on Solu-Cortef and fludrocortisone since 2011. Patient is steroid dependent. (6) History of prostate cancer Is this a current diagnosis for this admission?: Yes Plan: In remission (7) History of non-Hodgkin's lymphoma Is this a current diagnosis for this admission?: Yes Plan: Remission
--- NOTE | 2018-09-03 00:13 | XCELERA REPORT ---
[address] [address] Transthoracic Echocardiogram Report Name: JOSIE TRUONG Age: 83 yrs Gender: Male : 1935 Patient Status: Inpatient Patient Location: [address] [place] [address] Study Date: 08/31/2018 10:06 AM Procedure: A two-dimensional transthoracic echocardiogram with color flow and Doppler was performed. The study was technically difficult with many images being suboptimal in quality. Reason For Study: MURMUR Ordering Physician: JONAS AMANDA Performed By: Luci Goetz Interpretation Summary The left ventricle is normal in size. Doppler measurements suggest impaired left ventricular relaxation, which is associated with grade I/IV or mild diastolic dysfunction There is no thrombus. LV EF is > than 60% The left ventricular ejection fraction is within normal limits. The left ventricular wall motion is normal. There is no ventricular septal defect visualized. The right ventricle is grossly normal size. The right atrium is normal. The left atrial size is normal. The interatrial septum is intact with no evidence for an atrial septal defect. There is no Doppler evidence for an interatrial shunt There is mild mitral annular calcification. There is mild mitral leaflet calcification. There is no evidence of mitral valve prolapse. There is no vegetation seen on the mitral valve. There is no mitral valve stenosis. There is a mild to moderate amount of mitral regurgitation There is no aortic valvular vegetation. There is no aortic valve stenosis There is aortic sclerosis without aortic stenosis. There is no LVOT obstruction. There is a mild amount of aortic regurgitation There is no tricuspid stenosis. There is a trace to mild amount of tricuspid regurgitation There is mild pulmonary hypertension by echo [id number] to 39mm of Hg , with RA mean of 5 to 10. There is no pulmonic valvular stenosis. There is a trace amount of pulmonic regurgitation The aortic root is normal size. The inferior vena cava appeared normal and decreased > 50% with respiration (RAP 5-10 mmHg) There is no pericardial effusion. MMode/2D Measurements & Calculations IVSd: 0.84 cm LVIDd: 4.8 cm FS: 25.5 % Ao root diam: 2.3 cm LVIDs: 3.6 cm EDV(Teich): 106.7 ml Ao root area: 4.3 cm2 LVPWd: 0.78 cm ESV(Teich): 53.2 ml EF(Teich): 50.1 % Doppler Measurements & Calculations MV E max rhys: MV dec slope: Ao V2 max: AI max rhys: 70.1 cm/sec 149.8 cm/sec 495.4 cm/sec MV A max rhys: 353.4 cm/sec2 Ao max P.0 mmHgAI max P.2 mmHg 93.4 cm/sec MV dec time: AI dec slope: MV E/A: 0.75 0.20 sec 289.2 cm/sec2 AI P1/2t: 501.7 msec LV V1 max PG: PA V2 max: PI end-d rhys: TR max rhys: 4.6 mmHg 127.6 cm/sec 135.9 cm/sec 267.5 cm/sec LV V1 max: PA max P.5 mmHg TR max P.6 mmHg 107.4 cm/sec LV dP/dt: 1870 mmHg/s Left Ventricle The left ventricle is normal in size. There is normal left ventricular wall thickness. LV EF is > than 60%. The left ventricular ejection fraction is within normal limits. Doppler measurements suggest impaired left ventricular relaxation, which is associated with grade I/IV or mild diastolic dysfunction. The left ventricular wall motion is normal. There is no thrombus. There is no ventricular septal defect visualized. Right Ventricle The right ventricle is grossly normal size. The right ventricle is not well visualized secondary to technical limitations. Atria The right atrium is normal. The left atrial size is normal. The interatrial septum is intact with no evidence for an atrial septal defect. There is no Doppler evidence for an interatrial shunt. Mitral Valve There is mild mitral annular calcification. There is mild mitral leaflet calcification. There is no evidence of mitral valve prolapse. There is no vegetation seen on the mitral valve. There is no mitral valve stenosis. There is a mild to moderate amount of mitral regurgitation. Aortic Valve There is no aortic valvular vegetation. There is no aortic valve stenosis. There is aortic sclerosis without aortic stenosis. There is no LVOT obstruction. There is a mild amount of aortic regurgitation. Tricuspid Valve There is no tricuspid stenosis. There is a trace to mild amount of tricuspid regurgitation. There is mild pulmonary hypertension by echo. [id number] to 39mm of Hg , with RA mean of 5 to 10. Pulmonic Valve There is no pulmonic valvular stenosis. There is a trace amount of pulmonic regurgitation. Great Vessels The aortic root is normal size. The inferior vena cava appeared normal and decreased > 50% with respiration (RAP 5-10 mmHg). Effusions There is no pericardial effusion. : JONAS AMANDA > Rachel Garcia
[2018-09-03] MEDS: DEXTROSE 5%-NORMAL SALINE 1,000 ML IV PRN ×2 (03:23→21:54)
[2018-09-03] MEDS: LANSOPRAZOLE 30 MG TAB.RAP.DR PO SCH (05:23)
[2018-09-03] MEDS: CALCIUM CARBONATE 500 MG TABLET PO SCH (09:39)
[2018-09-03] MEDS: MEGESTROL ACETATE 20 MG TABLET PO SCH (09:39)
[2018-09-03] MEDS: DOCUSATE SODIUM 100 MG CAPSULE PO SCH (09:39)
[2018-09-03] MEDS: CARVEDILOL 6.25 MG TABLET PO SCH ×2 (09:39→21:56)
[2018-09-03] MEDS: MULTIVITAMIN TABLET PO SCH (09:39)
[2018-09-03] MEDS: ASPIRIN 81 MG TABLET, ENT COATED PO SCH (09:39)
[2018-09-03] MEDS: HYDROCORTISONE 10 MG TABLET PO SCH ×2 (09:40→21:55)
[2018-09-03] MEDS: ENOXAPARIN SODIUM INJ 40 MG/0.4 ML DISP.SYRIN SUBCUT SCH (09:41)
[2018-09-03] MEDS: FLUDROCORTISONE ACETATE 0.1 MG TABLET PO SCH (09:42)
[2018-09-03] MEDS ORDERED: POTASSIUM CHLORIDE 10 MEQ CAPSULE.ER PO ONE (13:14)
--- NOTE | 2018-09-03 16:44 | PDOC PROGRESS REPORT ---
Subjective Progress Note for:: 09/03/18 Subjective:: I seen patient resting in bed comfortably. He is awake alert and more conversant. Patient's potential discharge to rehab center tomorrow. Reason For Visit: HYPOKALEMIA,RECENT FALLS Physical Exam Vital Signs: Temp Pulse Resp BP Pulse Ox 98.5 F 66 16 162/68 H 96 09/03/18 11:57 09/03/18 14:00 09/03/18 11:57 09/03/18 11:57 09/03/18 11:57 Intake & Output 09/02/18 09/03/18 09/04/18 06:59 06:59 06:59 Intake Total 3436 2247 Output Total 1200 100 Balance 2236 2147 Weight 55.8 kg 55.4 kg General appearance: PRESENT: no acute distress, cooperative Head exam: PRESENT: atraumatic, normocephalic Eye exam: PRESENT: conjunctiva pink Mouth exam: PRESENT: moist Neck exam: ABSENT: carotid bruit, full ROM, JVD, lymphadenopathy, meningismus, tenderness, thyromegaly, tracheal deviation, tracheostomy, other Respiratory exam: PRESENT: clear to auscultation destiney. ABSENT: rales, rhonchi, wheezes GI/Abdominal exam: PRESENT: normal bowel sounds, soft. ABSENT: distended, guarding, mass, organolmegaly, rebound, tenderness Neurological exam: PRESENT: alert, awake Results Laboratory Results: 09/02/18 10:44 09/02/18 10:44 09/03/18 04:49 Vitamin B12 353.0 08/30/18 08/30/18 14:47 14:47 Creatine Kinase 24 L CK-MB (CK-2) 0.46 Troponin I 0.015 Impressions: Chest X-Ray 08/30/18 14:39 IMPRESSION: NO ACUTE FINDINGS. Elbow X-Ray 08/30/18 14:39 IMPRESSION: NO FRACTURE. Head CT 08/30/18 14:39 IMPRESSION: No acute intracranial findings. EVIDENCE OF ACUTE STROKE: NO. Abdomen Ultrasound 08/31/18 00:00 IMPRESSION: 1. Bilateral pleural effusions. Moderate amount of ascites. 2. No evidence of hydronephrosis. 3. The examination is limited due to patient positioning. Carotid Doppler Study 08/31/18 00:00 IMPRESSION: NO HEMODYNAMICALLY SIGNIFICANT STENOSIS. Assessment & Plan - Diagnosis (1) Adult failure to thrive Is this a current diagnosis for this admission?: Yes Plan: Nutritional supplement and also patient started on Megace. (2) Recurrent falls Is this a current diagnosis for this admission?: Yes Plan: Due to debility and deconditioning. Patient would benefit from short-term inpatient rehab. (3) Hypokalemia Is this a current diagnosis for this admission?: Yes Plan: Improving. Today his potassium is 3.2 and I ordered Klor-Con 40 mg p.o. stat. (4) Hematuria Is this a current diagnosis for this admission?: Yes Plan: Stable. (5) Chronic inflammatory demyelinating neuropathy Is this a current diagnosis for this admission?: Yes Plan: Patient has been on Solu-Cortef and fludrocortisone since 2011. Patient is steroid dependent. (6) History of prostate cancer Is this a current diagnosis for this admission?: Yes Plan: In remission (7) History of non-Hodgkin's lymphoma Is this a current diagnosis for this admission?: Yes Plan: Remission (8) Dementia Is this a current diagnosis for this admission?: Yes
[2018-09-04] MEDS: LANSOPRAZOLE 30 MG TAB.RAP.DR PO SCH (06:22)
--- NOTE | 2018-09-04 09:05 | PDOC TRANSFER SUMMARY ---
General - Admit/Disc Date/PCP Admission Date/Primary Care Provider: 09/01/18 14:06 HEMAL NAVARRETE MD Discharge Date: 09/04/18 - Discharge Diagnosis (1) Adult failure to thrive Is this a current diagnosis for this admission?: Yes (2) Recurrent falls Is this a current diagnosis for this admission?: Yes (3) Hypokalemia Is this a current diagnosis for this admission?: Yes (4) Hematuria Is this a current diagnosis for this admission?: Yes (5) Chronic inflammatory demyelinating neuropathy Is this a current diagnosis for this admission?: Yes (6) History of prostate cancer Is this a current diagnosis for this admission?: Yes (7) History of non-Hodgkin's lymphoma Is this a current diagnosis for this admission?: Yes (8) Dementia Is this a current diagnosis for this admission?: Yes - Additional Information Home Medications: Aspirin [Ecotrin 81 mg EC Tablet] 81 mg PO DAILY 08/31/18 Fludrocortisone Acetate [Florinef 0.1 mg Tablet] 0.1 mg PO DAILY 08/31/18 Hydrocortisone [Cortef] 5 mg PO DAILY 08/31/18 Hydrocortisone [Cortef] 20 mg PO DAILY 08/31/18 Multivitamin [Daily Multiple Vitamin] 1 each PO DAILY 08/31/18 History of Present Illness Admission Date/PCP: 09/01/18 14:06 HEMAL NAVARRETE MD History of Present Illness: JOSIE TRUONG is a 83 year old male has medical history of 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 Patient's who is accompanying him stating that he does not have any energy, low appetite, denies weakness, his falls are due to feeling weak in his legs. States that before falling he feels like his legs are giving out, denies any palpitation, lightheadedness, chest pain, vertigo seeding falls, he denies loss of consciousness post fall. denies witnessing any convulsions, confusion post fall. And has been on prednisone since 2012 recently was switched to hydrocortisone and fludrocortisone with no apparent changes in his weakness. He denies any fever, chills, chest pain, shortness of breath, nausea, vomiting, diarrhea, constipation or any urinary symptoms. 3 months ago he had MRI of brain which did not show any acute abnormality except for changes consistent with aging. He used to be independent but recently has been dependent on his 's help due to recurrent falls and worsening weakness. 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 CT head negative for any acute abnormalities. Chest x-ray negative for any acu te abnormalities. CBC within normal limits, CMP within normal limits except for low potassium, UA positive for hematuria. 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 He presented to ED on 08/25/[address] for [address] head without contrast was negative for any acute abnormalities. CT cervical spine negative for any acute changes. Hospital Course Hospital Course: This is a 83 years old male patient with past medical history of non- Hodgkin's lymphoma status post chemotherapy and bone marrow transplant now in remission, history of prostate cancer status post prostatectomy, dementia, history of chronic inflammatory demyelinating neuropathy and steroid dependent, brought from home with chief complaint of debility weakness and recurrent falls. Dentition patient also found to have hypokalemia which is now corrected. Patient has been on Megace to boost his appetite.His Vitamin D and B12 level are within normal limit.Patient qualify for short term inpatient Rehab.I will continue all his home med and send him with Megace and VitD. Physical Exam Vital Signs: Temp Pulse Resp BP Pulse Ox 98.4 F 71 18 116/74 96 09/04/18 00:02 09/04/18 02:00 09/03/18 20:00 09/04/18 00:02 09/04/18 00:02 Intake & Output 09/03/18 09/04/18 09/05/18 06:59 06:59 06:59 Intake Total 2247 1380 Output Total 100 Balance 2147 1380 Weight 55.4 kg 55 kg General appearance: PRESENT: no acute distress, cooperative Head exam: PRESENT: atraumatic Eye exam: PRESENT: conjunctiva pink Neck exam: ABSENT: carotid bruit, JVD, lymphadenopathy, thyromegaly Respiratory exam: PRESENT: clear to auscultation destiney. ABSENT: rales, rhonchi, wheezes Cardiovascular exam: PRESENT: RRR. ABSENT: diastolic murmur, rubs, systolic murmur GI/Abdominal exam: PRESENT: normal bowel sounds, soft. ABSENT: distended, guarding, mass, organolmegaly, rebound, tenderness Neurological exam: PRESENT: alert, awake Results Laboratory Results: 09/02/18 10:44 09/02/18 10:44 08/30/18 08/30/18 14:47 14:47 Creatine Kinase 24 L CK-MB (CK-2) 0.46 Troponin I 0.015 Impressions: Chest X-Ray 08/30/18 14:39 IMPRESSION: NO ACUTE FINDINGS. Elbow X-Ray 08/30/18 14:39 IMPRESSION: NO FRACTURE. Head CT 08/30/18 14:39 IMPRESSION: No acute intracranial findings. EVIDENCE OF ACUTE STROKE: NO. Abdomen Ultrasound 08/31/18 00:00 IMPRESSION: 1. Bilateral pleural effusions. Moderate amount of ascites. 2. No evidence of hydronephrosis. 3. The examination is limited due to patient positioning. Carotid Doppler Study 08/31/18 00:00 IMPRESSION: NO HEMODYNAMICALLY SIGNIFICANT STENOSIS. Qualifiers - * PATIENT BEING DISCHARGED WITH ANY OF THE FOLLOWING DIAGNOSIS: No
[2018-09-04] MEDS: MULTIVITAMIN TABLET PO SCH (10:26)
[2018-09-04] MEDS: DOCUSATE SODIUM 100 MG CAPSULE PO SCH (10:26)
[2018-09-04] MEDS: CALCIUM CARBONATE 500 MG TABLET PO SCH (10:26)
[2018-09-04] MEDS: CARVEDILOL 6.25 MG TABLET PO SCH (10:26)
[2018-09-04] MEDS: ASPIRIN 81 MG TABLET, ENT COATED PO SCH (10:26)
[2018-09-04] MEDS: FLUDROCORTISONE ACETATE 0.1 MG TABLET PO SCH (10:28)
[2018-09-04] MEDS: HYDROCORTISONE 10 MG TABLET PO SCH (10:28)
[2018-09-04] MEDS: ENOXAPARIN SODIUM INJ 40 MG/0.4 ML DISP.SYRIN SUBCUT SCH (10:29)
[2018-09-04] MEDS: MEGESTROL ACETATE 20 MG TABLET PO SCH (10:29)
[2018-09-04] MEDS: MAGNESIUM SULFATE/D5W 1 GM/100 ML RTUPB IV SCH ×2 (10:29→12:07)
[2018-09-04 13:26] VITALS: BP 147/61
== END 2018-09-04 14:05 | DRG 641 ==
LOC: ER 14:21 → EH 17:14 → INTOOBSV 17:14 → 4S 19:25 → 4N 08-31 10:58 → OBSVTOIN 09-01 14:06
PROVIDERS: ADMIT Internal Medicine; ATTEND Internal Medicine
PROC: 0HQDXZZ Repair Right Lower Arm Skin, External Approach (ICD-10-PCS; principal; 2018-09-01)
DX: E87.6 Hypokalemia (principal); E44.0 Moderate protein-calorie malnutrition; G61.81 Chronic inflammatory demyelinating polyneuritis; Z68.1 Body mass index [BMI] 19.9 or less, adult; S51.011A Laceration without foreign body of right elbow, initial encounter; R31.9 Hematuria, unspecified; I10 Essential (primary) hypertension; K21.9 Gastro-esophageal reflux disease without esophagitis; R62.7 Adult failure to thrive; R41.3 Other amnesia; W19.XXXA Unspecified fall, initial encounter; Y93.89 Activity, other specified; Y92.89 Other specified places as the place of occurrence of the external cause; Z91.81 History of falling; Z85.46 Personal history of malignant neoplasm of prostate; Z90.79 Acquired absence of other genital organ(s); Z79.1 Long term (current) use of non-steroidal anti-inflammatories (NSAID); Z79.82 Long term (current) use of aspirin; Z79.52 Long term (current) use of systemic steroids; Z79.899 Other long term (current) drug therapy; Z85.72 Personal history of non-Hodgkin lymphomas
CPT/HCPCS: 36415; 70450; 71045; 76700; 80048; 80053; 81001; 82272; 82306; 82550; 82553; 82607; 83735; 84100; 84134; 84439; 84443; 84481; 84484; 85025; 85027; 87086; 93005; 93010; 93306; 93880; 99282; G0378; J0360; J1650; J3475; J3480; J3490; J7030; S0119